=== PATIENT | female | born 1995 | race Caucasian/White ===

== ENCOUNTER 2024-06-01 17:53 | Emergency (ER) | payer MEDICAID, SELFPAY ==
[2024-06-01 17:54] VITALS: PULSE 94; O2SAT 98
[2024-06-01 18:04] VITALS: BP 128/83; PULSE 93; RESP 18; TEMP 36.8; O2SAT 99; BMI 28.1
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
[2024-06-01 19:09] LABS: Collection Type, Urine Clean Catch
[2024-06-01 19:14] LABS: Basophils # (Auto) 0.1 Thou/mm3 (0.0-0.2); Basophils % (Auto) 1 % (0-2.5); Eosinophils # (Auto) 0.4 Thou/mm3 (0.0-0.5); Eosinophils % (Auto) 4 % (0-10); Hematocrit 37.6 % (36.0-46.0); Hemoglobin 12.3 g/dL (12.0-16.0); Immature Granulocytes % (Auto) 0 % (0-0); Immature Granulocytes Auto 0.03 Thou/mm3 (0.00-0.00); Lymphocytes # (Auto) 2.2 Thou/mm3 (1.0-4.8); Lymphocytes % (Auto) 22 % (10-50); Mean Corpuscular HGB Conc 32.7 g/dl (31.0-37.0); Mean Corpuscular Hemoglobin 27.3 pg (25.0-35.0); Mean Corpuscular Volume 83 fL (80-100); Monocytes # (Auto) 0.6 Thou/mm3 (0.0-0.8); Monocytes % (Auto) 6 % (0-12); Neutrophils # (Auto) 6.8 Thou/mm3 (1.8-7.7); Neutrophils % (Auto) 67 % (37-80); Nucleated Red Blood Cell % 0 /100 WBC (0); Platelet Count 323 Thou/mm3 (140-440); RDW Standard Deviation 46.1 fL (36.4-46.3); Red Blood Count 4.51 Miln/mm3 (4.00-5.20); White Blood Count 10.1 Thou/mm3 (3.6-11.0)
[2024-06-01 19:26] LABS: Bacteria,Urine Rare; Bilirubin,Urine Negative (Negative); Blood,Urine 1+ (Negative); Clarity,Urine Clear (Clear/Hazy); Color,Urine Lt-Yellow (Lt Yel-Yel); Glucose, Urine Negative (Negative); Ketones,Urine Negative (Negative); Leukocyte Esterase,Urine Positive (Negative); Nitrite,Urine Positive (Negative); PH,Urine 5.5 (5.0-7.0); Protein,Urine Negative (Neg - Trace); RBC,Urine 3 /hpf (0-3); Specific Gravity,Urine 1.019 (1.001-1.035); Squamous Epithelial Cell,Urine 5 /hpf (0-5); Urobilinogen,Urine Negative mg/dL (0.0-1.0); WBC,Urine 7 /hpf (0-5)
[2024-06-01 19:27] LABS: HCG Qualitative,Urine Negative
[2024-06-01 19:33] LABS: Alanine Aminotransferase 8 U/L (10-49); Albumin, Serum 4.8 gm/dL (3.5-5.0); Albumin/Globulin Ratio 1.4 (1.2-2.2); Alkaline Phosphatase 81 U/L (46-116); Anion Gap 6 (7-16); Aspartate Amino Transferase 14 U/L (0-34); BUN/Creatinine Ratio 13 Ratio (12-20); Bilirubin,Total 0.4 mg/dL (0.3-1.2); Blood Urea Nitrogen 12 mg/dL (9-23); Calcium 9.7 mg/dL (8.3-10.6); Calcium (Corrected) 9.7 mg/dL (8.5-10.1); Carbon Dioxide 26.7 mMol/L (20.0-31.0); Chloride 106 mMol/L (98-107); Creatinine (Component) 0.9 mg/dL (0.6-1.3); Estimated Creatinine Clearance 92.8 mL/min (>60); Globulin 3.4 gm/dL (2.3-3.5); Glucose 97 mg/dL (74-106); Lipase 48 U/L (12-53); Osmolality,Calculated 277 (275-295); Potassium 3.8 mMol/L (3.4-5.1); Sodium 139 mMol/L (136-145); Total Protein 8.2 gm/dL (5.7-8.2); eGFR > 60 See Note
[2024-06-01 19:36] LABS: Amphetamine/Methamp Scrn,U Negative (Negative); Barbiturate Screen,Urine Negative (Negative); Benzodiazepines Screen,Urine Negative (Negative); Benzoylecgonine Screen, Ur Negative (Negative); Fentanyl Screen,Urine Negative (Negative); Opiate Screen,Urine Negative (Negative); THC Screen,Urine Negative (Negative)
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
== END 2024-06-01 23:02 | disposition home or self-care (01) ==
PROVIDERS: Physician Assistant; Emergency Provider Emergency Medicine; PCP Family Medicine
DX: R11.2 Nausea with vomiting, unspecified (principal); R19.7 Diarrhea, unspecified
CPT/HCPCS: 36415; 80053; 80307; 81001; 81025; 83690; 85025; 99283

== ENCOUNTER 2024-06-03 16:55 | Emergency (ER) | payer MEDICAID, SELFPAY ==
[2024-06-03 17:12] VITALS: BP 125/81; PULSE 89; RESP 19; TEMP 37.1; O2SAT 98; BMI 26.1
--- NOTE | 2024-06-03 17:12 | XR_ITS ---
Examination: PA lateral chest 2 views TECHNIQUE: Upright PA lateral chest 2 views Exam date and time: June 03, 2024 1816 hours Comparison August 29, 2021 INDICATIONS: Coughing beginning 3 days ago. FINDINGS: Accentuation basilar bronchovascular markings Normal heart size Normal Fracture right clavicle IMPRESSION: Basilar bronchitis pattern
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
--- NOTE | 2024-06-03 17:12 | PD.EDRME ---
Rapid Medical Screening Exam RME Arrival date/time: 06/03/24 16:55 29-year-old female presents the emergency department complaints of nausea, headache, generalized bodyaches and abdominal pain as well as constipation x 2 days Chief Complaint: Dizziness
[2024-06-03 18:06] LABS: Basophils # (Auto) 0.2 Thou/mm3 (0.0-0.2); Basophils % (Auto) 2 % (0-2.5); Eosinophils # (Auto) 0.4 Thou/mm3 (0.0-0.5); Eosinophils % (Auto) 4 % (0-10); Hemoglobin 11.9 g/dL (12.0-16.0); Immature Granulocytes % (Auto) 0 % (0-0); Immature Granulocytes Auto 0.02 Thou/mm3 (0.00-0.00); Lymphocytes % (Auto) 22 % (10-50); Mean Corpuscular HGB Conc 33.1 g/dl (31.0-37.0); Mean Corpuscular Hemoglobin 27.3 pg (25.0-35.0); Mean Corpuscular Volume 83 fL (80-100); Monocytes # (Auto) 0.6 Thou/mm3 (0.0-0.8); Monocytes % (Auto) 6 % (0-12); Neutrophils # (Auto) 6.2 Thou/mm3 (1.8-7.7); Neutrophils % (Auto) 67 % (37-80); Nucleated Red Blood Cell % 0 /100 WBC (0); Platelet Count 299 Thou/mm3 (140-440); RDW Standard Deviation 44.9 fL (36.4-46.3); Red Blood Count 4.36 Miln/mm3 (4.00-5.20); White Blood Count 9.3 Thou/mm3 (3.6-11.0)
[2024-06-03 19:29] LABS: Alanine Aminotransferase 8 U/L (10-49); Albumin, Serum 4.7 gm/dL (3.5-5.0); Albumin/Globulin Ratio 1.6 (1.2-2.2); Alkaline Phosphatase 79 U/L (46-116); Anion Gap 7 (7-16); Aspartate Amino Transferase 14 U/L (0-34); BUN/Creatinine Ratio 10 Ratio (12-20); Bilirubin,Total 0.5 mg/dL (0.3-1.2); Blood Urea Nitrogen 8 mg/dL (9-23); Calcium 9.1 mg/dL (8.3-10.6); Calcium (Corrected) 9.1 mg/dL (8.5-10.1); Carbon Dioxide 24.7 mMol/L (20.0-31.0); Chloride 105 mMol/L (98-107); Creatinine (Component) 0.8 mg/dL (0.6-1.3); Estimated Creatinine Clearance 108.3 mL/min (>60); Glucose 97 mg/dL (74-106); Lipase 38 U/L (12-53); Osmolality,Calculated 272 (275-295); Potassium 3.8 mMol/L (3.4-5.1); Sodium 137 mMol/L (136-145); Total Protein 7.7 gm/dL (5.7-8.2); eGFR > 60 See Note
[2024-06-03 20:15] LABS: Collection Type, Urine Clean Catch
[2024-06-03 21:01] LABS: Bilirubin,Urine Negative (Negative); Blood,Urine 1+ (Negative); Color,Urine Yellow (Lt Yel-Yel); Culture Indicated,Urine Contaminated; Glucose, Urine Negative (Negative); Hyaline Casts,Urine < 1 /hpf (0-1); Ketones,Urine Negative (Negative); Leukocyte Esterase,Urine Positive (Negative); Nitrite,Urine Positive (Negative); Protein,Urine 1+ (Neg - Trace); RBC,Urine 15 /hpf (0-3); Specific Gravity,Urine 1.023 (1.001-1.035); Squamous Epithelial Cell,Urine 40 /hpf (0-5); Urobilinogen,Urine Negative mg/dL (0.0-1.0); WBC,Urine 40 /hpf (0-5)
[2024-06-03 21:03] LABS: Clarity,Urine Turbid (Clear/Hazy); HCG Qualitative,Urine Negative
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
--- NOTE | 2024-06-03 22:45 | PC.NURSE ---
Pt called for DC instructions and no answer at time
[2024-06-04 00:12] LABS: Stool for WBCs Negative (Negative)
[2024-06-04 07:44] LABS: Clostridium Difficile PCR Negative (Negative)
== END 2024-06-03 23:18 | disposition home or self-care (01) ==
PROVIDERS: Nurse Practitioner Primary Care; Emergency Provider Emergency Medicine; PCP Family Medicine
DX: R19.7 Diarrhea, unspecified (principal); R05.9 Cough, unspecified; S32.10XA Unspecified fracture of sacrum, initial encounter for closed fracture; W34.00XA Accidental discharge from unspecified firearms or gun, initial encounter
CPT/HCPCS: 36415; 71046; 74176; 80053; 81001; 81025; 83690; 85025; 87015; 87045; 87046; 87077; 87205; 87400; 87493; 87811; 87899; 99284

== ENCOUNTER 2024-06-08 19:39 | Emergency (ER) | payer MEDICAID, SELFPAY ==
[2024-06-08 19:39] VITALS: BMI 27.9
[2024-06-08 20:33] VITALS: BP 132/74; PULSE 83; RESP 16; TEMP 36.7; O2SAT 100
--- NOTE | 2024-06-08 20:40 | PD.EDRME ---
Rapid Medical Screening Exam [facility] Arrival date/time: 06/08/24 19:39 29F with history of psych presents to ED with continued N/V, dizziness, ab cramping, and non-bloody diarrhea. Patient has been here multiples times in the past week for this. Patient states she's now and has clear vaginal discharge, but no vaginal bleeding. Chief Complaint: Abdominal Pain Vital signs: Vital Signs Temperature 98.0 F 06/08/24 20:33 Pulse Rate 83 06/08/24 20:33 Respiratory Rate 16 06/08/24 20:33 Blood Pressure 132/74 H 06/08/24 20:33 Pulse Oximetry (%) 100 06/08/24 20:33 Oxygen Delivery Method Room Air 06/08/24 20:33
[2024-06-08 21:12] LABS: Basophils # (Auto) 0.2 Thou/mm3 (0.0-0.2); Basophils % (Auto) 1 % (0-2.5); Eosinophils # (Auto) 0.4 Thou/mm3 (0.0-0.5); Eosinophils % (Auto) 3 % (0-10); Hematocrit 36.2 % (36.0-46.0); Hemoglobin 12.1 g/dL (12.0-16.0); Immature Granulocytes % (Auto) 0 % (0-0); Immature Granulocytes Auto 0.05 Thou/mm3 (0.00-0.00); Lymphocytes # (Auto) 2.3 Thou/mm3 (1.0-4.8); Lymphocytes % (Auto) 18 % (10-50); Mean Corpuscular HGB Conc 33.4 g/dl (31.0-37.0); Mean Corpuscular Hemoglobin 27.4 pg (25.0-35.0); Mean Corpuscular Volume 82 fL (80-100); Monocytes # (Auto) 0.7 Thou/mm3 (0.0-0.8); Monocytes % (Auto) 6 % (0-12); Neutrophils # (Auto) 8.9 Thou/mm3 (1.8-7.7); Neutrophils % (Auto) 71 % (37-80); Nucleated Red Blood Cell % 0 /100 WBC (0); Platelet Count 303 Thou/mm3 (140-440); RDW Standard Deviation 43.8 fL (36.4-46.3); Red Blood Count 4.41 Miln/mm3 (4.00-5.20); White Blood Count 12.6 Thou/mm3 (3.6-11.0)
[2024-06-08 21:49] LABS: Alanine Aminotransferase 8 U/L (10-49); Albumin, Serum 4.9 gm/dL (3.5-5.0); Albumin/Globulin Ratio 1.6 (1.2-2.2); Alkaline Phosphatase 80 U/L (46-116); Anion Gap 9 (7-16); Aspartate Amino Transferase 19 U/L (0-34); BUN/Creatinine Ratio 16 Ratio (12-20); Beta HCG,Quantitative 184 mIU/mL (<5.0); Bilirubin,Total 0.4 mg/dL (0.3-1.2); Blood Urea Nitrogen 13 mg/dL (9-23); Calcium 9.6 mg/dL (8.3-10.6); Calcium (Corrected) 9.6 mg/dL (8.5-10.1); Carbon Dioxide 23.8 mMol/L (20.0-31.0); Chloride 105 mMol/L (98-107); Creatinine (Component) 0.8 mg/dL (0.6-1.3); Globulin 3.1 gm/dL (2.3-3.5); Glucose 84 mg/dL (74-106); Lipase 42 U/L (12-53); Osmolality,Calculated 274 (275-295); Potassium 4.5 mMol/L (3.4-5.1); Sodium 138 mMol/L (136-145); eGFR > 60 See Note
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
[2024-06-08 23:26] VITALS: BP 149/87; PULSE 116; RESP 16; TEMP 36.8; O2SAT 100
[2024-06-08 23:29] LABS: Collection Type, Urine Clean Catch
--- NOTE | 2024-06-08 23:35 | EDNOTE_ITS ---
ED Abdominal Pain RME/HPI General Chief Complaint: Abdominal Pain Stated complaint: ABD PAIN, 5 WEEKS PREG. Arrival date/time: 06/08/24 19:39 RME / HPI RME / HPI narrative: 06/08/24 19:39 29F with history of psych presents to ED with continued N/V, dizziness, ab cramping, and non-bloody diarrhea. Patient has been here multiples times in the past week for this. Patient states she's now and has clear vaginal discharge, but no vaginal bleeding. ----- Dr. Mckenzie?s Main ED Evaluation: 29yo female who is 3wk 3d gestation by LMP presents to the ED for a chief complaint of left-sided abdominal pain x 1.5 months. Patient states her pain is intermittent. She states she's been taking Tylenol and ibuprofen without any alleviation of symptoms, so she came in for evaluation. She states she was seen at [facility] recently and was told she was . She had a follow-up appointment with her PCP at [facility] today, reporting her beta HCG level was 83. She reports associated nausea, intermittent vomiting, and watery diarrhea. She denies any bloody/black stools, UTI symptoms, vaginal bleeding, vaginal discharge, any foul-smelling odor, pelvic pain or any other associated symptoms. She denies taking any antacids. She has not seen an OB yet, but has an appointment on 06/12/24. LMP is 05/16/24-05/18/27 per patient. Patient notes she was started on cephalexin today by her PCP due to her urinalysis showing signs of UTI, and was given it for preventative measures. Related Data Previous Rx's ?Medication ?Instructions ?Recorded hydrocodone 5 mg-acetaminophen 325 1 tab PO BID PRN pain #6 tabs 04/25/24 mg tablet loperamide 2 mg capsule (Imodium 2 mg PO Q6H PRN loose stool #14 06/01/24 A-D) caps ondansetron 4 mg disintegrating 4 mg PO Q8H #14 tabs 06/01/24 tablet cephalexin 500 mg capsule 500 mg PO TID #15 caps 06/09/24 Allergies Allergy/AdvReac Type Severity Reaction Status Date / Time No Known Allergies Allergy Verified 04/25/24 13:47 Review of Systems Review of Systems Systems Reviewed: All systems reviewed, normal except as documented Narrative Review of Systems: Gen: No fever, no chills, no weight loss EYES: No discharge, no visual changes, no pain HEENT: No ear pain, no congestion, no sore throat PULM: No shortness of breath, no cough, no congestion CV: No chest pain, no dyspnea on exertion, no palpitations GI: + nausea, + vomiting, + diarrhea, + pain, no constipation : No frequency, no urgency, no dysuria Musc/skel: No joint pain, no back pain Skin: No rash Psyc: No hallucinations, no depression Heme/Lymph: No easy bleeding or bruising tendencies Neuro: No weakness, no headache Past Medical History Past Medical History NEUROLOGIC: Positive Migraine; Negative Neurological Disorders, Cerebrovascular Accident, Transient Ischemic Attacks (TIA), Dementia, Alzheimer's Disease, Parkinson's Disease, Brain Tumor, Meningitis, Seizures, Epilepsy, Multiple Sclerosis, Cerebral Palsy, Amyotrophic Lateral Sclerosis (ALS/Monse Gehrig's), Guillain-Fountain Syndrome, Spina Bifida, Paralysis, Peripheral Neuropathy, Stein's Palsy, Subdural Hematoma, Head Trauma, Spinal Cord Injury or Traumatic Brain Injury CARDIAC: Positive Cardiac Arrhythmia and Heart Murmur; Negative Cardiac Disorders, Myocardial Infarction, Atrial Fibrillation, Angina, Coronary Artery Disease, Atherosclerotic Heart Disease, Peripheral Vascular Disease, Hypercholesterolemia, Aneurysm, Congestive Heart Failure, Congenital Heart Disease, Valvular Heart Disease, Rheumatic Fever, Cardiomyopathy, Edema, Pericarditis, Cellulitis, Deep Vein Thrombosis, Hypertension, Hypotension or Varicose Veins RESPIRATORY: Negative Chronic Obstructive Pulmonary Disease (COPD), Asthma, Bronchitis, Emphysema, Pneumonia, Pulmonary Fibrosis, Cystic Fibrosis, Tuberculosis, Pulmonary Embolism, Pulmonary Edema or Sleep Apnea GASTROINTESTINAL: Negative Gastrointestinal Disorders, Hepatitis, Cirrhosis, Pancreatitis, Celiac Disease, Gall Bladder Disease, Gastrointestinal Bleed, Esophageal Varices, Heath's Esophagus, Colitis, Ulcerative Colitis, Diverticulitis, Diverticulosis, Ulcer, Colorectal Cancer, Irritable Bowel, Crohn's Disease, Obstructive Bowel, Hiatal Hernia, Hemorrhoids, Gastroesophageal Reflux Disease or Obesity GENITOURINARY: Negative Genitourinary Disorders, Renal Disease, Kidney Stones, Polycystic Kidney Disease, Neurogenic Bladder, Inguinal Hernia, Dialysis, Prostate Cancer or Benign Prostatic Hyperplasia REPRODUCTIVE: Positive Gonorrhea, Previous Pregnancies and Syphilis; Negative Breast Cancer, Endometriosis, Genital Herpes, Pelvic Inflammatory Disease, Testicular Cancer or Uterine Prolapse MUSCULOSKELETAL: Negative Musculoskeletal Disorders, Muscular Dystrophy, Myasthenia Gravis, Marfan's Syndrome, Bone Cancer, Arthritis, Rheumatoid Arthritis, Osteoporosis, Degenerative Disk Disease, Gout, Scoliosis, Carpal Tunnel Syndrome, Fibromyalgia, Fractures, Degenerative Joint Disease, Osteomyelitis or Poliovirus ENT: Negative Cataracts, Glaucoma, Blind, Retinal Detachment, Macular Degeneration, Ear Infection, Deafness, Head Trauma or Eye Prosthesis ENDOCRINE: Negative Endocrine Disorders, Diabetes Mellitus Type 1, Diabetes Mellitus Type 2, Hypoglycemia, Leroy's Syndrome, Girdletree's Disease, Hyperthyroidism, Hypothyroidism, Parathyroid Disease, Pituitary Disease, Systemic Lupus Erythematosus, Syndrome of Inappropriate Antidiuretic Hormone (SIADH), Adrenal Disease or Graves' Disease HEMATOLOGIC: Positive Blood Disorders and Anemia; Negative Leukemia, Hemophilia, Thalassemia, Sickle Cell Disease or Clotting Problems PSYCHO/SOCIAL: Positive Bipolar Disorder and Depression; Negative Psychiatric Problems, Schizophrenia, Recreational Drug Use, Depression, Anxiety, Self-Mutilation, Attention Deficit Disorder, Attention Deficit Hyperactivity Disorder, Post Traumatic Stress Disorder or Eating Disorder OTHER HISTORY: Positive Hospitalization and Blood Transfusions; Negative Autoimmune Disease, Down Syndrome, Autism, Developmental Delay, Shingles, Falls, Blood Transfusion Reaction, Anesthesia Reactions, Organ Transplant, Chemotherapy, Radiation Therapy, Hyperbaric Therapy, MRSA, VRSA, Van comycin-Resistant Enterococci, Human Immunodeficiency Virus (HIV), Chicken Pox, Measles, Mumps, Rubella (Cypriot Measles), Pertussis, Clostridium Difficile, Cancer, Breast Cancer, Cervical Cancer, Colorectal Cancer, Lung Cancer, Ovarian Cancer, Prostate Cancer or Testicular Cancer Family History FAMILY HISTORY: Positive Family Respiratory Disorders and Family Cancer; Negative Family Psychiatric Problems, Family Cardiac Disorders, Family Gastrointestinal Problems, Family Surgery or Family Anesthesia Reaction Surgical History SURGICAL: Positive Mastectomy; Negative Cardiac Surgery, Open Heart Surgery, Coronary Artery Bypass Graft, Valve Replacement, Vascular Surgery, Coronary Stent, Cardiac Catheterization, Pacemaker, Angiogram, Auto Implanted Cardiovert Defib, Carotid Endarterectomy, Endocrine Surgery, Thyroidectomy, Ear Surgery, Tympanostomy Tube, Eye Surgery, Nose Surgery, Oral Surgery, Tonsillectomy, Adenoidectomy, Cochlear Implant, Corneal Transplant, Throat Surgery, Abdominal Surgery, Tracheostomy, Gastric Bypass Surgery, Gastrostomy, Bowel Surgery, Nephrectomy, Transurethral Resection, Joint Replacement, Amputation, Open Reduction Internal Fixation, Arthroscopy, Neurologic Surgery, Brain Shunt, Lumpectomy, Hysterectomy, Tubal Ligation, Section, Vasectomy or Organ Transplant Social History SMOKING STATUS: Never smoker SECOND HAND EXPOSURE: No SUBSTANCE USE: does not use ED Exam Narrative Physical exam: GENERAL APPEARANCE: alert and oriented x 4, well-developed, well-nourished, no acute distress HEENT: Normocephalic, atraumatic; pupils equal, round, reactive to light; EOMI; mucous membranes pink, moist; oropharynx clear NECK: Supple LUNGS: CTABL; no wheezes, no rales, no rhonchi HEART: Regular rate, regular rhythm; normal S1, S2; no murmurs ABDOMEN: non distended; normal BS; soft, no tenderness, no guarding, no rebound; no masses, no organomegaly, no hernia BACK: no CVA tenderness EXTREMITIES: atraumatic; no edema NEUROLOGIC: awake; alert and oriented x4; cranial nerves II-XII grossly intact; no focal sensory or motor deficits PSYCHIATRIC: appropriate mood and affect SKIN: warm, dry, normal color; no rashes Course Quality Measures none Orders Category Date Time Status Insert IV NOW Care 06/09/24 01:48 Completed US OB transvaginal Stat Exams 06/08/24 21:50 Completed US renal BI Stat Exams 06/09/24 01:35 Completed Beta HCG,Quantitative Stat Lab 06/08/24 21:06 Completed CBC Stat Lab 06/08/24 21:06 Completed CMP [Comprehensive Metabolic Panel] Stat Lab 06/08/24 21:06 Completed Lipase Stat Lab 06/08/24 21:06 Completed Urinalysis Stat Lab 06/08/24 23:58 Completed Urinalysis, C/S if Indicated Stat Lab 06/08/24 23:20 Completed HYDROcodone*/APAP 5/325 [[place] 5/325] Med 06/09/24 01:38 Discontinued 1 tab PO X1 ONE Lidocaine 2% Viscous [Xylocaine 2% Viscous] Med 06/09/24 01:38 Discontinued 15 ml PO X1 ONE Sodium Chloride 0.9% 1000 ml [Ns] 1,000 ml Med 06/09/24 01:37 Discontinued IV 999 mls/hr Sucralfate Susp [Carafate Susp] Med 06/09/24 01:38 Discontinued 1 gm PO X1 ONE cefTRIAXone [Rocephin] 1,000 mg Med 06/09/24 01:37 Discontinued Sodium Chloride 0.9% (P) [Ns 0.9% (P)] 50 ml IV X1 Vital Signs Vital signs: Vital Signs Temperature 98.0 F 06/08/24 20:33 Pulse Rate 83 06/08/24 20:33 Respiratory Rate 16 06/08/24 20:33 Blood Pressure 132/74 H 06/08/24 20:33 Pulse Oximetry (%) 100 06/08/24 20:33 Oxygen Delivery Method Room Air 06/08/24 20:33 Pulse ox is 100% on room air, which is normal according to my interpretation. Abdominal Pain MDM MDM Narrative MDM Narrative:: Scribe Attestation: 06/08/24 - Tresa Devine am scribing for and in the presence of Dr. Mckenzie. Patient would be 3weeks 3 days gestation by LMP. Patient data External records reviewed:: [facility] previous records (Per chart review, patient was seen here on ) Clinical information provided by:: patient Social determinants that could affect healthcare access:: none Patient has the following chronic illnesses:: none How is presenting disease/condition affected by chronic disease/condition?: no chronic disease Evaluation data The following diagnostics were reviewed and interpreted by me:: lab results and radiology exam(s) Lab and/or radiology exams considered but not ordered:: none Interpretation Summary: WBC count is elevated at 12.6, CMP is normal, Lipase is normal, Beta HCG is 184, UA shows 4 RBCs, 40 WBCs, and rare bacteria, according to my interpretation. ---- [facility] Report Signed Patient: XANDER VITALE. Record#: [id number] Birthdate: 1995 Age/Sex: 29 / F Location: [facility] Attending Dr: Ordering Physician: Cesar Shea PA-C Date of Service: 06/08/24 Procedure(s): US OB transvaginal Accession Number(s): [id number] cc: Ronnie Rodriguez MD; NO PRIMARY/FAMILY,PHYSICIAN; Cesar Shea PA-C~ Examination: OB Transvaginal ultrasound of the pelvis, complete Technique: Transvaginal sonographic images pelvis performed using gusman scale imaging Exam date and time: June 08, 2024 at 2156 hrs. Indications: Pelvic pain beginning this week, early by history Findings: Uterus 9.3 x 5.5 x 6.6 cm No intrauterine gestation Right ovary 3.2 x 2.6 x 2.7 cm arterial flow Gestational type sac in the right adnexal region, 0.9 cm corresponding to 5 weeks 5 day gestational age No pole Left ovary 2.5 x 2.0 x 2.0 cm arterial flow Moderate fluid in the cul-de-sac Impression: No intrauterine gestation Findings most consistent with right ectopic . Dictated By: Ronnie Rodriguez MD Signed By: <Electronically signed by Ronnie Rodriguez MD in OV> 06/08/24 2233 [address] Preliminary Report Draft Patient: XANDER VITALE [facility]. Record#: [id number] Birthdate: 1995 Age/Sex: 29 / F Location: [facility] Attending Dr: Ordering Physician: Date of Service: Procedure(s): Accession Number(s): cc: ~ Renal/Retroperitoneal ultrasound with Doppler. June 09, 2024 at 0155 hours Clinical history: Flank pain, UTI. Technique: Duplex scan of the bilateral renal arterial and venous tree was performed utilizing 2D grayscale imaging, Doppler spectral analysis and color flow. Comparison: None available at the time of this report. Findings: Right: The right kidney measures 11.8 cm and is unremarkable. There is no hydronephrosis or renal calculus. The corticomedullary differentiation is maintained. Parenchymal scarring and lobular margins. Left: The left kidney measures 11.2 cm and is unremarkable. There is no hydronephrosis or renal calculus. The corticomedullary differentiation is maintained. Parenchymal scarring and lobular margins. The urinary bladder is unremarkable. No abnormalities detected by Doppler. Impression: No hydronephrosis. Bilateral parenchymal scarring and lobular margins. Report Electronically Signed By: Walter Jacobs 06/09/2024 3:18:54 AM [EST] Medications / Prescriptions Medications or Prescriptions considered but not ordered:: none Medication administrations:: Medication Administration History Discontinued Medications Hydrocodone Bitart/Acetaminophen (Hydrocodone/Apap 5/325 Tablet) 1 tab PO X1 ONE Stop: 06/09/24 01:39 Last Admin: 06/09/24 02:19 Dose: 1 tab Documented By: AGUSTÍN Ceftriaxone Sodium 1,000 mg/ (Sodium Chloride) 50 mls @ 100 mls/hr IV X1 ONE Stop: 06/09/24 02:06 Last Infusion: 06/09/24 02:50 Dose: Infused Documented By: Admin: 06/09/24 02:19 Dose: 100 mls/hr Documented By: AGUSTÍN Sodium Chloride (Ns) 1,000 mls @ 999 mls/hr IV .Q1H1M ONE Stop: 06/09/24 02:37 Last Infusion: 06/09/24 03:21 Dose: Infused Documented By: Admin: 06/09/24 02:18 Dose: 999 mls/hr Documented By: AGUSTÍN Lidocaine HCl (Lidocaine Viscous 2% 15 Ml Udc) 15 ml PO X1 ONE Stop: 06/09/24 01:39 Last Admin: 06/09/24 02:20 Dose: 15 ml Documented By: AGUSTÍN Sucralfate (Sucralfate Susp 1 Gm/10 Ml Udc) 1 gm PO X1 ONE Stop: 06/09/24 01:39 Last Admin: 06/09/24 02:26 Dose: 1 gm Documented By: AGUSTÍN see above Consultations Consultation(s) initiated? (list below): Yes Consultation #1 (Physician, Specialty, Details): Discussed case with [Dr. Valenzuela] from [[facility]] regarding [consultation]. Discussed patients ED course, exam findings, labs, and radiology results. Recommends following up in 2 days for recheck of beta HCG and recheck possible ectopic. Time: 03:25 Diagnosis Differential diagnosis abdominal pain: other (tubercular abscess, ectopic , ovarian cyst, gastritis, enteritis, colitis) Most likely diagnosis given after review of the tests above:: see below Admission Indicated Admission indicated?: not indicated Admission Request Was there a request for admission?: No Disposition Plan Disposition Plan: Discharge Discharge Attestation Discharge Attestation: The patient and all family members were given an opportunity to ask questions and understood the discharge instructions. Discharge instructions specifically effects, indications for sooner follow up or return to the emergency department, and the expected course of current diagnosis. Patient condition: Stable Discharge Plan Plan Patient Disposition: HOME (Self Care) Prescriptions/Referrals Prescriptions/Med Rec: New cephalexin 500 mg capsule 500 mg PO TID Qty: 15 0RF No Action loperamide [Imodium A-D] 2 mg capsule 2 mg PO Q6H PRN (Reason: loose stool) Qty: 14 0RF ondansetron 4 mg tablet,disintegrating 4 mg PO Q8H Qty: 14 0RF hydrocodone-acetaminophen 5-325 mg tablet 1 tab PO BID MDD 10 PRN (Reason: pain) Qty: 6 0RF Referrals: No Primary/Family,Physician [Primary Care Provider] - In 1 week Problem List Clinical Impression: UTI (urinary tract infection), Adnexal mass, Epigastric abdominal pain, , Gastritis Patient/Caregiver Discharge Instructions Education Materials: ED Abdominal Pain Unkn Cause Fem, ED CYSTITIS Female Adult Additional Instructions: Your pelvic ultrasound shows a small mass in the area of the right ovary which may be consistent with an ectopic , however your hormone levels do not correspond with a at that stage. (06/08/24 21:06 [facility] 184) Follow up for repeat evaluation and lab work to check hormone levels in 2 days. Print Language: [place] Stand Alone Forms: Sally Award Info., Patient Portal Info Letter
[2024-06-08 23:38] LABS: Bacteria,Urine Rare; Bilirubin,Urine Negative (Negative); Blood,Urine 1+ (Negative); Clarity,Urine Turbid (Clear/Hazy); Color,Urine Yellow (Lt Yel-Yel); Culture Indicated,Urine Contaminated; Glucose, Urine Negative (Negative); Ketones,Urine Negative (Negative); Leukocyte Esterase,Urine Positive (Negative); Nitrite,Urine Positive (Negative); PH,Urine 5.5 (5.0-7.0); Protein,Urine Trace (Neg - Trace); RBC,Urine 2 /hpf (0-3); Specific Gravity,Urine 1.025 (1.001-1.035); Squamous Epithelial Cell,Urine 12 /hpf (0-5); Urobilinogen,Urine Negative mg/dL (0.0-1.0); WBC,Urine 40 /hpf (0-5)
[2024-06-09 00:13] LABS: Collection Type, Urine Catheter
[2024-06-09 00:17] LABS: Bacteria,Urine Rare; Bilirubin,Urine Negative (Negative); Blood,Urine Trace (Negative); Clarity,Urine Clear (Clear/Hazy); Color,Urine Lt-Yellow (Lt Yel-Yel); Glucose, Urine Negative (Negative); Ketones,Urine Negative (Negative); Leukocyte Esterase,Urine Positive (Negative); Nitrite,Urine Positive (Negative); Protein,Urine Trace (Neg - Trace); RBC,Urine 4 /hpf (0-3); Specific Gravity,Urine 1.025 (1.001-1.035); Squamous Epithelial Cell,Urine 1 /hpf (0-5); Urobilinogen,Urine Negative mg/dL (0.0-1.0); WBC,Urine 40 /hpf (0-5)
--- NOTE | 2024-06-09 01:35 | XR_ITS ---
Examination: Retroperitoneal ultrasound, complete Technique: Multiple high resolution grayscale images of the retroperitoneum obtained, including kidneys and bladder. Exam date and time:June 09, 2024 0155 hours INDICATIONS: Urinary tract infections and bilateral flank pain beginning one month ago FINDINGS: Right kidney 11.8 x 4.8 x 5.8 cm cortex 1.7 cm Left kidney 11.2 x 4.1 x 4.8 cm cortex 1.8 cm Mild to moderate bilateral renal parenchymal scar formation No hydronephrosis Contracted urinary bladder, volume 44 cc IMPRESSION: Mild to moderate bilateral renal parenchymal scar formation No hydronephrosis
--- NOTE | 2024-06-09 01:54 | PC.NURSE ---
PT TO ULTRASOUND AT THIS TIME.
[2024-06-09] MEDS: SODIUM CHLORIDE 0.9% 1000 ML 1,000 ML 999 ML IV (02:18)
[2024-06-09] MEDS: cefTRIAXone 1,000 MG in SODIUM CHLORIDE 0.9% (P) 50 ML 100 MG IV (02:19)
[2024-06-09] MEDS: HYDROcodone/APAP 5/325 TABLET 1 TAB PO (02:19)
[2024-06-09] MEDS: LIDOCAINE VISCOUS 2% 15 ML UDC PO (02:20)
[2024-06-09] MEDS: SUCRALFATE SUSP 1 GM/10 ML UDC PO (02:26)
[2024-06-09 02:28] VITALS: BP 100/58; PULSE 77; RESP 16; TEMP 36.7; O2SAT 100
--- NOTE | 2024-06-09 03:19 | PRELIM_ITS ---
Renal/Retroperitoneal ultrasound with Doppler. June 09, 2024 at 0155 hours Clinical history: Flan k pain, UTI.Technique: Duplex scan of the bilateral renal arterial and venous tree was performed util izing 2D grayscale imaging, Doppler spectral analysis and color flow. Comparison: None available at t he time of this report.Findings:Right: The right kidney measures 11.8 cm and is unremarkable. There i s no hydronephrosis or renal calculus. The corticomedullary differentiation is maintained. Parenchym al scarring and lobular margins.Left: The left kidney measures 11.2 cm and is unremarkable. There is no hydronephrosis or renal calculus. The corticomedullary differentiation is maintained. Parenchymal scarring and lobular margins.The urinary bladder is unremarkable.No abnormalities detected by Doppler .Impression:No hydronephrosis.Bilateral parenchymal scarring and lobular margins. Report Electronical ly Signed By: Walter Jacobs 06/09/2024 3:18:54 AM [EST]
[2024-06-09 04:02] VITALS: BP 111/80; PULSE 94; RESP 16; O2SAT 99
== END 2024-06-09 04:05 | disposition home or self-care (01) ==
PROVIDERS: Physician Assistant; Emergency Provider Emergency Medicine
DX: O23.41 Unspecified infection of urinary tract in pregnancy, first trimester (principal); N39.0 Urinary tract infection, site not specified; N83.8 Other noninflammatory disorders of ovary, fallopian tube and broad ligament; N28.89 Other specified disorders of kidney and ureter; Z3A.01 Less than 8 weeks gestation of pregnancy
CPT/HCPCS: 36415; 76770; 76817; 80053; 81001; 83690; 84702; 85025; 87086; 96361; 96365; 99284; J0696; J3490; J7030; J7050; A9270

== ENCOUNTER 2024-06-12 09:45 | Emergency (ER) | payer MEDICAID, SELFPAY ==
[2024-06-12 09:47] VITALS: BMI 28.3
[2024-06-12 09:48] VITALS: BP 120/80; PULSE 95; RESP 19; TEMP 36.8; O2SAT 98
--- NOTE | 2024-06-12 09:56 | XR_ITS ---
Examination: OB Transvaginal ultrasound of the pelvis, complete Technique: Transvaginal sonographic images pelvis performed using gusman scale imaging Exam date and time: June 12, 2024 1051 hrs. Indications: Onset pelvic pain beginning 5 days ago Pelvic transvaginal sonogram June 08, 2024 findings consistent with right ectopic Findings: Uterus 9.8 x 5.3 x 6.1 cm Uterine body tiny cystic area 0.3 cm which may represent an early intrauterine gestation, 5 weeks 0 days No pole or cardiac activity Right ovary 3.8 x 2.9 x 2.5 cm arterial flow, 11 x 8 x 8 mm gestational sac corresponding to 5 weeks 5 day gestational age, no pole Left ovary 3.3 x 1.6 x 1.87 arterial flow Impression: Findings remain consistent with right ectopic Suggest continued follow-up also to exclude tiny intrauterine gestational sac.
--- NOTE | 2024-06-12 09:56 | PD.EDFMALE ---
ED Female Urogenital RME/HPI General Chief complaint: Urogenital-Female Stated complaint: POSS ECTOPIC Time Seen by Provider: 06/12/24 09:52 Source: patient, RN notes reviewed and old records reviewed Arrival date/time: 06/12/24 09:45 Mode of arrival: ambulatory Limitations: no limitations RME / HPI RME / HPI Narrative: 29yof presents to ED for reeval for pelvic cramping. Patient was evaluated in ED 06/09 for same complaint; US showed right adnexal mass, hcg was 184 at that time. Patient had f/u with ob today (Ekta Batres) who referred to ED for further evaluation. No fever, n/v or vaginal bleeding reported. Related Data Previous Rx's ?Medication ?Instructions ?Recorded hydrocodone 5 mg-acetaminophen 325 1 tab PO BID PRN pain #6 tabs 04/25/24 mg tablet loperamide 2 mg capsule (Imodium 2 mg PO Q6H PRN loose stool #14 06/01/24 A-D) caps ondansetron 4 mg disintegrating 4 mg PO Q8H #14 tabs 06/01/24 tablet cephalexin 500 mg capsule 500 mg PO TID #15 caps 06/09/24 Allergies Allergy/AdvReac Type Severity Reaction Status Date / Time No Known Allergies Allergy Verified 06/12/24 09:51 Review of Systems Review of Systems Systems Reviewed: All systems reviewed, normal except as documented Constitutional Constitutional: Denies fever(s) Gastrointestinal Gastrointestinal: Denies nausea and Denies vomiting Genitourinary Genitourinary: Denies abnormal vaginal bleeding and Reports pelvic pain Musculoskeletal Musculoskeletal: Denies back pain Past Medical History Past Medical History NEUROLOGIC: Positive Migraine CARDIAC: Positive Heart Murmur REPRODUCTIVE: Positive Previous Pregnancies HEMATOLOGIC: Positive Anemia PSYCHO/SOCIAL: Positive Bipolar Disorder and Depression OTHER HISTORY: Positive Blood Transfusions Social History SMOKING STATUS: Never smoker SUBSTANCE USE: does not use ED Exam General Limitations: Present no limitations General appearance: Present alert and in no apparent distress Head Head exam: Present atraumatic and normocephalic Eye Eye exam: Present normal appearance, PERRL and EOMI ENT ENT exam: Present normal exam and mucous membranes moist Neck Neck exam: Present normal inspection and full ROM Chest Chest inspection: Present normal inspection and symmetric chest wall rise Respiratory Respiratory exam: Present normal lung sounds bilaterally; Absent respiratory distress Cardiovascular Cardiovascular exam: Present regular rate and normal rhythm Abdominal Exam Abdominal exam: Present soft; Absent distention or tenderness Extremities Exam Extremities exam: Present normal inspection and full ROM Neurological Exam Neurological exam: Present alert and oriented X3 Psychiatric Psychiatric exam: Present normal affect and normal mood Skin Skin exam: Present warm, dry, intact and normal color Course Course Course Narrative: 1215: Consult to ob, Dr. Gant. Will come down and evaluate patient in ED. Quality Measures none Orders Category Date Time Status US OB transvaginal Stat Exams 06/12/24 09:56 Completed Beta HCG,Quantitative Stat Lab 06/12/24 10:29 Completed Vital Signs Vital signs: Vital Signs Temperature 98.3 F 06/12/24 09:48 Pulse Rate 95 06/12/24 09:48 Respiratory Rate 19 06/12/24 09:48 Blood Pressure 120/80 06/12/24 09:48 Pulse Oximetry (%) 98 06/12/24 09:48 Oxygen Delivery Method Room Air 06/12/24 09:48 Urogenital - Female MDM Narrative MDM Narrative:: 29yof presents to ED for reeval for pelvic cramping. Patient was evaluated in ED 06/09 for same complaint; US showed right adnexal mass, hcg was 184 at that time. Patient had f/u with ob today (Ekta Batres) who referred to ED for further evaluation. No fever, n/v or vaginal bleeding reported. Differential includes heterotopic vs intrauterine with right corpus luteum cyst (most likely). Patient was evaluated by Dr. Gant who recommends clinic follow up in 2-3 days. Patient updated on plan of care. Stable for dc, RTED precautions given. Patient data External records reviewed:: [facility] previous records (ED visit 06/09/24 for pelvic pain) Clinical information provided by:: patient Social determinants that could affect healthcare access:: none Patient has the following chronic illnesses:: anemia, bipolar How is presenting disease/condition affected by chronic disease/condition?: uneffected by Evaluation data The following diagnostics were reviewed and interpreted by me:: lab results and radiology exam(s) Lab and/or radiology exams considered but not ordered:: none Interpretation Summary: hCG quant 911 (increased from 184 on 06/08) Ob ultrasound: Impression: Findings remain consistent with right ectopic Suggest continued follow-up also to exclude tiny intrauterine gestational sac. Dictated By: Ronnie Rodriguez MD Medications / Prescriptions Medications or Prescriptions considered but not ordered:: no antibiotics recommended at this time Medication administrations:: none Consultations Consultation(s) initiated? (list below): No Diagnosis Urogenital Female Differential Diagnosis: other (, abdominal pain in , ectopic, ruptured ectopic, uti, threatened miscarriage) Most likely diagnosis given after review of the tests above:: pelvic pain in Admission Indicated Admission indicated?: not indicated Admission Request Was there a request for admission?: No Disposition Plan Disposition Plan: Discharge Discharge Attestation Discharge Attestation: The patient and all family members were given an opportunity to ask questions and understood the discharge instructions. Discharge instructions specifically effects, indications for sooner follow up or return to the emergency department, and the expected course of current diagnosis. Patient condition: Stable Discharge Plan Plan Patient Disposition: HOME (Self Care) Patient condition on transfer: Stable Prescriptions/Referrals Prescriptions/Med Rec: No Action loperamide [Imodium A-D] 2 mg capsule 2 mg PO Q6H PRN (Reason: loose stool) Qty: 14 0RF ondansetron 4 mg tablet,disintegrating 4 mg PO Q8H Qty: 14 0RF cephalexin 500 mg capsule 500 mg PO TID Qty: 15 0RF hydrocodone-acetaminophen 5-325 mg tablet 1 tab PO BID MDD 10 PRN (Reason: pain) Qty: 6 0RF Referrals: Juan Luis Amaral MD [Primary Care Provider] - In 1 week Juan Gant MD [Physician] - 06/14/24 (for repeat hcg) Problem List Clinical Impression: Pelvic pain during Patient/Caregiver Discharge Instructions Education Materials: ED Abdominal Pain, Early Print Language: Arabic Stand Alone Forms: Sally Award Info., Patient Portal Info Letter
[2024-06-12 11:12] LABS: Beta HCG,Quantitative 911 mIU/mL (<5.0)
--- NOTE | 2024-06-12 14:49 | PD.GYNCONS ---
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 Patient denies any vaginal bleeding. During her recent visits she has been noted to have a cystic structure in the right adnexa which might be suggestive ectopic . Today ultrasound also shows a intrauterine gestational sac. Serum hCG was 184 on 06/09/2024 and it is 900 today. cc:: cc: Review of Systems Review of Systems Systems Reviewed: All systems reviewed, normal except as documented Meds Home Medications and Allergies Allergies Allergy/AdvReac Type Severity Reaction Status Date / Time No Known Allergies Allergy Verified 06/12/24 09:51 Exam - MOTION STUDY ENGINEER Vital Signs Temp Pulse Resp BP Pulse Ox O2 Del Method 98.3 F 95 19 120/80 98 Room Air 06/12/24 09:48 06/12/24 09:48 06/12/24 09:48 06/12/24 09:48 06/12/24 09:48 06/12/24 09:48 Constitutional Constitutional: no acute distress Routine HEENT Exam Head: Present normocephalic and atraumatic Eye: Present EOMI and PERRL ENT: Present mucous membranes moist Routine Neck Exam Neck: Present supple and trachea midline Routine Respiratory Exam Respiratory: Present chest non-tender, lungs clear, normal breath sounds and no resp distress Routine Cardiovascular Exam Cardiovascular: Present RRR Routine Abdominal Exam Abdominal: Present soft and normoactive bowel sounds Routine Extremities Exam Extremities: Present full ROM Routine Skin Exam Skin: Present intact and dry Routine Neurological Exam Neurological: Present alert, oriented X3 and CN II-XII intact Routine Psychiatric Exam Psychiatric: Present normal affect and normal thought process Assessment and Plan Assessment and plan (1) Pelvic pain during : Status: Acute (2) of unknown anatomic location: Status: Acute Assessment and plan: 29-year-old with of unknown anatomic location. At this time differential diagnosis could include right ectopic with intrauterine , heterotopic , intrauterine with prominent corpus luteum cyst. Due to the risk of interruption of intrauterine with any surgical intervention patient was counseled regarding all the above scenarios. After review of all the information and being given the opportunity to ask questions she elected in favor of close monitoring with serial hCGs every 2 to 3 days and office visit with me every 2 to 3 days. Serial hCG orders placed. Patient will follow-up with me as scheduled. Patient was extensively counseled to stay within reasonable driving distance from the hospital and warning signs were discussed with her which would necessitate for her to return to the hospital/emergency room. She verbalized understanding.
== END 2024-06-12 12:50 | disposition home or self-care (01) ==
PROVIDERS: Physician Assistant; Emergency Provider Emergency Medicine; PCP Family Medicine
DX: O99.891 Other specified diseases and conditions complicating pregnancy (principal); R10.2 Pelvic and perineal pain
CPT/HCPCS: 36415; 76817; 84702; 99284

== ENCOUNTER 2024-06-18 21:31 | Observation (INO) | payer MEDICAID, SELFPAY ==
[2024-06-18 21:33] VITALS: BMI 27.8
[2024-06-18 21:46] VITALS: BP 129/83; PULSE 86; RESP 18; TEMP 36.9; O2SAT 99
--- NOTE | 2024-06-18 22:00 | XR_ITS ---
Examination: OB Transvaginal ultrasound of the pelvis, complete Technique: Transvaginal sonographic images pelvis performed using gusman scale imaging Exam date and time: June 18, 2024 1008 hrs. Indications: Pelvic sonogram June 12, 2024 no intrauterine gestation, right ectopic pelvic pain this week Findings: Uterus 8.1 x 5.6 x 6.2 cm Intrauterine gestational sac 1.0 cm corresponds to 5 weeks 5 day gestational age No pole no cardiac activity Subchorionic hemorrhage 11 x 24 mm Right ovary 2.6 x 1.9 x 2.6 cm arterial flow 18.6 x 8 mm cyst increased vascularity around the right ovary but no solid mass on this study Left ovary obscured by bowel gas Impression: On this study intrauterine gestational sac corresponding to 5 weeks 5 day gestational age No pole, no cardiac activity Right adnexal mass is not depicted on this examination Short-term continued follow-up transvaginal pelvic sonography strongly recommended
--- NOTE | 2024-06-18 22:01 | PD.EDRME ---
Rapid Medical Screening Exam RME Arrival date/time: 06/18/24 21:31 29F with no significant PMH presents to ED with worsening pelvic pain. Possible ectopic based on previous US. Patient has been seeing Dr. Gant. Patient denies vaginal bleeding, but possibly hematuria. Chief Complaint: Abdominal Pain Time Seen by Provider: 06/18/24 21:58 Vital signs: Vital Signs Temperature 98.5 F 06/18/24 21:46 Pulse Rate 86 06/18/24 21:46 Respiratory Rate 18 06/18/24 21:46 Blood Pressure 129/83 06/18/24 21:46 Pulse Oximetry (%) 99 06/18/24 21:46 Oxygen Delivery Method Room Air 06/18/24 21:46
[2024-06-18 22:59] LABS: Collection Type, Urine Clean Catch
[2024-06-18 23:00] LABS: Basophils # (Auto) 0.2 Thou/mm3 (0.0-0.2); Basophils % (Auto) 2 % (0-2.5); Eosinophils # (Auto) 0.4 Thou/mm3 (0.0-0.5); Eosinophils % (Auto) 4 % (0-10); Hematocrit 35.2 % (36.0-46.0); Hemoglobin 11.7 g/dL (12.0-16.0); Immature Granulocytes % (Auto) 0 % (0-0); Immature Granulocytes Auto 0.03 Thou/mm3 (0.00-0.00); Lymphocytes # (Auto) 2.4 Thou/mm3 (1.0-4.8); Lymphocytes % (Auto) 22 % (10-50); Mean Corpuscular HGB Conc 33.2 g/dl (31.0-37.0); Mean Corpuscular Hemoglobin 27.4 pg (25.0-35.0); Mean Corpuscular Volume 82 fL (80-100); Monocytes # (Auto) 0.7 Thou/mm3 (0.0-0.8); Monocytes % (Auto) 6 % (0-12); Neutrophils # (Auto) 7.1 Thou/mm3 (1.8-7.7); Neutrophils % (Auto) 66 % (37-80); Nucleated Red Blood Cell % 0 /100 WBC (0); Platelet Count 305 Thou/mm3 (140-440); RDW Standard Deviation 46.1 fL (36.4-46.3); Red Blood Count 4.27 Miln/mm3 (4.00-5.20); White Blood Count 10.8 Thou/mm3 (3.6-11.0)
[2024-06-18 23:17] LABS: Bilirubin,Urine Negative (Negative); Blood,Urine Negative (Negative); Clarity,Urine Clear (Clear/Hazy); Color,Urine Lt-Yellow (Lt Yel-Yel); Culture Indicated,Urine Not Indicated; Glucose, Urine Negative (Negative); Ketones,Urine Negative (Negative); Leukocyte Esterase,Urine Negative (Negative); Nitrite,Urine Negative (Negative); PH,Urine 6.5 (5.0-7.0); Protein,Urine Negative (Neg - Trace); RBC,Urine 8 /hpf (0-3); Specific Gravity,Urine 1.025 (1.001-1.035); Squamous Epithelial Cell,Urine 3 /hpf (0-5); Urobilinogen,Urine Negative mg/dL (0.0-1.0); WBC,Urine 2 /hpf (0-5)
[2024-06-18 23:46] LABS: Alanine Aminotransferase 13 U/L (10-49); Albumin, Serum 4.7 gm/dL (3.5-5.0); Albumin/Globulin Ratio 1.5 (1.2-2.2); Alkaline Phosphatase 74 U/L (46-116); Anion Gap 6 (7-16); Aspartate Amino Transferase 18 U/L (0-34); BUN/Creatinine Ratio 17 Ratio (12-20); Beta HCG,Quantitative 8592 mIU/mL (<5.0); Bilirubin,Total 0.3 mg/dL (0.3-1.2); Blood Urea Nitrogen 12 mg/dL (9-23); Calcium 9.7 mg/dL (8.3-10.6); Calcium (Corrected) 9.7 mg/dL (8.5-10.1); Chloride 107 mMol/L (98-107); Creatinine (Component) 0.7 mg/dL (0.6-1.3); Estimated Creatinine Clearance 118.6 mL/min (>60); Globulin 3.1 gm/dL (2.3-3.5); Glucose 92 mg/dL (74-106); Osmolality,Calculated 275 (275-295); Sodium 138 mMol/L (136-145); Total Protein 7.8 gm/dL (5.7-8.2); eGFR > 60 See Note
[2024-06-19] VITALS (7 sets, daily range): BP systolic 98–115; BP diastolic 59–73; PULSE 68–88; RESP 17–18; TEMP 36.3–36.7; O2SAT 96–100; BMI 28.3
--- NOTE | 2024-06-19 00:39 | EDNOTE_ITS ---
ED Abdominal Pain RME/HPI General Chief Complaint: Abdominal Pain Stated complaint: HEART RACING, DIZZY, POSSIBLE ECTOPIC Time seen by provider: 06/18/24 21:58 Arrival date/time: 06/18/24 21:31 Limitations: no limitations RME / HPI RME / HPI narrative: 06/18/24 21:31 29F with no significant PMH presents to ED with worsening pelvic pain. Possible ectopic based on previous US. Patient has been seeing Dr. Gant. Patient denies vaginal bleeding, but possibly hematuria. ----- Dr. Reed's Main ED Evaluation: 29yo female with no significant past medical history presents to the ED of intermittent right pelvic pain x 2 weeks. Patient states her pain has progressively been getting worse, so she came in for further evaluation. She reports dysuria and possible hematuria. She denies any vaginal bleeding, fever, chills or any other associated symptoms. No known allergies. Patient follows Dr. Gant. Related Data Previous Rx's ?Medication ?Instructions ?Recorded hydrocodone 5 mg-acetaminophen 325 1 tab PO BID PRN pain #6 tabs 04/25/24 mg tablet loperamide 2 mg capsule (Imodium 2 mg PO Q6H PRN loose stool #14 06/01/24 A-D) caps ondansetron 4 mg disintegrating 4 mg PO Q8H #14 tabs 06/01/24 tablet cephalexin 500 mg capsule 500 mg PO TID #15 caps 06/09/24 Allergies Allergy/AdvReac Type Severity Reaction Status Date / Time No Known Allergies Allergy Verified 06/12/24 09:51 Review of Systems Review of Systems Systems Reviewed: All systems reviewed, normal except as documented Past Medical History Past Medical History NEUROLOGIC: Positive Migraine; Negative Neurological Disorders, Cerebrovascular Accident, Transient Ischemic Attacks (TIA), Dementia, Alzheimer's Disease, Parkinson's Disease, Brain Tumor, Meningitis, Seizures, Epilepsy, Multiple Sclerosis, Cerebral Palsy, Amyotrophic Lateral Sclerosis (ALS/Monse Gehrig's), Guillain-[place] Syndrome, Spina Bifida, Paralysis, Peripheral Neuropathy, Stein's Palsy, Subdural Hematoma, Head Trauma, Spinal Cord Injury or Traumatic Brain Injury CARDIAC: Positive Cardiac Arrhythmia and Heart Murmur; Negative Cardiac Disorders, Myocardial Infarction, Atrial Fibrillation, Angina, Coronary Artery Disease, Atherosclerotic Heart Disease, Peripheral Vascular Disease, Hypercholesterolemia, Aneurysm, Congestive Heart Failure, Congenital Heart Disease, Valvular Heart Disease, Rheumatic Fever, Cardiomyopathy, Edema, Pericarditis, Cellulitis, Deep Vein Thrombosis, Hypertension, Hypotension or Varicose Veins RESPIRATORY: Negative Chronic Obstructive Pulmonary Disease (COPD), Asthma, Bronchitis, Emphysema, Pneumonia, Pulmonary Fibrosis, Cystic Fibrosis, Tuberculosis, Pulmonary Embolism, Pulmonary Edema or Sleep Apnea GASTROINTESTINAL: Negative Gastrointestinal Disorders, Hepatitis, Cirrhosis, Pancreatitis, Celiac Disease, Gall Bladder Disease, Gastrointestinal Bleed, Esophageal Varices, Heath's Esophagus, Colitis, Ulcerative Colitis, Diverticulitis, Diverticulosis, Ulcer, Colorectal Cancer, Irritable Bowel, Crohn's Disease, Obstructive Bowel, Hiatal Hernia, Hemorrhoids, Gastroesophageal Reflux Disease or Obesity GENITOURINARY: Negative Genitourinary Disorders, Renal Disease, Kidney Stones, Polycystic Kidney Disease, Neurogenic Bladder, Inguinal Hernia, Dialysis, Prostate Cancer or Benign Prostatic Hyperplasia REPRODUCTIVE: Positive Gonorrhea, Previous Pregnancies and Syphilis; Negative Breast Cancer, Endometriosis, Genital Herpes, Pelvic Inflammatory Disease, Testicular Cancer or Uterine Prolapse MUSCULOSKELETAL: Negative Musculoskeletal Disorders, Muscular Dystrophy, Myasthenia Gravis, Marfan's Syndrome, Bone Cancer, Arthritis, Rheumatoid Arthritis, Osteoporosis, Degenerative Disk Disease, Gout, Scoliosis, Carpal Tunnel Syndrome, Fibromyalgia, Fractures, Degenerative Joint Disease, Osteomyelitis or Poliovirus ENT: Negative Cataracts, Glaucoma, Blind, Retinal Detachment, Macular Degeneration, Ear Infection, Deafness, Head Trauma or Eye Prosthesis ENDOCRINE: Negative Endocrine Disorders, Diabetes Mellitus Type 1, Diabetes Mellitus Type 2, Hypoglycemia, [place]'s Syndrome, Gino's Disease, Hyperthyroidism, Hypothyroidism, Parathyroid Disease, Pituitary Disease, Systemic Lupus Erythematosus, Syndrome of Inappropriate Antidiuretic Hormone (SIADH), Adrenal Disease or Graves' Disease HEMATOLOGIC: Positive Blood Disorders and Anemia; Negative Leukemia, Hemophilia, Thalassemia, Sickle Cell Disease or Clotting Problems PSYCHO/SOCIAL: Positive Bipolar Disorder and Depression; Negative Psychiatric Problems, Schizophrenia, Recreational Drug Use, Depression, Anxiety, Self-Mutilation, Attention Deficit Disorder, Attention Deficit Hyperactivity Disorder, Post Traumatic Stress Disorder or Eating Disorder OTHER HISTORY: Positive Hospitalization and Blood Transfusions; Negative Autoimmune Disease, Down Syndrome, Autism, Developmental Delay, Shingles, Falls, Blood Transfusion Reaction, Anesthesia Reactions, Organ Whitehead splant, Chemotherapy, Radiation Therapy, Hyperbaric Therapy, MRSA, VRSA, Vancomycin-Resistant Enterococci, Human Immunodeficiency Virus (HIV), Chicken Pox, Measles, Mumps, Rubella ([place] Measles), Pertussis, Clostridium Difficile, Cancer, Breast Cancer, Cervical Cancer, Colorectal Cancer, Lung Cancer, Ovarian Cancer, Prostate Cancer or Testicular Cancer Family History FAMILY HISTORY: Positive Family Respiratory Disorders and Family Cancer; Negative Family Psychiatric Problems, Family Cardiac Disorders, Family Gastrointestinal Problems, Family Surgery or Family Anesthesia Reaction Surgical History SURGICAL: Positive Mastectomy; Negative Cardiac Surgery, Open Heart Surgery, Coronary Artery Bypass Graft, Valve Replacement, Vascular Surgery, Coronary Stent, Cardiac Catheterization, Pacemaker, Angiogram, Auto Implanted Cardiovert Defib, Carotid Endarterectomy, Endocrine Surgery, Thyroidectomy, Ear Surgery, Tympanostomy Tube, Eye Surgery, Nose Surgery, Oral Surgery, Tonsillectomy, Adenoidectomy, Cochlear Implant, Corneal Transplant, Throat Surgery, Abdominal Surgery, Tracheostomy, Gastric Bypass Surgery, Gastrostomy, Bowel Surgery, Nephrectomy, Transurethral Resection, Joint Replacement, Amputation, Open Reduction Internal Fixation, Arthroscopy, Neurologic Surgery, Brain Shunt, Lumpectomy, Hysterectomy, Tubal Ligation, Section, Vasectomy or Organ Transplant Social History SMOKING STATUS: Never smoker SECOND HAND EXPOSURE: No SUBSTANCE USE: does not use ED Exam General Limitations: Present no limitations General appearance: Present alert and in no apparent distress Head Head exam: Present atraumatic Eye Eye exam: Present normal appearance, PERRL and EOMI ENT ENT exam: Present normal exam, normal oropharynx and mucous membranes moist Neck Neck exam: Present normal inspection, full ROM and trachea midline Chest Chest inspection: Present normal inspection and symmetric chest wall rise Respiratory Respiratory exam: Present normal lung sounds bilaterally Cardiovascular Cardiovascular exam: Present regular rate, normal rhythm and normal heart sounds Abdominal Exam Abdominal exam: Present soft and normal bowel sounds Extremities Exam Extremities exam: Present normal inspection and full ROM Back Exam Back exam: Present normal inspection and full ROM Neurological Exam Neurological exam: Present alert, oriented X3 and CN II-XII intact Psychiatric Psychiatric exam: Present normal affect and normal mood Skin Skin exam: Present warm, dry, intact and normal color Course Quality Measures none Orders Category Date Time Status US OB transvaginal Stat Exams 06/18/24 22:00 Completed Beta HCG,Quantitative Stat Lab 06/18/24 22:51 Completed CBC Stat Lab 06/18/24 22:51 Completed CMP [Comprehensive Metabolic Panel] Stat Lab 06/18/24 22:51 Completed Urinalysis, C/S if Indicated Stat Lab 06/18/24 22:45 Completed Vital Signs Vital signs: Vital Signs Temperature 98.5 F 06/18/24 21:46 Pulse Rate 86 06/18/24 21:46 Respiratory Rate 18 06/18/24 21:46 Blood Pressure 129/83 06/18/24 21:46 Pulse Oximetry (%) 99 06/18/24 21:46 Oxygen Delivery Method Room Air 06/18/24 21:46 Pulse ox is 99% on room air, which is normal according to my interpretation. Abdominal Pain MDM Patient data External records reviewed:: [facility] previous records (Per chart review, patient was seen here on 06/12/24 for pelvic pain) Clinical information provided by:: patient Social determinants that could affect healthcare access:: none Patient has the following chronic illnesses:: none How is presenting disease/condition affected by chronic disease/condition?: no chronic disease Evaluation data The following diagnostics were reviewed and interpreted by me:: lab results and radiology exam(s) Lab and/or radiology exams considered but not ordered:: none Interpretation Summary: CBC is normal, CMP is normal, Beta HCG is 8592, UA shows 8 RBCs, according to my interpretation. ----- I have personally reviewed the radiology data and agree with the radiologist's interpretation below: [place] [facility] Report Signed Patient: XANDER VITALE [facility] Record#: [id number] Birthdate: 1995 Age/Sex: 29 / F Location: [facility] Attending Dr: Ordering Physician: Cesar Shea PA-C Date of Service: 06/18/24 Procedure(s): US OB transvaginal Accession Number(s): [id number] cc: Ronnie Rodriguez MD; Cesar Shea PA-C~ Examination: OB Transvaginal ultrasound of the pelvis, complete Technique: Transvaginal sonographic images pelvis performed using gusman scale imaging Exam date and time: June 18, 2024 1008 hrs. Indications: Pelvic sonogram June 12, 2024 no intrauterine gestation, right ectopic pelvic pain this week Findings: Uterus 8.1 x 5.6 x 6.2 cm Intrauterine gestational sac 1.0 cm corresponds to 5 weeks 5 day gestational age No pole no cardiac activity Subchorionic hemorrhage 11 x 24 mm Right ovary 2.6 x 1.9 x 2.6 cm arterial flow 18.6 x 8 mm cyst increased vascularity around the right ovary but no solid mass on this study Left ovary obscured by bowel gas Impression: On this study intrauterine gestational sac corresponding to 5 weeks 5 day gestational age No pole, no cardiac activity Right adnexal mass is not depicted on this examination Short-term continued follow-up transvaginal pelvic sonography strongly recommended Dictated By: Ronnie Rodriguez MD Signed By: <Electronically signed by Ronnie Rodriguez MD in OV> Medications / Prescriptions Medications or Prescriptions considered but not ordered:: none Medication administrations:: Medication Administration History Acetaminophen (Acetaminophen 325 Mg Tablet) 650 mg PO Q6H PRN PRN Reason: Fever >101.5 Stop: 07/19/24 01:05 Acetaminophen (Acetaminophen 325 Mg Tablet) 650 mg PO Q6H PRN PRN Reason: PAIN SCALE 1-3 (mild Stop: 07/19/24 01:05 Last Admin: 06/19/24 01:49 Dose: 650 mg Documented By: ADRIEL Hydrocodone Bitart/Acetaminophen (Hydrocodone/Apap 5/325 Tablet) 1 tab PO Q6HR PRN PRN Reason: PAIN Stop: 06/24/24 19:07 Last Admin: 06/19/24 19:25 Dose: 1 tab Documented By: NILTON Azithromycin (Azithromycin 250 Mg Tablet) 500 mg PO QDAY LUIS EDUARDO Stop: 06/27/24 08:59 Hydroxyzine HCl (Hydroxyzine Hcl 25 Mg Tablet) 25 mg PO TID PRN PRN Reason: ANXIETY Stop: 07/19/24 13:59 Ceftriaxone Sodium 2 gm/ (Sodium Chloride) 50 mls @ 100 mls/hr IV Q12HR LUIS EDUARDO Stop: 06/26/24 08:59 Ondansetron HCl (Ondansetron Inj 2 Mg/Ml Inj 2 Ml) 4 mg IV Q6H PRN PRN Reason: NAUSEA OR VOMITING Stop: 07/19/24 01:05 Last Admin: 06/19/24 01:46 Dose: 4 mg Documented By: ADRIEL Discontinued Medications Azithromycin (Azithromycin 250 Mg Tablet) 1,000 mg PO X1 ONE Stop: 06/19/24 01:19 Last Admin: 06/19/24 01:49 Dose: 1,000 mg Documented By: ADRIEL Potassium Chloride/Dextrose/Sod Cl (Kcl 20 Meq/L In D5-1/2ns) 20 meq in 1,000 mls @ 100 mls/hr IV .Q10H LUIS EDUARDO Stop: 07/19/24 01:14 Last Admin: 06/19/24 01:47 Dose: 100 mls/hr Documented By: ADRIEL Ceftriaxone Sodium 2 gm/ (Sodium Chloride) 50 mls @ 100 mls/hr IV Q12HR LUIS EDUARDO Stop: 06/26/24 08:59 Last Admin: 06/19/24 09:04 Dose: 100 mls/hr Documented By: JACOB Ceftriaxone Sodium 2 gm/ (Sodium Chloride) 50 mls @ 100 mls/hr IV X1 ONE Stop: 06/19/24 01:59 Last Admin: 06/19/24 01:46 Dose: 100 mls/hr Documented By: ADRIEL Azithromycin 500 mg/ Sodium (Chloride) 250 mls @ 250 mls/hr IV QDAY LUIS EDUARDO Stop: 06/26/24 10:01 Last Admin: 06/19/24 10:26 Dose: Not Given Documented By: JACOB Non-Admin Reason: Discontinued Lorazepam (Lorazepam 0.5 Mg Tablet) 1 mg PO X1 ONE Stop: 06/19/24 02:51 Last Admin: 06/19/24 02:59 Dose: 1 mg Documented By: NILTON see above, if any Consultations Consultation(s) initiated? (list below): Yes Consultation #1 (Physician, Specialty, Details): Discussed case with [Dr. Gant] from [[facility]] regarding [consultation]. Discussed patients ED course, exam findings, labs, and radiology results. States to admit the patient. Diagnosis Differential diagnosis abdominal pain: abdominal pain, calculus of kidney, constipation and other (Ectopic , failing , UTI, pyelonephritis, atypical presentation of acute appendicitis however this is unlikely since her pain has been going on for over 1 month. Heterotopic ) Most likely diagnosis given after review of the tests above:: see below Admission Indicated Admission indicated?: indicated Admission Request Was there a request for admission?: Yes Admission Attestation Admission request attestation: Discussed case with [] from Hospitalist service regarding admission. Discussed patients ED course, exam findings, labs, and radiology results. The Hospitalist [agrees,declines] to accept the patient for admission. Disposition Plan Disposition Plan: Admit Discharge Plan Plan Patient Disposition: Admit Acute Care w/in Hospital Patient condition on transfer: Stable Problem List Clinical Impression: Pelvic pain, Empty gestational sac with ongoing
[2024-06-19] MEDS: ONDANSETRON INJ 2 MG/ML INJ 2 ML 4 MG IV (01:46)
[2024-06-19] MEDS: cefTRIAXone 2 GM in SODIUM CHLORIDE 0.9% (P) 50 ML IV ×3 (01:46→21:06)
[2024-06-19] MEDS: KCL 20 mEq/L in D5-1/2NS 20 MEQ/1,000 ML BAG 100 MEQ IV (01:47)
[2024-06-19] MEDS: AZITHROMYCIN 250 MG TABLET 1000 MG PO (01:49)
[2024-06-19] MEDS: ACETAMINOPHEN 325 MG TABLET 650 MG PO (01:49)
[2024-06-19] MEDS: LORazepam 0.5 MG TABLET 1 MG PO (02:59)
--- NOTE | 2024-06-19 06:39 | PD.GYNHP ---
Documentation for date of: 06/19/24 [employer] - HPI History of Present Illness History of present illness: The patient is a 29-year-old female at approximately 4 weeks and 6 days gestation from her LMP, presenting to the emergency room for the fifth time in the last 2 weeks with a chief complaint of dull lower abdominal/pelvic pain. She denies any vaginal bleeding. The patient has a history of vaginal delivery in 2022, incarceration, and positive syphilis testing, which was completely treated during her previous . She has undergone multiple ultrasounds due to initial suspicion of ectopic . Subsequent ultrasounds have shown an intrauterine gestational sac without any evidence of ectopic , but a subchorionic hemorrhage was noted. Her serum HCG levels were 184 on 06-08-2024, 911 on 06-12-2024, and 8,592 on 06-18-2024, showing an appropriate rise for intrauterine . The patient's review of systems is negative except for the findings documented above. She appears anxious but does not exhibit any definite neurologic deficit.The patient is a 29-year-old female at approximately 4 weeks and 6 days gestation from her LMP, presenting to the emergency room for the fifth time in the last 2 weeks with a chief complaint of dull lower abdominal/pelvic pain. She denies any vaginal bleeding. The patient has a history of vaginal delivery in 2022, incarceration, and positive syphilis testing, which was completely treated during her previous . She has undergone multiple ultrasounds due to initial suspicion of ectopic . Subsequent ultrasounds have shown an intrauterine gestational sac without any evidence of ectopic , but a subchorionic hemorrhage was noted. Her serum HCG levels were 184 on 06-08-2024, 911 on 06-12-2024, and 8,592 on 06-18-2024, showing an appropriate rise for intrauterine . The patient's review of systems is negative except for the findings documented above. She appears anxious but does not exhibit any definite neurologic deficit. Diagnostic Test Results and Labs: - Serum HCG Levels: 06-08-2024: 184 06-12-2024: 911 06-18-2024: 8,592 - Transvaginal Ultrasound (06-12-2024): Uterus measuring 9.8 x 5.3 x 6.1 cm, tiny cystic area 0.3 cm consistent with early intrauterine gestation of 5 days, no pole or cardiac activity. Right ovary 3.8 x 2.9 x 2.5 cm with a 1.1 cm questionable gestational sac, no pole. Left ovary 3.3 x 1.6 x 1.8 cm. - Transvaginal Ultrasound (06-18-2024): Uterus measuring 8.1 x 5.6 x 6.2 cm, intrauterine gestational sac of 1 cm corresponding to 5 weeks and 5 days, no pole or cardiac activity, subchorionic hemorrhage of 11 x 24 mm. Right ovary 2.6 x 1.9 x 2.6 cm with arterial flow, 18.6 mm cyst with increased vascularity, no solid mass. Review of Systems Review of Systems Systems Reviewed: All systems reviewed, normal except as documented Meds Home Medications and Allergies Allergies Allergy/AdvReac Type Severity Reaction Status Date / Time No Known Allergies Allergy Verified 06/12/24 09:51 Exam - DOLL [employer] ROOTED HAIR Vital Signs Temp Pulse Resp BP Pulse Ox O2 Del Method 98.0 F 70 18 114/62 99 Room Air 06/19/24 03:44 06/19/24 03:44 06/19/24 03:44 06/19/24 03:44 06/19/24 03:44 06/19/24 03:44 Narrative Exam Physical Examination: - General: Alert, oriented x3 - Chest/Lungs: Clear to auscultation bilaterally - Abdomen: Soft, mild tenderness to palpation in the suprapubic area, no significant left or right adnexal tenderness - Vaginal Exam: Deferred by patient - Extremities: Within normal limits - Neurologic: Signs of anxiety, no definite neurologic deficits DO[employer] HAIR - Results Labs 06/18/24 22:51 06/18/24 22:51 Labs: Short CBC 06/18/24 Range/Units 22:51 WBC 10.8 (3.6-11.0) Thou/mm3 Hgb 11.7 L (12.0-16.0) g/dL Hct 35.2 L (36.0-46.0) % Plt Count 305 (140-440) Thou/mm3 BMP 06/18/24 22:51 Sodium 138 Potassium 4.0 Chloride 107 Carbon Dioxide 25.0 BUN 12 Creatinine 0.7 Glucose 92 Calcium 9.7 Liver Function 06/18/24 Range/Units 22:51 Total Bilirubin 0.3 (0.3-1.2) mg/dL AST 18 (0-34) U/L ALT 13 (10-49) U/L Alkaline Phosphatase 74 (46-116) U/L Albumin 4.7 (3.5-5.0) gm/dL Urine 06/18/24 Range/Units 22:45 Urine Color Lt-Yellow (Lt Yel-Yel) Urine Clarity Clear (Clear/Hazy) Urine pH 6.5 (5.0-7.0) Ur Specific [place] 1.025 (1.001-1.035) Urine Protein Negative (Neg - Trace) Urine Glucose (UA) Negative (Negative) Assessment and Plan Assessment and plan (1) of unknown anatomic location: Status: Acute Assessment and plan: Early with Lower Abdominal Pain: - 29-year-old at approximately 4 weeks 6 days from LMP. - Appropriate rise of HCG trends with intrauterine gestational sac. - Serial ultrasounds showed shrinking cystic structure in right ovary, ectopic unlikely. - HCG values over discriminatory zone without pole or heart tones. - Subchorionic hemorrhage measuring 11 by 24 millimeters noted. - Continue monitoring HCG trends before deciding on failed or blighted ovum. - Place patient on observation for signs of worsening pain. History of Syphilis/STDs and Possible PID: - Presumptively treat for PID due to history of syphilis/STDs. - Administer ceftriaxone and azithromycin. - Monitor for few hours with possible daytime discharge. Anxiety: - Shows signs of anxiety without definite neurologic deficit. - Provide reassurance and education on current condition and management plan. - Consider mental health referral if anxiety persists or worsens. Quality Measures Quality Measures none
[2024-06-19 06:59] LABS: Alanine Aminotransferase 15 U/L (10-49); Albumin, Serum 4.5 gm/dL (3.5-5.0); Albumin/Globulin Ratio 1.7 (1.2-2.2); Alkaline Phosphatase 73 U/L (46-116); Anion Gap 11 (7-16); Aspartate Amino Transferase 12 U/L (0-34); BUN/Creatinine Ratio 14 Ratio (12-20); Bilirubin,Total 0.3 mg/dL (0.3-1.2); Blood Urea Nitrogen 10 mg/dL (9-23); Calcium 9.2 mg/dL (8.3-10.6); Calcium (Corrected) 9.2 mg/dL (8.5-10.1); Carbon Dioxide 21.2 mMol/L (20.0-31.0); Chloride 105 mMol/L (98-107); Creatinine (Component) 0.7 mg/dL (0.6-1.3); Estimated Creatinine Clearance 119.6 mL/min (>60); Globulin 2.7 gm/dL (2.3-3.5); Glucose 95 mg/dL (74-106); Osmolality,Calculated 272 (275-295); Potassium 3.8 mMol/L (3.4-5.1); Sodium 137 mMol/L (136-145); Total Protein 7.2 gm/dL (5.7-8.2); eGFR > 60 See Note
--- NOTE | 2024-06-19 07:59 | PD.GYNPROG ---
Documentation for date of: 06/19/24 VASCULAR NEUROLOGIST Subjective Subjective Interval history: The patient is a 29-year-old female at approximately 4 weeks and 6 days gestation from her LMP, presenting to the emergency room for the fifth time in the last 2 weeks with a chief complaint of dull lower abdominal/pelvic pain. She denies any vaginal bleeding. The patient has a history of vaginal delivery in 2022, incarceration, and positive syphilis testing, which was completely treated during her previous . She has undergone multiple ultrasounds due to initial suspicion of ectopic . Subsequent ultrasounds have shown an intrauterine gestational sac without any evidence of ectopic , but a subchorionic hemorrhage was noted. Her serum HCG levels were 184 on 06-08-2024, 911 on 06-12-2024, and 8,592 on 06-18-2024, showing an appropriate rise for intrauterine . The patient's review of systems is negative except for the findings documented above. She appears anxious but does not exhibit any definite neurologic deficit.The patient is a 29-year-old female at approximately 4 weeks and 6 days gestation from her LMP, presenting to the emergency room for the fifth time in the last 2 weeks with a chief complaint of dull lower abdominal/pelvic pain. She denies any vaginal bleeding. The patient has a history of vaginal delivery in 2022, incarceration, and positive syphilis testing, which was completely treated during her previous . She has undergone multiple ultrasounds due to initial suspicion of ectopic . Subsequent ultrasounds have shown an intrauterine gestational sac without any evidence of ectopic , but a subchorionic hemorrhage was noted. Her serum HCG levels were 184 on 06-08-2024, 911 on 06-12-2024, and 8,592 on 06-18-2024, showing an appropriate rise for intrauterine . The patient's review of systems is negative except for the findings documented above. She appears anxious but does not exhibit any definite neurologic deficit. Diagnostic Test Results and Labs: - Serum HCG Levels: 06-08-2024: 184 06-12-2024: 911 06-18-2024: 8,592 - Transvaginal Ultrasound (06-12-2024): Uterus measuring 9.8 x 5.3 x 6.1 cm, tiny cystic area 0.3 cm consistent with early intrauterine gestation of 5 days, no pole or cardiac activity. Right ovary 3.8 x 2.9 x 2.5 cm with a 1.1 cm questionable gestational sac, no pole. Left ovary 3.3 x 1.6 x 1.8 cm. - Transvaginal Ultrasound (06-18-2024): Uterus measuring 8.1 x 5.6 x 6.2 cm, intrauterine gestational sac of 1 cm corresponding to 5 weeks and 5 days, no pole or cardiac activity, subchorionic hemorrhage of 11 x 24 mm. Right ovary 2.6 x 1.9 x 2.6 cm with arterial flow, 18.6 mm cyst with increased vascularity, no solid mass. Exam Vital Signs Temp Pulse Resp BP Pulse Ox O2 Del Method 97.5 F 70 17 115/65 96 Room Air 06/19/24 07:47 06/19/24 07:47 06/19/24 07:47 06/19/24 07:47 06/19/24 07:47 06/19/24 07:47 Narrative Exam Patient continues to have midline pelvic pain that is rated 5 out of 10. She denies any nausea or vomiting. She denies any diarrhea. She denies any vaginal bleeding. She reports no significant improvement on antibiotics. She denies any flank pain Routine Respiratory Exam Comments: Clear to auscultation bilaterally Routine Cardiovascular Exam Comments: Regular rate and rhythm Routine Abdominal Exam Comments: Mild suprapubic and bilateral lower quadrant tenderness, no guarding, no rebound, no rigidity. Urinary Catheter Management Cath placed during this visit: no VASCULAR NEUROLOGIST - PN: Obj Data Labs 06/18/24 22:51 06/19/24 05:15 Labs: Laboratory Results - last 24 hr 06/18/24 06/18/24 06/19/24 22:45 22:51 05:15 WBC 10.8 RBC 4.27 Hgb 11.7 L Hct 35.2 L MCV 82 MCH 27.4 MCHC 33.2 RDW Std Deviation 46.1 Plt Count 305 Neut % (Auto) 66 Lymph % (Auto) 22 Amite % (Auto) 6 Eos % (Auto) 4 Baso % (Auto) 2 Neut # (Auto) 7.1 Lymph # (Auto) 2.4 [place] # (Auto) 0.7 Eos # (Auto) 0.4 Baso # (Auto) 0.2 Immature Gran # (Auto) 0.03 H Absolute Nucleated RBC 0.00 Immature Gran % 0 Nucleated RBC % 0 Sodium 138 137 Potassium 4.0 3.8 Chloride 107 105 Carbon Dioxide 25.0 21.2 Anion Gap 6 L 11 BUN 12 10 Creatinine 0.7 0.7 Estim Creat Clear Calc 118.6 119.6 eGFR > 60 > 60 BUN/Creatinine Ratio 17 14 Glucose 92 95 Calculated Osmolality 275 272 L Calcium 9.7 9.2 Corrected Calcium 9.7 9.2 Total Bilirubin 0.3 0.3 AST 18 12 ALT 13 15 Alkaline Phosphatase 74 73 Total Protein 7.8 7.2 Albumin 4.7 4.5 Globulin 3.1 2.7 Albumin/Globulin Ratio 1.5 1.7 Beta HCG, Quant 8592 Ur Collection Type Clean Catch Urine Color Lt-Yellow Urine Clarity Clear Urine pH 6.5 Ur Specific Friedens 1.025 Urine Protein Negative Urine Glucose (UA) Negative Urine Ketones Negative Urine Blood Negative Urine Nitrite Negative Urine Bilirubin Negative Urine Urobilinogen (Auto) Negative Ur Leukocyte Esterase Negative Urine RBC 8 H Urine WBC 2 Ur Squamous Epith Cells 3 Urine Bacteria None Ur Culture Indicated? Not Indicated Impressions Impression: Intrauterine gestational sac without pole, yolk sac or cardiac activity consistent with the patient's gestational age by last menstrual period with a rising hCG consistent with a viable in the uterus. Pelvic pain that may be due to pelvic inflammatory disease and pain is persistent with multiple ER visits over the past week therefore we will continue her on IV antibiotics in an inpatient setting Unlikely to have a second combined that is ectopic however due to her ongoing pelvic pain we will monitor closely and this requires continued inpatient observation. Psychosocial issues may play a role in her pain as well as substance use withdrawal. Plan: CBC in am Continue IV antibiotics Pain medication as needed for pain relief Urine drug screen Social Service Consult VASCULAR NEUROLOGIST - A/P Assessment and plan (1) of unknown anatomic location: Status: Acute Time Spent With Patient Time: Total time spent is greater than 50% in coordination of care (as documented) at patient's floor/unit and/or counseling patient: Time with patient: 25 - 35 minutes
[2024-06-19 09:19] LABS: Amphetamine/Methamp Scrn,U Negative (Negative); Barbiturate Screen,Urine Negative (Negative); Benzodiazepines Screen,Urine Negative (Negative); Benzoylecgonine Screen, Ur Negative (Negative); Fentanyl Screen,Urine Negative (Negative); Opiate Screen,Urine Negative (Negative); THC Screen,Urine Negative (Negative)
--- NOTE | 2024-06-19 11:25 | PC.SS ---
Patient Lo Rodrigues is a 29 Year old female admitted for of Unknown Location. Patient lives at home with family. Patient's medical decision maker is her mother, Sari Traore [phone]. Patient is able to ambulate independently. PCP is Juan Luis Amaral. Choice of pharmacy is [facility]. At time of discharge patient will return home. Next of kin: MotherSari Discharge Plan: Home
--- NOTE | 2024-06-19 19:20 | PC.NURSE ---
Gr. Mcbride was made aware about pt's BP of 104/73, HR 69. Okay to give norco 5/[address] Mcbride. was also made aware about pt's complain of R kidney pain. New orders for pt. See new orders.
[2024-06-19] MEDS: HYDROcodone/APAP 5/325 TABLET 1 TAB PO (19:25)
--- NOTE | 2024-06-19 19:38 | XR_ITS ---
Examination: Retroperitoneal ultrasound, complete Technique: Multiple high resolution grayscale images of the retroperitoneum obtained, including kidneys and bladder. Exam date and time:June 20, 2024 at 0026 hrs. Indications: Bilateral flank pain beginning one month ago Findings: Right kidney 11.0 x 4.1 x 5.3 cm renal cortex 1.0 cm Left kidney 10.1 x 3.6 x 5.6 cm renal cortex 1.2 cm Mild bilateral renal parenchymal scar formation No hydronephrosis or renal calculi No bladder mass or bladder calculi Bladder prevoid volume 10 9 cc unable to void Incidental note cholelithiasis Incidental note intrauterine gestational sac 1.10 cm corresponding to 5 weeks 6 days gestational age No pole or cardiac activity demonstrated Impression: Mild bilateral renal parenchymal scar impression No hydronephrosis
[2024-06-19 19:59] LABS: Basophils # (Auto) 0.2 Thou/mm3 (0.0-0.2); Basophils % (Auto) 1 % (0-2.5); Eosinophils # (Auto) 0.3 Thou/mm3 (0.0-0.5); Eosinophils % (Auto) 3 % (0-10); Hematocrit 35.8 % (36.0-46.0); Hemoglobin 11.7 g/dL (12.0-16.0); Immature Granulocytes % (Auto) 0 % (0-0); Immature Granulocytes Auto 0.03 Thou/mm3 (0.00-0.00); Lymphocytes # (Auto) 1.9 Thou/mm3 (1.0-4.8); Lymphocytes % (Auto) 19 % (10-50); Mean Corpuscular HGB Conc 32.7 g/dl (31.0-37.0); Mean Corpuscular Hemoglobin 27.5 pg (25.0-35.0); Mean Corpuscular Volume 84 fL (80-100); Monocytes # (Auto) 0.6 Thou/mm3 (0.0-0.8); Monocytes % (Auto) 6 % (0-12); Neutrophils # (Auto) 7.4 Thou/mm3 (1.8-7.7); Neutrophils % (Auto) 71 % (37-80); Nucleated Red Blood Cell % 0 /100 WBC (0); Platelet Count 320 Thou/mm3 (140-440); RDW Standard Deviation 47.1 fL (36.4-46.3); Red Blood Count 4.25 Miln/mm3 (4.00-5.20); White Blood Count 10.4 Thou/mm3 (3.6-11.0)
[2024-06-19 20:13] LABS: Bilirubin,Urine Negative (Negative); Blood,Urine Negative (Negative); Clarity,Urine Clear (Clear/Hazy); Color,Urine Lt-Yellow (Lt Yel-Yel); Glucose, Urine Negative (Negative); Ketones,Urine Negative (Negative); Leukocyte Esterase,Urine Positive (Negative); Nitrite,Urine Negative (Negative); Protein,Urine Negative (Neg - Trace); Specific Gravity,Urine 1.018 (1.001-1.035); Urobilinogen,Urine Negative mg/dL (0.0-1.0)
[2024-06-20] VITALS: BP 108/62; PULSE 78; RESP 17; TEMP 36.1; O2SAT 97
[2024-06-20 04:00] VITALS: BP 95/55; PULSE 84; RESP 18; TEMP 36.2; O2SAT 98
[2024-06-20 06:16] LABS: Basophils # (Auto) 0.2 Thou/mm3 (0.0-0.2); Basophils % (Auto) 2 % (0-2.5); Eosinophils # (Auto) 0.4 Thou/mm3 (0.0-0.5); Eosinophils % (Auto) 4 % (0-10); Hematocrit 35.6 % (36.0-46.0); Hemoglobin 11.9 g/dL (12.0-16.0); Immature Granulocytes % (Auto) 0 % (0-0); Immature Granulocytes Auto 0.02 Thou/mm3 (0.00-0.00); Lymphocytes # (Auto) 2.6 Thou/mm3 (1.0-4.8); Lymphocytes % (Auto) 27 % (10-50); Mean Corpuscular HGB Conc 33.4 g/dl (31.0-37.0); Mean Corpuscular Hemoglobin 27.9 pg (25.0-35.0); Mean Corpuscular Volume 84 fL (80-100); Monocytes # (Auto) 0.7 Thou/mm3 (0.0-0.8); Monocytes % (Auto) 7 % (0-12); Neutrophils # (Auto) 5.7 Thou/mm3 (1.8-7.7); Neutrophils % (Auto) 60 % (37-80); Nucleated Red Blood Cell % 0 /100 WBC (0); Platelet Count 282 Thou/mm3 (140-440); Red Blood Count 4.26 Miln/mm3 (4.00-5.20); White Blood Count 9.6 Thou/mm3 (3.6-11.0)
[2024-06-20 06:54] LABS: Alanine Aminotransferase 11 U/L (10-49); Albumin, Serum 4.6 gm/dL (3.5-5.0); Albumin/Globulin Ratio 1.6 (1.2-2.2); Alkaline Phosphatase 73 U/L (46-116); Anion Gap 8 (7-16); Aspartate Amino Transferase 11 U/L (0-34); BUN/Creatinine Ratio 10 Ratio (12-20); Bilirubin,Total 0.7 mg/dL (0.3-1.2); Blood Urea Nitrogen 8 mg/dL (9-23); Calcium 9.3 mg/dL (8.3-10.6); Calcium (Corrected) 9.3 mg/dL (8.5-10.1); Carbon Dioxide 23.8 mMol/L (20.0-31.0); Chloride 105 mMol/L (98-107); Creatinine (Component) 0.8 mg/dL (0.6-1.3); Estimated Creatinine Clearance 104.7 mL/min (>60); Globulin 2.9 gm/dL (2.3-3.5); Glucose 90 mg/dL (74-106); Osmolality,Calculated 272 (275-295); Potassium 3.5 mMol/L (3.4-5.1); Sodium 137 mMol/L (136-145); Total Protein 7.5 gm/dL (5.7-8.2); eGFR > 60 See Note
[2024-06-20 06:57] LABS: Beta HCG,Quantitative 12467 mIU/mL (<5.0)
[2024-06-20 07:52] VITALS: BP 122/61; PULSE 75; RESP 16; TEMP 36.6; O2SAT 98
--- NOTE | 2024-06-20 09:18 | ESDS_ITS ---
Planned Discharge Date 06/20/24 DS: Providers Provider Date of admission: 06/19/24 01:06 Primary care physician: Physician No Primary/Family Admitting Provider: Juan Gant MD Attending Provider on Admission: Ash Mcbride MD Attending Provider on DC: Ash Mcbride MD Discharging Provider: Ash Mcbride MD DS: Diagnosis Discharge Diagnosis (1) Empty gestational sac with ongoing : Status: Acute Assessment & Plan: HCG level at [facility] tomorrow Follow up with Dr Gant . (2) Right flank pain: Status: Acute Assessment & Plan: Tylenol and [place] prn pain (3) Pelvic pain: Status: Acute Assessment & Plan: Resolved. Problem List Completed Was Problem List Reviewed/Reconciled?: Yes Hospital Course Hospital Course Hospital course: The patient is a 29-year-old female at approximately 4 weeks and 6 days gestation from her LMP, presenting to the emergency room for the fifth time in the last 2 weeks with a chief complaint of dull lower abdominal/pelvic pain. She denies any vaginal bleeding. The patient has a history of vaginal delivery in 2022, incarceration, and positive syphilis testing, which was completely treated during her previous . She has undergone multiple ultrasounds due to initial suspicion of ectopic . Subsequent ultrasounds have shown an intrauterine gestational sac without any evidence of ectopic , but a subchorionic hemorrhage was noted. Her serum HCG levels were 184 on 06-08-2024, 911 on 06-12-2024, and 8,592 on 06-18-2024, showing an appropriate rise for intrauterine . The patient's review of systems is negative except for the findings documented above. She appears anxious but does not exhibit any definite neurologic deficit.The patient is a 29-year-old female at approximately 4 weeks and 6 days gestation from her LMP, presenting to the emergency room for the fifth time in the last 2 weeks with a chief complaint of dull lower abdominal/pelvic pain. She denies any vaginal bleeding. The patient has a history of vaginal delivery in 2022, incarceration, and positive syphilis testing, which was completely treated during her previous . She has undergone multiple ultrasounds due to initial suspicion of ectopic . Subsequent ultrasounds have shown an intrauterine gestational sac without any evidence of ectopic , but a subchorionic hemorrhage was noted. Her serum HCG levels were 184 on 06-08-2024, 911 on 06-12-2024, and 8,592 on 06-18-2024, showing an appropriate rise for intrauterine . The patient's review of systems is negative except for the findings documented above. She appears anxious but does not exhibit any definite neurologic deficit. Diagnostic Test Results and Labs: - Serum HCG Levels: 06-08-2024: 184 06-12-2024: 911 06-18-2024: 8,592 - Transvaginal Ultrasound (06-12-2024): Uterus measuring 9.8 x 5.3 x 6.1 cm, tiny cystic area 0.3 cm consistent with early intrauterine gestation of 5 days, no pole or cardiac activity. Right ovary 3.8 x 2.9 x 2.5 cm with a 1.1 cm questionable gestational sac, no pole. Left ovary 3.3 x 1.6 x 1.8 cm. - Transvaginal Ultrasound (06-18-2024): Uterus measuring 8.1 x 5.6 x 6.2 cm, intrauterine gestational sac of 1 cm corresponding to 5 weeks and 5 days, no pole or cardiac activity, subchorionic hemorrhage of 11 x 24 mm. Right ovary 2.6 x 1.9 x 2.6 cm with arterial flow, 18.6 mm cyst with increased vascularity, no solid mass. 06/19/2024: Developed right flank pain controlled with [place]. Pelvic pain resolved Retroperitoneal US was negative for stones. Intrauterine gestational sac seen 5w6d with no pole or yolk sac. Time Spent with Patient Time attestation: Total time spent providing and/or coordinating discharge services: Exam - [employer] WORKER Vital Signs Temp Pulse Resp BP Pulse Ox O2 Del Method 97.9 F 75 16 122/61 98 Room Air 06/20/24 07:52 06/20/24 07:52 06/20/24 07:52 06/20/24 07:52 06/20/24 07:52 06/20/24 07:52 Routine Respiratory Exam Comments: CTA B/L Routine Cardiovascular Exam Comments: RRR Routine Abdominal Exam Comments: Nontender, nondistended, no guarding, rebound or rigidity. Flank: No CVAT B/L Discharge Plan Plan Patient Disposition: HOME (Self Care) Patient condition on transfer: Stable Prescriptions/Referrals Prescriptions/Med Rec: Continued ondansetron 4 mg tablet,disintegrating 4 mg PO Q8H Qty: 14 0RF cephalexin 500 mg capsule 500 mg PO TID Qty: 15 0RF hydrocodone-acetaminophen 5-325 mg tablet 1 tab PO BID MDD 10 PRN (Reason: pain) Qty: 6 0RF Discontinued loperamide [Imodium A-D] 2 mg capsule 2 mg PO Q6H PRN (Reason: loose stool) Qty: 14 0RF Referrals: No Primary/Family,Physician [Primary Care Provider] - Patient/Caregiver Discharge Instructions Discharge Activity: activity as tolerated Other Discharge Activity Instructions:: Follow up [facility] Thursday 06/21 for HCG level and 06/[address] Gant. Print Language: Kuwaiti Stand Alone Forms: Sally Award Info., Patient Portal Info Letter, Work/Release Restrictions Discharge Order Discharge Orders: Discharge (Routine); Ordered 06/20/24 Ordered By: Ash Mcbride
== END 2024-06-20 10:30 | disposition home or self-care (01) ==
LOC: SERX 23:39 → SERHOLD 06-19 01:17 → S3NX 06-19 02:25
PROVIDERS: Physician Assistant; Admitting Provider Obstetrics & Gynecology; Emergency Provider Emergency Medicine; Visit Provider Specialist
DX: O36.80X0 Pregnancy with inconclusive fetal viability, not applicable or unspecified (principal); O34.81 Maternal care for other abnormalities of pelvic organs, first trimester; O26.891 Other specified pregnancy related conditions, first trimester; F41.9 Anxiety disorder, unspecified
CPT/HCPCS: 36415; 76770; 76817; 80053; 80307; 81001; 81003; 84702; 85025; 99285; G0378; J0696; J2405; J3480; J7050; A9270

== ENCOUNTER 2024-06-23 18:12 | Emergency (ER) | payer MEDICAID, SELFPAY ==
--- NOTE | 2024-06-23 18:33 | XR_ITS ---
Examination: Complete OB ultrasound, less than 14 weeks, transabdominal Date and time of exam: June 23, 2024 1904 hrs. Indications: Onset pelvic pain beginning today, early by history Technique: Obstetrical ultrasound images less than 14 weeks performed via transabdominal imaging Findings: A normal shaped single intrauterine gestation is present in the uterus. pole 0.4 cm correspondences 6 weeks 0 day gestational age Cardiac motion 113 BPM Adjacent subchorionic hemorrhage 12 x 6 x 14 mm Ultrasonographic survey of visible structures unremarkable. Amniotic fluid volume appears appropriate for this estimated gestational age. Right ovary 3.8 x 2.4 x 2.7 cm arterial flow Left ovary 3.5 x 2.4 x 2.4 cm arterial flow Fluid anterior cul-de-sac Impression: Viable intrauterine gestation 6 weeks 0 days Recommend short-term follow-up transvaginal pelvic sonography, given the patient's subchorionic hemorrhage.
[2024-06-23 18:34] VITALS: BP 114/66; PULSE 77; RESP 18; TEMP 36.6; O2SAT 99; BMI 27.9
[2024-06-23 18:45] LABS: Collection Type, Urine Clean Catch; RBC,Urine 0 /hpf (0-3)
[2024-06-23 19:10] LABS: Bilirubin,Urine Negative (Negative); Blood,Urine Negative (Negative); Clarity,Urine Turbid (Clear/Hazy); Color,Urine Lt-Yellow (Lt Yel-Yel); Culture Indicated,Urine Not Indicated; Glucose, Urine Negative (Negative); Ketones,Urine Negative (Negative); Leukocyte Esterase,Urine Positive (Negative); Nitrite,Urine Negative (Negative); PH,Urine 6.5 (5.0-7.0); Protein,Urine Trace (Neg - Trace); Specific Gravity,Urine 1.027 (1.001-1.035); Squamous Epithelial Cell,Urine 14 /hpf (0-5); Urobilinogen,Urine Negative mg/dL (0.0-1.0); WBC,Urine 7 /hpf (0-5)
[2024-06-23 19:10] LABS: Basophils # (Auto) 0.2 Thou/mm3 (0.0-0.2); Basophils % (Auto) 2 % (0-2.5); Eosinophils # (Auto) 0.4 Thou/mm3 (0.0-0.5); Eosinophils % (Auto) 4 % (0-10); Hemoglobin 11.5 g/dL (12.0-16.0); Immature Granulocytes % (Auto) 0 % (0-0); Immature Granulocytes Auto 0.02 Thou/mm3 (0.00-0.00); Lymphocytes # (Auto) 2.4 Thou/mm3 (1.0-4.8); Lymphocytes % (Auto) 25 % (10-50); Mean Corpuscular HGB Conc 32.9 g/dl (31.0-37.0); Mean Corpuscular Hemoglobin 27.3 pg (25.0-35.0); Mean Corpuscular Volume 83 fL (80-100); Monocytes # (Auto) 0.7 Thou/mm3 (0.0-0.8); Monocytes % (Auto) 7 % (0-12); Neutrophils # (Auto) 6.1 Thou/mm3 (1.8-7.7); Neutrophils % (Auto) 62 % (37-80); Nucleated Red Blood Cell % 0 /100 WBC (0); Platelet Count 262 Thou/mm3 (140-440); RDW Standard Deviation 45.5 fL (36.4-46.3); Red Blood Count 4.22 Miln/mm3 (4.00-5.20); White Blood Count 9.8 Thou/mm3 (3.6-11.0)
[2024-06-23 19:38] LABS: Alanine Aminotransferase 8 U/L (10-49); Albumin, Serum 4.6 gm/dL (3.5-5.0); Albumin/Globulin Ratio 1.6 (1.2-2.2); Alkaline Phosphatase 67 U/L (46-116); Anion Gap 6 (7-16); Aspartate Amino Transferase 11 U/L (0-34); BUN/Creatinine Ratio 10 Ratio (12-20); Bilirubin,Total 0.3 mg/dL (0.3-1.2); Blood Urea Nitrogen 8 mg/dL (9-23); Calcium 9.3 mg/dL (8.3-10.6); Calcium (Corrected) 9.3 mg/dL (8.5-10.1); Carbon Dioxide 24.2 mMol/L (20.0-31.0); Chloride 104 mMol/L (98-107); Creatinine (Component) 0.8 mg/dL (0.6-1.3); Globulin 2.9 gm/dL (2.3-3.5); Glucose 97 mg/dL (74-106); Magnesium 1.9 mg/dL (1.6-2.6); Osmolality,Calculated 266 (275-295); Potassium 4.2 mMol/L (3.4-5.1); Sodium 134 mMol/L (136-145); Total Protein 7.5 gm/dL (5.7-8.2); eGFR > 60 See Note
[2024-06-23 20:07] LABS: Beta HCG,Quantitative 25771 mIU/mL (<5.0)
--- NOTE | 2024-06-23 20:10 | EDNOTE_ITS ---
ED OB Contraction Preg RMI/HPI General Chief complaint: Abdominal Pain Stated complaint: LLQ ABD PAIN Time Seen by Provider: 06/23/24 18:21 Arrival date/time: 06/23/24 18:12 RME / HPI RME / HPI Narrative: This section includes all my notes and documentations, including HPI, PE, and ED course. Khoa Crawford MD HPI: 29-year-old female here to be evaluated with lower abdominal pain since yesterday. She is currently . Based on LMP 05/15/2024, today's GA is 5 and 3/7 weeks. No vaginal bleeding or spotting. No other complaints. ROS: All negative except as documented in HPI. Physical Exam: General: Alert and oriented. No acute distress when remaining still. Eyes: Conjunctivae and lids clear. ENT: No nasal congestion. Neck: Supple. Heart: RRR. Lungs: No respiratory distress. Good air movement. No rhonchi, wheezing, rales. Abdomen: Soft and nontender. Normal bowel sounds. No distension. No rebound or guarding. Back: No CVA tenderness. Skin: Warm and dry. Neuro: Alert and oriented X 3. I reviewed all diagnostic test results. My review of the OB ultrasound report is IUP. Blood tests and urine tests unremarkable, except hCG 53242. At this point, diagnoses include threatened miscarriage. Recommended expectant management. Based on my best medical judgment, made decision no further evaluation or treatment indicated at this time. Patient understands and agrees to the katharine turner instructions customized and printed, see below. Discharge Instructions from Dr. Crawford: 1.? ? ? After evaluation, your baby is alive and doing well. 2.? ? ? Today, your GA is 6 weeks. 3.? ? ? Only time will determine whether you will have a successful or you will have a miscarriage.? If your symptoms stop, you can have a successful .? If your symptoms worsen, you may have a miscarriage.? If you have a miscarriage, unfortunately we won?t be able to save the baby because it?s too early.? Under 20 weeks, unfortunately we can?t help.?? 4.? ? ? See a private doctor on 06/25/2024..? No sexual activity until cleared by a doctor taking care of you.?? Ask to review all test results and official radiology reports, to make sure you receive all necessary follow-ups and monitoring, including repeat hCG level and ultrasound. 5.? ? ? Seek immediate medical care for severe bleeding (soaking more than 3 pads per hour), intolerable pain, or with any concerns.? Khoa Crawford MD Related Data Previous Rx's ?Medication ?Instructions ?Recorded hydrocodone 5 mg-acetaminophen 325 1 tab PO BID PRN pain #6 tabs 04/25/24 mg tablet ondansetron 4 mg disintegrating 4 mg PO Q8H #14 tabs 06/01/24 tablet cephalexin 500 mg capsule 500 mg PO TID #15 caps 06/09/24 ondansetron 4 mg disintegrating 4 mg PO TID PRN nausea and 06/23/24 tablet vomiting 30 days #10 tabs Allergies Allergy/AdvReac Type Severity Reaction Status Date / Time No Known Allergies Allergy Verified 06/12/24 09:51 Course Quality Measures none Orders Category Date Time Status US OB <= 14 weeks fetus Stat Exams 06/23/24 18:33 Completed Beta HCG,Quantitative Stat Lab 06/23/24 18:56 Completed CBC Stat Lab 06/23/24 18:56 Completed CMP [Comprehensive Metabolic Panel] Stat Lab 06/23/24 18:56 Completed Magnesium Stat Lab 06/23/24 18:56 Completed Rh Testing Only Stat Lab 06/23/24 18:56 Completed UA, C/S IF [Urinalysis, C/S if Indicated] Stat Lab 06/23/24 18:40 Completed Ondansetron Odt [Zofran Odt] Med 06/23/24 20:02 Discontinued 4 mg PO X1 ONE Vital Signs Vital signs: Vital Signs Temperature 97.9 F 06/23/24 18:34 Pulse Rate 77 06/23/24 18:34 Respiratory Rate 18 06/23/24 18:34 Blood Pressure 114/66 06/23/24 18:34 Pulse Oximetry (%) 99 06/23/24 18:34 Oxygen Delivery Method Room Air 06/23/24 18:34 OB/Uterine Contractions Patient data External records reviewed:: [facility] previous records Clinical information provided by:: patient Social determinants that could affect healthcare access:: none Patient has the following chronic illnesses:: None How is presenting disease/condition affected by chronic disease/condition?: no chronic disease Evaluation data The following diagnostics were reviewed and interpreted by me:: lab results and radiology exam(s) Lab and/or radiology exams considered but not ordered:: None Interpretation Summary: Threatened miscarriage Medications / Prescriptions Medications or Prescriptions considered but not ordered:: None Medication administrations:: Medication Administration History Discontinued Medications Ondansetron HCl (Ondansetron Odt 4 Mg Tabrap) 4 mg PO X1 ONE; Protocol Stop: 06/23/24 20:03 Zofran Consultations Consultation(s) initiated? (list below): No Diagnosis OB Contractions Differential Diagnosis: other (Complete AB, incomplete AB, threatened AB, ectopic ) Most likely diagnosis given after review of the tests above:: Threatened AB Admission Indicated Admission indicated?: not indicated Explain why admission is indicated or not indicated:: Admission criteria not met Admission Request Was there a request for admission?: No Disposition Plan Disposition Plan: Discharge Discharge Attestation Discharge Attestation: The patient and all family members were given an opportunity to ask questions and understood the discharge instructions. Discharge instructions specifically effects, indications for sooner follow up or return to the emergency department, and the expected course of current diagnosis. Patient condition: Stable Discharge Plan Plan Patient Disposition: HOME (Self Care) Prescriptions/Referrals Prescriptions/Med Rec: New ondansetron 4 mg tablet,disintegrating 4 mg PO TID PRN (Reason: nausea and vomiting) 30 Days Qty: 10 0RF No Action ondansetron 4 mg tablet,disintegrating 4 mg PO Q8H Qty: 14 0RF cephalexin 500 mg capsule 500 mg PO TID Qty: 15 0RF hydrocodone-acetaminophen 5-325 mg tablet 1 tab PO BID MDD 10 PRN (Reason: pain) Qty: 6 0RF Referrals: Juan Luis Amaral MD [Primary Care Provider] - In 1 week Problem List Clinical Impression: Threatened miscarriage Patient/Caregiver Discharge Instructions Discharge Activity: activity as tolerated Education Materials: ED Possible Miscarriage ... Additional Instructions: Discharge Instructions from Dr. Crawford: 1.? ? ? After evaluation, your baby is alive and doing well. 2.? ? ? Today, your GA is 6 weeks. 3.? ? ? Only time will determine whether you will have a successful or you will have a miscarriage.? If your symptoms stop, you can have a successful .? If your symptoms worsen, you may have a miscarriage.? If you have a miscarriage, unfortunately we won?t be able to save the baby because it?s too early.? Under 20 weeks, unfortunately we can?t help.?? 4.? ? ? See a private doctor on 06/25/2024..? No sexual activity until cleared by a doctor taking care of you.?? Ask to review all test results and official radiology reports, to make sure you receive all necessary follow-ups and monitoring, including repeat hCG level and ultrasound. 5.? ? ? Seek immediate medical care for severe bleeding (soaking more than 3 pads per hour), intolerable pain, or with any concerns.? Print Language: Malay Stand Alone Forms: Sally Award Info., Patient Portal Info Letter
[2024-06-23] MEDS: ONDANSETRON ODT 4 MG TABRAP PO (20:28)
== END 2024-06-23 20:30 | disposition home or self-care (01) ==
PROVIDERS: Emergency Provider Emergency Medicine; PCP Family Medicine
DX: O20.0 Threatened abortion (principal); Z3A.01 Less than 8 weeks gestation of pregnancy
CPT/HCPCS: 36415; 76801; 80053; 81001; 83735; 84702; 85025; 86901; 99284; Q0162

== ENCOUNTER 2024-06-27 10:47 | Emergency (ER) | payer MEDICAID, SELFPAY ==
[2024-06-27 10:48] VITALS: BMI 27.9
[2024-06-27 11:36] VITALS: BP 114/75; PULSE 92; RESP 19; TEMP 37.1; O2SAT 98
--- NOTE | 2024-06-27 11:44 | XR_ITS ---
Examination: Complete OB ultrasound, less than 14 weeks, transabdominal Date and time of exam: June 27, 2024 1232 hrs. Indications: Kidney infections beginning 5 days ago patient is taking antibiotics, early by history unknown viability Technique: Obstetrical ultrasound images less than 14 weeks performed via transabdominal imaging Findings: A normal shaped single intrauterine gestation is present in the uterus. pole 0.6 cm correspondences 6 weeks 3 days gestational age Cardiac motion 135 BPM Adjacent subchorionic hemorrhage 17 x 17 x 18 mm Ultrasonographic survey of visible structures unremarkable. Amniotic fluid volume appears appropriate for this estimated gestational age. Right ovary 3.4 x 1.9 x 2.4 cm arterial flow Left ovary 3.1 x 1.8 x 2.4 cm arterial flow Impression: Viable intrauterine gestation 6 weeks 3 days Recommend short-term follow-up transvaginal pelvic sonography, given the subchorionic hemorrhage.
--- NOTE | 2024-06-27 11:45 | PD.EDRME ---
Rapid Medical Screening Exam RME Arrival date/time: 06/27/24 10:47 29-year-old female G6, approximately 6 weeks presents emergency department complaining of low back pain that radiates towards the front of abdomen that started this morning. Chief Complaint: Abdominal Pain Time Seen by Provider: 06/27/24 11:38 Vital signs: Vital Signs Temperature 98.8 F 06/27/24 11:36 Pulse Rate 92 06/27/24 11:36 Respiratory Rate 19 06/27/24 11:36 Blood Pressure 114/75 06/27/24 11:36 Pulse Oximetry (%) 98 06/27/24 11:36 Oxygen Delivery Method Room Air 06/27/24 11:36 Vital signs reviewed by provider: Yes
[2024-06-27 12:24] LABS: Basophils # (Auto) 0.2 Thou/mm3 (0.0-0.2); Basophils % (Auto) 2 % (0-2.5); Eosinophils # (Auto) 0.3 Thou/mm3 (0.0-0.5); Eosinophils % (Auto) 3 % (0-10); Hematocrit 36.4 % (36.0-46.0); Hemoglobin 11.8 g/dL (12.0-16.0); Immature Granulocytes % (Auto) 0 % (0-0); Immature Granulocytes Auto 0.02 Thou/mm3 (0.00-0.00); Lymphocytes # (Auto) 1.7 Thou/mm3 (1.0-4.8); Lymphocytes % (Auto) 22 % (10-50); Mean Corpuscular HGB Conc 32.4 g/dl (31.0-37.0); Mean Corpuscular Hemoglobin 27.1 pg (25.0-35.0); Mean Corpuscular Volume 84 fL (80-100); Monocytes # (Auto) 0.4 Thou/mm3 (0.0-0.8); Monocytes % (Auto) 5 % (0-12); Neutrophils # (Auto) 5.1 Thou/mm3 (1.8-7.7); Neutrophils % (Auto) 67 % (37-80); Nucleated Red Blood Cell % 0 /100 WBC (0); Platelet Count 258 Thou/mm3 (140-440); RDW Standard Deviation 45.2 fL (36.4-46.3); Red Blood Count 4.36 Miln/mm3 (4.00-5.20); White Blood Count 7.6 Thou/mm3 (3.6-11.0)
[2024-06-27 12:46] LABS: Alanine Aminotransferase 8 U/L (10-49); Albumin, Serum 4.8 gm/dL (3.5-5.0); Albumin/Globulin Ratio 1.6 (1.2-2.2); Alkaline Phosphatase 72 U/L (46-116); Anion Gap 7 (7-16); Aspartate Amino Transferase 12 U/L (0-34); BUN/Creatinine Ratio 9 Ratio (12-20); Bilirubin,Total 0.6 mg/dL (0.3-1.2); Blood Urea Nitrogen 6 mg/dL (9-23); Calcium 9.5 mg/dL (8.3-10.6); Calcium (Corrected) 9.5 mg/dL (8.5-10.1); Carbon Dioxide 24.1 mMol/L (20.0-31.0); Chloride 105 mMol/L (98-107); Creatinine (Component) 0.7 mg/dL (0.6-1.3); Estimated Creatinine Clearance 118.9 mL/min (>60); Glucose 90 mg/dL (74-106); Lipase 31 U/L (12-53); Osmolality,Calculated 269 (275-295); Potassium 4.1 mMol/L (3.4-5.1); Sodium 136 mMol/L (136-145); Total Protein 7.8 gm/dL (5.7-8.2); eGFR > 60 See Note
[2024-06-27 12:56] LABS: Beta HCG,Quantitative 45095 mIU/mL (<5.0)
[2024-06-27 15:02] LABS: Collection Type, Urine Clean Catch
[2024-06-27 15:31] LABS: Bacteria,Urine Rare; Bilirubin,Urine Negative (Negative); Blood,Urine Negative (Negative); Clarity,Urine Turbid (Clear/Hazy); Color,Urine Yellow (Lt Yel-Yel); Culture Indicated,Urine Not Indicated; Glucose, Urine Negative (Negative); Ketones,Urine Negative (Negative); Leukocyte Esterase,Urine Positive (Negative); Nitrite,Urine Negative (Negative); Protein,Urine Trace (Neg - Trace); RBC,Urine 5 /hpf (0-3); Squamous Epithelial Cell,Urine 57 /hpf (0-5); Urobilinogen,Urine Negative mg/dL (0.0-1.0); WBC,Urine 10 /hpf (0-5)
--- NOTE | 2024-06-27 16:00 | PD.EDABDPN ---
ED Abdominal Pain RME/HPI General Chief Complaint: Abdominal Pain Stated complaint: REBEL KIDNEY INFECTION, 6WK PREG Time seen by provider: 06/27/24 11:38 Arrival date/time: 06/27/24 10:47 29-year-old female G6, approximately 6 weeks presents emergency department complaining of low back pain that radiates towards the front of abdomen that started this morning. Patient denies any vaginal bleeding. Source: patient Mode of arrival: ambulatory Limitations: no limitations RME / HPI RME / HPI narrative: 06/27/24 10:47 29-year-old female G6, approximately 6 weeks presents emergency department complaining of low back pain that radiates towards the front of abdomen that started this morning. Related Data Previous Rx's ?Medication ?Instructions ?Recorded cephalexin 500 mg capsule 500 mg PO QID 7 days #28 caps 06/24/24 hydrocodone 5 mg-acetaminophen 325 1 tab PO Q6H PRN pain 5 days #14 06/24/24 mg tablet tabs ondansetron 4 mg disintegrating 4 mg PO Q6H PRN nausea and 06/24/24 tablet vomiting 10 days #30 tabs Allergies Allergy/AdvReac Type Severity Reaction Status Date / Time No Known Allergies Allergy Verified 06/27/24 10:50 Review of Systems Review of Systems Systems Reviewed: All systems reviewed, normal except as documented Constitutional Constitutional: Reports system reviewed and no additional complaints, except as documented, Denies body ache(s), Denies chills and Denies fever(s) Eyes Eyes: Reports system reviewed and no additional complaints, except as documented and Denies change in vision ENT Ears, Nose, Mouth, and Throat: Reports system reviewed and no additional complaints, except as documented, Denies disequilibrium, Denies dizziness, Denies sore throat and Denies vertigo Cardiovascular Cardiovascular: Reports system reviewed and no additional complaints, except as documented, Denies chest pain and Denies dyspnea Respiratory Respiratory: Reports system reviewed and no additional complaints, except as documented, Denies chest congestion, Denies cough and Denies dyspnea Gastrointestinal Gastrointestinal: Reports system reviewed and no additional complaints, except as documented, Reports abdominal pain, Denies nausea and Denies vomiting Genitourinary Genitourinary: Denies abnormal vaginal bleeding and Denies vaginal discharge Musculoskeletal Musculoskeletal: Reports system reviewed and no additional complaints, except as documented, Denies abnormal gait, Denies arthralgias and Reports back pain Integumentary/Breasts Skin/Breast: Reports system reviewed and no additional complaints, except as documented, Denies erythema, Denies rash and Denies wounds Neurologic Neurologic: Reports system reviewed and no additional complaints, except as documented, Denies abnormal gait, Denies disequilibrium, Denies dizziness and Denies vertigo Past Medical History Past Medical History NEUROLOGIC: Positive Migraine; Negative Neurological Disorders, Cerebrovascular Accident, Transient Ischemic Attacks (TIA), Dementia, Alzheimer's Disease, Parkinson's Disease, Brain Tumor, Meningitis, Seizures, Epilepsy, Multiple Sclerosis, Cerebral Palsy, Amyotrophic Lateral Sclerosis (ALS/Monse Gehrig's), Guillain-[place] Syndrome, Spina Bifida, Paralysis, Peripheral Neuropathy, Stein's Palsy, Subdural Hematoma, Head Trauma, Spinal Cord Injury or Traumatic Brain Injury CARDIAC: Positive Cardiac Arrhythmia and Heart Murmur; Negative Cardiac Disorders, Myocardial Infarction, Atrial Fibrillation, Angina, Coronary Artery Disease, Atherosclerotic Heart Disease, Peripheral Vascular Disease, Hypercholesterolemia, Aneurysm, Congestive Heart Failure, Congenital Heart Disease, Valvular Heart Disease, Rheumatic Fever, Cardiomyopathy, Edema, Pericarditis, Cellulitis, Deep Vein Thrombosis, Hypertension, Hypotension or Varicose Veins RESPIRATORY: Negative Chronic Obstructive Pulmonary Disease (COPD), Asthma, Bronchitis, Emphysema, Pneumonia, Pulmonary Fibrosis, Cystic Fibrosis, Tuberculosis, Pulmonary Embolism, Pulmonary Edema or Sleep Apnea GASTROINTESTINAL: Negative Gastrointestinal Disorders, Hepatitis, Cirrhosis, Pancreatitis, Celiac Disease, Gall Bladder Disease, Gastrointestinal Bleed, Esophageal Varices, Hetah's Esophagus, Colitis, Ulcerative Colitis, Diverticulitis, Diverticulosis, Ulcer, Colorectal Cancer, Irritable Bowel, Crohn's Disease, Obstructive Bowel, Hiatal Hernia, Hemorrhoids, Gastroesophageal Reflux Disease or Obesity GENITOURINARY: Negative Genitourinary Disorders, Renal Disease, Kidney Stones, Polycystic Kidney Disease, Neurogenic Bladder, Inguinal Hernia, Dialysis, Prostate Cancer or Benign Prostatic Hyperplasia REPRODUCTIVE: Positive Gonorrhea, Previous Pregnancies and Syphilis; Negative Breast Cancer, Endometriosis, Genital Herpes, Pelvic Inflammatory Disease, Testicular Cancer or Uterine Prolapse MUSCULOSKELETAL: Negative Musculoskeletal Disorders, Muscular Dystrophy, Myasthenia Gravis, Marfan's Syndrome, Bone Cancer, Arthritis, Rheumatoid Arthritis, Osteoporosis, Degenerative Disk Disease, Gout, Scoliosis, Carpal Tunnel Syndrome, Fibromyalgia, Fractures, Degenerative Joint Disease, Osteomyelitis or Poliovirus ENT: Negative Cataracts, Glaucoma, Blind, Retinal Detachment, Macular Degeneration, Ear Infection, Deafness, Head Trauma or Eye Prosthesis ENDOCRINE: Negative Endocrine Disorders, Diabetes Mellitus Type 1, Diabetes Mellitus Type 2, Hypoglycemia, [place]'s Syndrome, [place]'s Disease, Hyperthyroidism, Hypothyroidism, Parathyroid Disease, Pituitary Disease, Systemic Lupus Erythematosus, Syndrome of Inappropriate Antidiuretic Hormone (SIADH), Adrenal Disease or Graves' Disease HEMATOLOGIC: Positive Blood Disorders and Anemia; Negative Leukemia, Hemophilia, Thalassemia, Sickle Cell Disease or Clotting Problems PSYCHO/SOCIAL: Positive Bipolar Disorder and Depression; Negative Psychiatric Problems, Schizophrenia, Recreational Drug Use, Depression, Anxiety, Self-Mutilation, Attention Deficit Disorder, Attention Deficit Hyperactivity Disorder, Post Traumatic Stress Disorder or Eating Disorder OTHER HISTORY: Positive Hospitalization and Blood Transfusions; Negative Autoimmune Disease, Down Syndrome, Autism, Developmental Delay, Shingles, Falls, Blood Transfusion Reaction, Anesthesia Reactions, Organ Transplant, Chemotherapy, Radiation Therapy, Hyperbaric Therapy, MRSA, VRSA, Vancomycin-Resistant Enterococci, Human Immunodeficiency Virus (HIV), Chicken Pox, Measles, Mumps, Rubella (Congolese Measles), Pertussis, Clostridium Difficile, Cancer, Breast Cancer, Cervical Cancer, Colorectal Cancer, Lung Cancer, Ovarian Cancer, Prostate Cancer or Testicular Cancer Family History FAMILY HISTORY: Positive Family Respiratory Disorders and Family Cancer; Negative Family Psychiatric Problems, Family Cardiac Disorders, Family Gastrointestinal Problems, Family Surgery or Family Anesthesia Reaction Surgical History SURGICAL: Positive Mastectomy; Negative Cardiac Surgery, Open Heart Surgery, Coronary Artery Bypass Graft, Valve Replacement, Vascular Surgery, Coronary Stent, Cardiac Catheterization, Pacemaker, Angiogram, Auto Implanted Cardiovert Defib, Carotid Endarterectomy, Endocrine Surgery, Thyroidectomy, Ear Surgery, Tympanostomy Tube, Eye Surgery, Nose Surgery, Oral Surgery, Tonsillectomy, Adenoidectomy, Cochlear Implant, Corneal Transplant, Throat Surgery, Abdominal Surgery, Tracheostomy, Gastric Bypass Surgery, Gastrostomy, Bowel Surgery, Nephrectomy, Transurethral Resection, Joint Replacement, Amputation, Open Reduction Internal Fixation, Arthroscopy, Neurologic Surgery, Brain Shunt, Lumpectomy, Hysterectomy, Tubal Ligation, Section, Vasectomy or Organ Transplant Social History SMOKING STATUS: Never smoker SECOND HAND EXPOSURE: No SUBSTANCE USE: does not use ED Exam General Limitations: Present no limitations General appearance: Present alert and in no apparent distress Head Head exam: Present atraumatic Eye Eye exam: Present normal appearance, PERRL and EOMI ENT ENT exam: Present normal exam, normal oropharynx and mucous membranes moist Neck Neck exam: Present normal inspection, full ROM and trachea midline Chest Chest inspection: Present normal inspection and symmetric chest wall rise Respiratory Respiratory exam: Present normal lung sounds bilaterally Cardiovascular Cardiovascular exam: Present regular rate, normal rhythm and normal heart sounds Abdominal Exam Abdominal exam: Present soft and normal bowel sounds Extremities Exam Extremities exam: Present normal inspection and full ROM Back Exam Back exam: Present normal inspection and full ROM Neurological Exam Neurological exam: Present alert, oriented X3 and CN II-XII intact Psychiatric Psychiatric exam: Present normal affect and normal mood Skin Skin exam: Present warm, dry, intact and normal color Course Quality Measures none Orders Category Date Time Status US OB <= 14 weeks fetus Stat Exams 06/27/24 11:44 Completed Beta HCG,Quantitative Stat Lab 06/27/24 11:56 Completed CBC Stat Lab 06/27/24 11:56 Completed CMP [Comprehensive Metabolic Panel] Stat Lab 06/27/24 11:56 Completed Lipase Stat Lab 06/27/24 11:56 Completed Urinalysis, C/S if Indicated Stat Lab 06/27/24 14:37 Completed Vital Signs Vital signs: Vital Signs Temperature 98.8 F 06/27/24 11:36 Pulse Rate 92 06/27/24 11:36 Respiratory Rate 19 06/27/24 11:36 Blood Pressure 114/75 06/27/24 11:36 Pulse Oximetry (%) 98 06/27/24 11:36 Oxygen Delivery Method Room Air 06/27/24 11:36 98% room air within normal limits Abdominal Pain MDM MDM Narrative MDM Narrative:: 29-year-old female G6, approximately 6 weeks presents emergency department complaining of low back pain that radiates towards the front of abdomen that started this morning. Patient denies any vaginal bleeding. CBC was unremarkable for any leukocytosis. Hemoglobin 11.8. CMP was unremarkable. Urinalysis was unremarkable as well. Ultrasound finding viable intrauterine gestation 6 weeks 3 days. Patient stable for discharge instructed to follow-up with with [facility] in 24 to 48 hours return to emergency department for any worsening symptoms or as needed. Patient data External records reviewed:: [facility] previous records Clinical information provided by:: patient Social determinants that could affect healthcare access:: none Patient has the following chronic illnesses:: See chart How is presenting disease/condition affected by chronic disease/condition?: uneffected by Evaluation data The following diagnostics were reviewed and interpreted by me:: lab results and radiology exam(s) Lab and/or radiology exams considered but not ordered:: Ordered Interpretation Summary: Interpreted by me Medications / Prescriptions Medications or Prescriptions considered but not ordered:: Ordered Medication administrations:: Given Consultations Consultation(s) initiated? (list below): No Diagnosis Differential diagnosis abdominal pain: abdominal pain, acute appendicitis, calculus of kidney, constipation, diverticulitis, endometriosis, gastroenteritis, pancreatitis and small bowel obstruction Most likely diagnosis given after review of the tests above:: Subchorionic hemorrhage Admission Indicated Admission indicated?: not indicated Admission Request Was there a request for admission?: No Disposition Plan Disposition Plan: Discharge Discharge Attestation Discharge Attestation: The patient and all family members were given an opportunity to ask questions and understood the discharge instructions. Discharge instructions specifically effects, indications for sooner follow up or return to the emergency department, and the expected course of current diagnosis. Patient condition: Stable Discharge Plan Plan Patient Disposition: HOME (Self Care) Disposition Comment: Stable Prescriptions/Referrals Prescriptions/Med Rec: No Action hydrocodone-acetaminophen 5-325 mg tablet 1 tab PO Q6H MDD 4 PRN (Reason: pain) 5 Days Qty: 14 0RF cephalexin 500 mg capsule 500 mg PO QID 7 Days Qty: 28 0RF ondansetron 4 mg tablet,disintegrating 4 mg PO Q6H PRN (Reason: nausea and vomiting) 10 Days Qty: 30 0RF Referrals: Juan Luis Amaral MD [Primary Care Provider] - In 1 week Problem List Clinical Impression: Subchorionic hemorrhage Patient/Caregiver Discharge Instructions Education Materials: Bleeding During Early Additional Instructions: Drink plenty fluids and get plenty of rest. Pelvic rest for 2 weeks. Request repeat ultrasound. Follow-up with [facility] in 24 to 48 hours and return to emergency department for any worsening symptoms or as needed. 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 Epperson
== END 2024-06-27 16:17 | disposition home or self-care (01) ==
PROVIDERS: Emergency Provider Emergency Medicine; PCP Family Medicine
DX: O20.8 Other hemorrhage in early pregnancy (principal); Z3A.01 Less than 8 weeks gestation of pregnancy
CPT/HCPCS: 36415; 76801; 80053; 81001; 83690; 84702; 85025; 99284

== ENCOUNTER 2024-07-06 01:50 | Emergency (ER) | payer MEDICAID, SELFPAY ==
[2024-07-06 01:50] VITALS: BMI 28.3
[2024-07-06 02:00] VITALS: BP 116/74; PULSE 88; RESP 17; TEMP 36.5; O2SAT 98
--- NOTE | 2024-07-06 02:04 | XR_ITS ---
Examination: Complete OB ultrasound, less than 14 weeks, transabdominal Date and time of exam: July 06, 2024 1502 hours INDICATIONS: Pelvic pain beginning 6 hours ago, secondary diagnoses subchorionic hemorrhage on ultrasound pelvis June 27, 2024 Technique: Obstetrical ultrasound images less than 14 weeks performed via transabdominal imaging Findings: A normal shaped single intrauterine gestation is present in the uterus. pole 1.6 cm corresponds to 8 weeks 0 days gestational age Subchorionic hemorrhage 2.2 x 1.1 x 1.1 cm Ultrasonographic survey of visible and placental structures unremarkable. Amniotic fluid volume appears appropriate for this estimated gestational age. Right ovary 2.5 x 1.9 x 1.8 cm arterial flow Left ovary 1.9 x 1.0 x 2.2 cm arterial flow IMPRESSION: Viable intrauterine gestation 8 weeks 0 days Given the patient's subchorionic hemorrhage, recommend continued short-term follow-up transvaginal pelvic sonography.
--- NOTE | 2024-07-06 02:04 | PD.EDRME ---
Rapid Medical Screening Exam RME Arrival date/time: 07/06/24 01:50 29-year-old female G6, approximately 7 weeks presents emergency department complaining of abdominal cramping and sore throat. patient denies any vaginal bleeding. Chief Complaint: Abdominal Pain Time Seen by Provider: 07/06/24 01:59 Vital signs: Vital Signs Temperature 97.7 F 07/06/24 02:00 Pulse Rate 88 07/06/24 02:00 Respiratory Rate 17 07/06/24 02:00 Blood Pressure 116/74 07/06/24 02:00 Pulse Oximetry (%) 98 07/06/24 02:00 Oxygen Delivery Method Room Air 07/06/24 02:00 Vital signs reviewed by provider: Yes
[2024-07-06 02:37] LABS: Basophils # (Auto) 0.2 Thou/mm3 (0.0-0.2); Basophils % (Auto) 1 % (0-2.5); Eosinophils # (Auto) 0.5 Thou/mm3 (0.0-0.5); Eosinophils % (Auto) 4 % (0-10); Hematocrit 34.3 % (36.0-46.0); Hemoglobin 11.3 g/dL (12.0-16.0); Immature Granulocytes % (Auto) 0 % (0-0); Immature Granulocytes Auto 0.03 Thou/mm3 (0.00-0.00); Lymphocytes # (Auto) 2.7 Thou/mm3 (1.0-4.8); Lymphocytes % (Auto) 22 % (10-50); Mean Corpuscular HGB Conc 32.9 g/dl (31.0-37.0); Mean Corpuscular Hemoglobin 27.4 pg (25.0-35.0); Mean Corpuscular Volume 83 fL (80-100); Monocytes # (Auto) 0.7 Thou/mm3 (0.0-0.8); Monocytes % (Auto) 6 % (0-12); Neutrophils # (Auto) 8.2 Thou/mm3 (1.8-7.7); Neutrophils % (Auto) 67 % (37-80); Nucleated Red Blood Cell % 0 /100 WBC (0); Platelet Count 274 Thou/mm3 (140-440); RDW Standard Deviation 43.9 fL (36.4-46.3); Red Blood Count 4.12 Miln/mm3 (4.00-5.20); White Blood Count 12.3 Thou/mm3 (3.6-11.0)
[2024-07-06 02:45] LABS: Alanine Aminotransferase < 7 U/L (10-49); Albumin, Serum 4.4 gm/dL (3.5-5.0); Albumin/Globulin Ratio 1.5 (1.2-2.2); Alkaline Phosphatase 68 U/L (46-116); Anion Gap 7 (7-16); Aspartate Amino Transferase 13 U/L (0-34); BUN/Creatinine Ratio 13 Ratio (12-20); Bilirubin,Total 0.3 mg/dL (0.3-1.2); Blood Urea Nitrogen 9 mg/dL (9-23); Calcium 9.2 mg/dL (8.3-10.6); Calcium (Corrected) 9.2 mg/dL (8.5-10.1); Carbon Dioxide 23.6 mMol/L (20.0-31.0); Chloride 106 mMol/L (98-107); Creatinine (Component) 0.7 mg/dL (0.6-1.3); Estimated Creatinine Clearance 119.6 mL/min (>60); Glucose 105 mg/dL (74-106); Osmolality,Calculated 272 (275-295); Potassium 3.7 mMol/L (3.4-5.1); Sodium 137 mMol/L (136-145); Total Protein 7.4 gm/dL (5.7-8.2); eGFR > 60 See Note
[2024-07-06 03:01] LABS: Collection Type, Urine Clean Catch
[2024-07-06 03:20] LABS: Beta HCG,Quantitative 88132 mIU/mL (<5.0)
[2024-07-06 03:27] LABS: Bacteria,Urine Rare; Bilirubin,Urine Negative (Negative); Blood,Urine Negative (Negative); Clarity,Urine Clear (Clear/Hazy); Color,Urine Lt-Yellow (Lt Yel-Yel); Culture Indicated,Urine Not Indicated; Glucose, Urine Negative (Negative); Ketones,Urine Negative (Negative); Leukocyte Esterase,Urine Positive (Negative); Nitrite,Urine Negative (Negative); PH,Urine 6.5 (5.0-7.0); Protein,Urine Trace (Neg - Trace); RBC,Urine 3 /hpf (0-3); Specific Gravity,Urine 1.025 (1.001-1.035); Squamous Epithelial Cell,Urine 2 /hpf (0-5); Urobilinogen,Urine Negative mg/dL (0.0-1.0); WBC,Urine 1 /hpf (0-5)
[2024-07-06 03:29] LABS: Strep A Rapid Negative (Negative)
--- NOTE | 2024-07-06 04:24 | PRELIM_ITS ---
Obstetric ultrasound (transabdominal). July 06, 2024 0302 hours Clinical history: Early viability Technique: Real-time ultrasound was performed using Duplex scanning including arteria l inflow, venous outflow, color and spectral Doppler analysis of both ovaries.Comparison: No prior st udy is available for comparison. Findings:There is an intrauterine gestation with a single live fetus of mean gestational age 8 weeks (CRL= 1.63 cm). The yolk sac is demonstrated, measuring 0.42 cm. Fet al cardiac activity is present at heart rate of 164 beats per minute. Estimated due date by [facility] is 02/15/2025. There is 2.2 x 1.1 x 1.1 cm subchorionic hemorrhage adjacent to the gestational sac. The uterus measures 10.7 x 5.8 x 8.2 cm. The right ovary measures 2.5 x 1.9 x 1.8 cm and is unremark able. The left ovary measures 1.9 x 1 x 2.2 cm and is unremarkable. Both ovaries demonstrate normal c olor flow signal on Doppler evaluation. There is no free fluid in the pelvis.Impression:Intrauterine gestation with a single live fetus of mean gestational age 8 weeks.Subchorionic hemorrhage as describ ed. Recommend follow-up. Other findings as described above. Report Electronically Signed By: Donovan ordonez 07/06/2024 4:23:06 AM [EST]
--- NOTE | 2024-07-06 04:41 | PD.EDABDPN ---
ED Abdominal Pain RME/HPI General Chief Complaint: Abdominal Pain Stated complaint: ABD CRAMPS Time seen by provider: 07/06/24 01:59 Arrival date/time: 07/06/24 01:50 29-year-old female G6, approximately 7 weeks presents emergency department complaining of abdominal cramping and sore throat. patient denies any vaginal bleeding. Source: patient Mode of arrival: ambulatory Limitations: no limitations RME / HPI RME / HPI narrative: 07/06/24 01:50 29-year-old female G6, approximately 7 weeks presents emergency department complaining of abdominal cramping and sore throat. patient denies any vaginal bleeding. Related Data Allergies Allergy/AdvReac Type Severity Reaction Status Date / Time No Known Allergies Allergy Verified 07/06/24 01:52 Review of Systems Review of Systems Systems Reviewed: All systems reviewed, normal except as documented Constitutional Constitutional: Reports system reviewed and no additional complaints, except as documented, Denies body ache(s), Denies chills and Denies fever(s) Eyes Eyes: Reports system reviewed and no additional complaints, except as documented and Denies change in vision ENT Ears, Nose, Mouth, and Throat: Reports system reviewed and no additional complaints, except as documented, Denies disequilibrium, Denies dizziness, Reports sore throat and Denies vertigo Cardiovascular Cardiovascular: Reports system reviewed and no additional complaints, except as documented, Denies chest pain and Denies dyspnea Respiratory Respiratory: Reports system reviewed and no additional complaints, except as documented, Denies chest congestion, Denies cough and Denies dyspnea Gastrointestinal Gastrointestinal: Reports system reviewed and no additional complaints, except as documented, Reports abdominal pain, Denies nausea and Denies vomiting Musculoskeletal Musculoskeletal: Reports system reviewed and no additional complaints, except as documented, Denies abnormal gait and Denies arthralgias Integumentary/Breasts Skin/Breast: Reports system reviewed and no additional complaints, except as documented, Denies erythema, Denies rash and Denies wounds Neurologic Neurologic: Reports system reviewed and no additional complaints, except as documented, Denies abnormal gait, Denies disequilibrium, Denies dizziness and Denies vertigo Past Medical History Past Medical History NEUROLOGIC: Positive Migraine; Negative Neurological Disorders, Cerebrovascular Accident, Transient Ischemic Attacks (TIA), Dementia, Alzheimer's Disease, Parkinson's Disease, Brain Tumor, Meningitis, Seizures, Epilepsy, Multiple Sclerosis, Cerebral Palsy, Amyotrophic Lateral Sclerosis (ALS/Monse Gehrig's), Guillain-Hammett Syndrome, Spina Bifida, Paralysis, Peripheral Neuropathy, Stein's Palsy, Subdural Hematoma, Head Trauma, Spinal Cord Injury or Traumatic Brain Injury CARDIAC: Positive Cardiac Arrhythmia and Heart Murmur; Negative Cardiac Disorders, Myocardial Infarction, Atrial Fibrillation, Angina, Coronary Artery Disease, Atherosclerotic Heart Disease, Peripheral Vascular Disease, Hypercholesterolemia, Aneurysm, Congestive Heart Failure, Congenital Heart Disease, Valvular Heart Disease, Rheumatic Fever, Cardiomyopathy, Edema, Pericarditis, Cellulitis, Deep Vein Thrombosis, Hypertension, Hypotension or Varicose Veins RESPIRATORY: Negative Chronic Obstructive Pulmonary Disease (COPD), Asthma, Bronchitis, Emphysema, Pneumonia, Pulmonary Fibrosis, Cystic Fibrosis, Tuberculosis, Pulmonary Embolism, Pulmonary Edema or Sleep Apnea GASTROINTESTINAL: Negative Gastrointestinal Disorders, Hepatitis, Cirrhosis, Pancreatitis, Celiac Disease, Gall Bladder Disease, Gastrointestinal Bleed, Esophageal Varices, Heath's Esophagus, Colitis, Ulcerative Colitis, Diverticulitis, Diverticulosis, Ulcer, Colorectal Cancer, Irritable Bowel, Crohn's Disease, Obstructive Bowel, Hiatal Hernia, Hemorrhoids, Gastroesophageal Reflux Disease or Obesity GENITOURINARY: Negative Genitourinary Disorders, Renal Disease, Kidney Stones, Polycystic Kidney Disease, Neurogenic Bladder, Inguinal Hernia, Dialysis, Prostate Cancer or Benign Prostatic Hyperplasia REPRODUCTIVE: Positive Gonorrhea, Previous Pregnancies and Syphilis; Negative Breast Cancer, Endometriosis, Genital Herpes, Pelvic Inflammatory Disease, Testicular Cancer or Uterine Prolapse MUSCULOSKELETAL: Negative Musculoskeletal Disorders, Muscular Dystrophy, Myasthenia Gravis, Marfan's Syndrome, Bone Cancer, Arthritis, Rheumatoid Arthritis, Osteoporosis, Degenerative Disk Disease, Gout, Scoliosis, Carpal Tunnel Syndrome, Fibromyalgia, Fractures, Degenerative Joint Disease, Osteomyelitis or Poliovirus ENT: Negative Cataracts, Glaucoma, Blind, Retinal Detachment, Macular Degeneration, Ear Infection, Deafness, Head Trauma or Eye Prosthesis ENDOCRINE: Negative Endocrine Disorders, Diabetes Mellitus Type 1, Diabetes Mellitus Type 2, Hypoglycemia, Stephanie's Syndrome, Gino's Disease, Hyperthyroidism, Hypothyroidism, Parathyroid Disease, Pituitary Disease, Systemic Lupus Erythematosus, Syndrome of Inappropriate Antidiuretic Hormone (SIADH), Adrenal Disease or Graves' Disease HEMATOLOGIC: Positive Blood Disorders and Anemia; Negative Leukemia, Hemophilia, Thalassemia, Sickle Cell Disease or Clotting Problems PSYCHO/SOCIAL: Positive Bipolar Disorder and Depression; Negative Psychiatric Problems, Schizophrenia, Recreational Drug Use, Depression, Anxiety, Self-Mutilation, Attention Deficit Disorder, Attention Deficit Hyperactivity Disorder, Post Traumatic Stress Disorder or Eating Disorder OTHER HISTORY: Positive Hospitalization and Blood Transfusions; Negative Autoimmune Disease, Down Syndrome, Autism, Developmental Delay, Shingles, Falls, Blood Transfusion Reaction, Anesthesia Reactions, Organ Transplant, Chemotherapy, Radiation Therapy, Hyperbaric Therapy, MRSA, VRSA, Vancomycin-Resistant Enterococci, Human Immunodeficiency Virus (HIV), Chicken Pox, Measles, Mumps, Rubella (Lao Measles), Pertussis, Clostridium Difficile, Cancer, Breast Cancer, Cervical Cancer, Colorectal Cancer, Lung Cancer, Ovarian Cancer, Prostate Cancer or Testicular Cancer Family History FAMILY HISTORY: Positive Family Respiratory Disorders and Family Cancer; Negative Family Psychiatric Problems, Family Cardiac Disorders, Family Gastrointestinal Problems, Family Surgery or Family Anesthesia Reaction Surgical History SURGICAL: Positive Mastectomy; Negative Cardiac Surgery, Open Heart Surgery, Coronary Artery Bypass Graft, Valve Replacement, Vascular Surgery, Coronary Stent, Cardiac Catheterization, Pacemaker, Angiogram, Auto Implanted Cardiovert Defib, Carotid Endarterectomy, Endocrine Surgery, Thyroidectomy, Ear Surgery, Tympanostomy Tube, Eye Surgery, Nose Surgery, Oral Surgery, Tonsillectomy, Adenoidectomy, Cochlear Implant, Corneal Transplant, Throat Surgery, Abdominal Surgery, Tracheostomy, Gastric Bypass Surgery, Gastrostomy, Bowel Surgery, Nephrectomy, Transurethral Resection, Joint Replacement, Amputation, Open Reduction Internal Fixation, Arthroscopy, Neurologic Surgery, Brain Shunt, Lumpectomy, Hysterectomy, Tubal Ligation, Section, Vasectomy or Organ Transplant Social History SMOKING STATUS: Never smoker SECOND HAND EXPOSURE: No SUBSTANCE USE: does not use ED Exam General Limitations: Present no limitations General appearance: Present alert and in no apparent distress Head Head exam: Present atraumatic Eye Eye exam: Present normal appearance, PERRL and EOMI ENT ENT exam: Present normal exam, normal oropharynx and mucous membranes moist Neck Neck exam: Present normal inspection, full ROM and trachea midline Chest Chest inspection: Present normal inspection and symmetric chest wall rise Respiratory Respiratory exam: Present normal lung sounds bilaterally Cardiovascular Cardiovascular exam: Present regular rate, normal rhythm and normal heart sounds Abdominal Exam Abdominal exam: Present soft and normal bowel sounds Extremities Exam Extremities exam: Present normal inspection and full ROM Back Exam Back exam: Present normal inspection and full ROM Neurological Exam Neurological exam: Present alert, oriented X3 and CN II-XII intact Psychiatric Psychiatric exam: Present normal affect and normal mood Skin Skin exam: Present warm, dry, intact and normal color Course Quality Measures none Orders Category Date Time Status US OB <= 14 weeks fetus Stat Exams 07/06/24 02:04 Taken ABO/RH Type Stat Lab 07/06/24 02:16 Results Beta HCG,Quantitative Stat Lab 07/06/24 02:16 Completed CBC Stat Lab 07/06/24 02:16 Completed CMP [Comprehensive Metabolic Panel] Stat Lab 07/06/24 02:16 Completed Strep A Rapid Stat Lab 07/06/24 02:14 Completed Urinalysis, C/S if Indicated Stat Lab 07/06/24 02:16 Completed Vital Signs Vital signs: Vital Signs Temperature 97.7 F 07/06/24 02:00 Pulse Rate 88 07/06/24 02:00 Respiratory Rate 17 07/06/24 02:00 Blood Pressure 116/74 07/06/24 02:00 Pulse Oximetry (%) 98 07/06/24 02:00 Oxygen Delivery Method Room Air 07/06/24 02:00 98% room air within normal limits Abdominal Pain MDM MDM Narrative MDM Narrative:: 29-year-old female G6, approximately 7 weeks presents emergency department complaining of abdominal cramping and sore throat. patient denies any vaginal bleeding. CBC mild leukocytosis 12.3. CMP was unremarkable. Beta-hCG 88,132. Urinalysis unremarkable. Ultrasound findings intrauterine gestation with single live fetus mean gestational age 8 weeks. Subchorionic hemorrhage. cardiac activity is present heart rate 164 bpm. Patient appears nontoxic and is hemodynamic stable. Strep swab negative. Patient discharged ducted to follow-up with [facility] upon discharge and request repeat ultrasound and return to emergency department for any worsening symptoms or as needed. Patient data External records reviewed:: [facility] previous records Clinical information provided by:: patient Social determinants that could affect healthcare access:: none Patient has the following chronic illnesses:: See chart How is presenting disease/condition affected by chronic disease/condition?: uneffected by Evaluation data The following diagnostics were reviewed and interpreted by me:: lab results and radiology exam(s) Lab and/or radiology exams considered but not ordered:: Ordered Interpretation Summary: Interpreted by me Medications / Prescriptions Medications or Prescriptions considered but not ordered:: N/A Medication administrations:: N/A Consultations Consultation(s) initiated? (list below): No Diagnosis Differential diagnosis abdominal pain: abdominal pain, acute appendicitis, calculus of kidney, constipation, diverticulitis, endometriosis, gastroenteritis, pancreatitis and small bowel obstruction Most likely diagnosis given after review of the tests above:: Subchorionic hemorrhage Admission Indicated Admission indicated?: not indicated Admission Request Was there a request for admission?: No Disposition Plan Disposition Plan: Discharge Discharge Attestation Discharge Attestation: The patient and all family members were given an opportunity to ask questions and understood the discharge instructions. Discharge instructions specifically effects, indications for sooner follow up or return to the emergency department, and the expected course of current diagnosis. Patient condition: Stable Discharge Plan Plan Patient Disposition: HOME (Self Care) Disposition Comment: Stable Prescriptions/Referrals Referrals: Juan Luis Amaral MD [Primary Care Provider] - In 1 week Problem List Clinical Impression: Subchorionic hemorrhage Patient/Caregiver Discharge Instructions Discharge Activity: activity as tolerated Education Materials: Bleeding During Early Additional Instructions: Your ultrasound result single live fetus mean gestational age 8 weeks with subchorionic hemorrhage observed as in previous ultrasound. Pelvic rest. Your strep throat swab was negative. Blood work and urinalysis no obvious signs of infection. You will need to follow-up with your [facility] and request repeat ultrasound. Return to emergency department for any worsening symptoms or as needed. Print Language: Slovenian Stand Alone Forms: Sally Award Info., Patient Portal Info Letter ZANE/JOSE Supervising Physician ZANE/JOSE Supervising Physician: Dr. Mueller
== END 2024-07-06 04:52 | disposition home or self-care (01) ==
PROVIDERS: Emergency Provider Emergency Medicine; PCP Family Medicine
DX: O46.8X1 Other antepartum hemorrhage, first trimester (principal); Z3A.01 Less than 8 weeks gestation of pregnancy
CPT/HCPCS: 36415; 76801; 80053; 81001; 84702; 85025; 86900; 86901; 87651; 99284

== ENCOUNTER 2024-07-08 23:27 | Emergency (ER) | payer MEDICAID, SELFPAY ==
[2024-07-08 23:44] VITALS: BP 122/78; PULSE 88; RESP 18; TEMP 36.6; O2SAT 99; BMI 27.8
--- NOTE | 2024-07-09 00:08 | PD.EDABDPN ---
ED Abdominal Pain RME/HPI General Chief Complaint: Abdominal Pain Stated complaint: ABDOMINAL PAIN Time seen by provider: 07/08/24 23:41 Arrival date/time: 07/08/24 23:27 Source: patient, RN notes reviewed and old records reviewed Mode of arrival: ambulatory Limitations: no limitations RME / HPI RME / HPI narrative: 29yof approximately 8 weeks gestation presents to ED for pelvic cramping that started today. Patient has had multiple ER visits (last visit 2 days ago) and OB ultrasounds for this . She had a follow-up appointment with Dr. Gant yesterday. No fever, vomiting or urinary symptoms reported. Patient denies vaginal bleeding. 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 Data Previous Rx's ?Medication ?Instructions ?Recorded acetaminophen 500 mg tablet 1,000 mg (2 x 500 mg) PO Q6H PRN 07/09/24 (Tylenol Extra Strength) pain #30 tabs Allergies Allergy/AdvReac Type Severity Reaction Status Date / Time No Known Allergies Allergy Verified 07/06/24 01:52 Review of Systems Review of Systems Systems Reviewed: All systems reviewed, normal except as documented Constitutional Constitutional: Denies chills and Denies fever(s) Gastrointestinal Gastrointestinal: Denies nausea and Denies vomiting Genitourinary Genitourinary: Denies abnormal vaginal bleeding, Denies dysuria, Reports pelvic pain and Denies vaginal discharge Musculoskeletal Musculoskeletal: Denies back pain Past Medical History Past Medical History NEUROLOGIC: Positive Migraine CARDIAC: Positive Heart Murmur REPRODUCTIVE: Positive Previous Pregnancies HEMATOLOGIC: Positive Anemia PSYCHO/SOCIAL: Positive Bipolar Disorder and Depression OTHER HISTORY: Positive Blood Transfusions Social History SMOKING STATUS: Never smoker SUBSTANCE USE: does not use ED Exam General Limitations: Present no limitations General appearance: Present alert and in no apparent distress Head Head exam: Present atraumatic and normocephalic Eye Eye exam: Present normal appearance, PERRL and EOMI ENT ENT exam: Present normal exam and mucous membranes moist Neck Neck exam: Present normal inspection and full ROM Chest Chest inspection: Present normal inspection and symmetric chest wall rise Respiratory Respiratory exam: Present normal lung sounds bilaterally; Absent respiratory distress Cardiovascular Cardiovascular exam: Present regular rate and normal rhythm Extremities Exam Extremities exam: Present normal inspection and full ROM Back Exam Back exam: Absent CVA tenderness (R) or CVA tenderness (L) Neurological Exam Neurological exam: Present alert and oriented X3 Psychiatric Psychiatric exam: Present anxious (Mild) Skin Skin exam: Present warm, dry, intact and normal color Course Quality Measures none Orders Category Date Time Status Beta HCG,Quantitative Stat Lab 07/09/24 00:30 Completed UA [Urinalysis] Stat Lab 07/09/24 00:29 Completed Acetaminophen Tab [Tylenol ES Tab] Med 07/09/24 00:08 Discontinued 1,000 mg PO X1 ONE Vital Signs Vital signs: Vital Signs Temperature 98 F 07/08/24 23:44 Pulse Rate 88 07/08/24 23:44 Respiratory Rate 18 07/08/24 23:44 Blood Pressure 122/78 07/08/24 23:44 Pulse Oximetry (%) 99 07/08/24 23:44 Oxygen Delivery Method Room Air 07/08/24 23:44 Abdominal Pain MDM MDM Narrative MDM Narrative:: 29yof approximately 8 weeks gestation presents to ED for pelvic cramping that started today. Patient has had multiple ER visits (last visit 2 days ago) and OB ultrasounds for this . She had a follow-up appointment with Dr. Gant yesterday. No fever, vomiting or urinary symptoms reported. Patient denies vaginal bleeding. 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 Pain improved after Tylenol administered. Patient is well-appearing, vitals are stable. Encouraged follow-up with OB as scheduled. Tylenol prn pain. Stable for discharge, RTED precautions given. Patient data External records reviewed:: [facility] previous records (07/06/2024 ED visit for pelvic pain in ) Clinical information provided by:: patient Social determinants that could affect healthcare access:: other (specify) (Unemployed) Patient has the following chronic illnesses:: Bipolar, anemia, migraine How is presenting disease/condition affected by chronic disease/condition?: exacerbated by Evaluation data The following diagnostics were reviewed and interpreted by me:: lab results Lab and/or radiology exams considered but not ordered:: OB ultrasound: Reviewed prior imaging. No vaginal bleeding reported Interpretation Summary: UA suspect contaminant. Negative wbcs and bacteria hcg quant 16749 increased from prior visit Medications / Prescriptions Medications or Prescriptions considered but not ordered:: No antibiotics recommended at this time Medication administrations:: Medication Administration History Discontinued Medications Acetaminophen (Acetaminophen 500 Mg Tablet) 1,000 mg PO X1 ONE Stop: 07/09/24 00:09 Last Admin: 07/09/24 00:42 Dose: 1,000 mg Documented By: OA Above medication administered in ED Consultations Consultation(s) initiated? (list below): No Diagnosis Differential diagnosis abdominal pain: other (Abdominal pain in , UTI, ectopic , threatened miscarriage, ovarian cyst) Most likely diagnosis given after review of the tests above:: Abdominal pain in Admission Indicated Admission indicated?: not indicated Admission Request Was there a request for admission?: No Disposition Plan Disposition Plan: Discharge Discharge Attestation Discharge Attestation: The patient and all family members were given an opportunity to ask questions and understood the discharge instructions. Discharge instructions specifically effects, indications for sooner follow up or return to the emergency department, and the expected course of current diagnosis. Patient condition: Stable Discharge Plan Plan Patient Disposition: HOME (Self Care) Patient condition on transfer: Stable Prescriptions/Referrals Prescriptions/Med Rec: New acetaminophen [Tylenol Extra Strength] 500 mg tablet 1,000 mg PO Q6H PRN (Reason: pain) Qty: 30 0RF Referrals: Juan Gant MD [Physician] - None (Call to schedule appointment for visit) Problem List Clinical Impression: Pelvic pain during Patient/Caregiver Discharge Instructions Education Materials: ED Abdominal Pain, Early Additional Instructions: Your hCG ( hormone) level continues to increase. You may take Tylenol as needed for pain. Follow-up with Dr. Gant as scheduled. Print Language: Venezuelan Stand Alone Forms: Sally Award Info., Patient Portal Info Letter PA/FOOD ADVISER Supervising Physician PA/FOOD ADVISER Supervising Physician: Ervin
[2024-07-09 00:42] LABS: Collection Type, Urine Clean Catch
[2024-07-09] MEDS: ACETAMINOPHEN 500 MG TABLET 1000 MG PO (00:42)
[2024-07-09 00:54] LABS: Bilirubin,Urine Negative (Negative); Blood,Urine Trace (Negative); Clarity,Urine Clear (Clear/Hazy); Color,Urine Lt-Yellow (Lt Yel-Yel); Glucose, Urine Negative (Negative); Ketones,Urine Negative (Negative); Leukocyte Esterase,Urine Positive (Negative); Nitrite,Urine Negative (Negative); PH,Urine 5.5 (5.0-7.0); Protein,Urine Negative (Neg - Trace); RBC,Urine 4 /hpf (0-3); Specific Gravity,Urine 1.025 (1.001-1.035); Squamous Epithelial Cell,Urine 1 /hpf (0-5); Urobilinogen,Urine Negative mg/dL (0.0-1.0); WBC,Urine 2 /hpf (0-5)
[2024-07-09 01:49] LABS: Beta HCG,Quantitative 95053 mIU/mL (<5.0)
[2024-07-09 02:20] VITALS: RESP 18
== END 2024-07-09 02:20 | disposition home or self-care (01) ==
LOC: SERX 07-09 02:14
PROVIDERS: Physician Assistant; Emergency Provider Emergency Medicine; PCP Family Medicine
DX: O26.891 Other specified pregnancy related conditions, first trimester (principal); R10.2 Pelvic and perineal pain; Z3A.08 8 weeks gestation of pregnancy
CPT/HCPCS: 36415; 81001; 84702; 99283; A9270

== ENCOUNTER 2024-07-22 22:44 | Emergency (ER) | payer MEDICAID, SELFPAY ==
[2024-07-22 22:45] VITALS: BMI 27.9
--- NOTE | 2024-07-22 23:20 | PD.EDRME ---
Rapid Medical Screening Exam RME Arrival date/time: 07/22/24 22:44 29 yo f present to right flank and abd pain, 9 weeks I have greeted and performed a focused initial assessment of this patient. A comprehensive ED assessment and evaluation of the patient, analysis of all test results, and completion of the medical decision making process will be conducted by additional ED providers. Chief Complaint: Abdominal Pain Time Seen by Provider: 07/22/24 22:51
--- NOTE | 2024-07-22 23:21 | XR_ITS ---
Examination: Complete OB ultrasound, less than 14 weeks, transabdominal Date and time of exam: July 22, 1999 2532 hours Indications: Intermittent flank pain beginning 2 weeks ago, subchorionic hemorrhage noted on pelvic sonogram June 27, 2024 Technique: Obstetrical ultrasound images less than 14 weeks performed via transabdominal imaging Findings: A normal shaped single intrauterine gestation is present in the uterus. pole 3.8 cm corresponds to 10 weeks 5 day gestational age Cardiac motion 150 BPM Adjacent subchorionic hemorrhage 18 x 10 x 8 mm Ultrasonographic survey of visible structures unremarkable. Amniotic fluid volume appears appropriate for this estimated gestational age. Cervix 2.58 cm Right ovary 3.0 x 1.5 x 1.7 cm arterial flow Left ovary 2.7 by 0.8 x 2.2 cm arterial flow Impression: Viable intrauterine gestation 10 weeks 5 days, small subchorionic hemorrhage
[2024-07-22 23:22] VITALS: BP 108/72; PULSE 76; RESP 18; TEMP 36.8; O2SAT 100
--- NOTE | 2024-07-23 | XR_ITS ---
Examination: Retroperitoneal ultrasound, complete Technique: Multiple high resolution grayscale images of the retroperitoneum obtained, including kidneys and bladder. Exam date and time:July 03, 2024 0003 hrs. Indications: Intermittent flank pain beginning 2 weeks ago Findings: Right kidney 11.6 x 4.9 x 4.2 cm cortex 1.4 cm Left kidney 10.0 x 4.4 x 4.2 cm cortex 1.8 cm No hydronephrosis or renal calculi No bladder mass or bladder calculi Bladder prevoid volume 94.5 cc Patient unable to void Impression: No renal calculi No hydronephrosis
[2024-07-23 00:54] LABS: Collection Type, Urine Voided
[2024-07-23 01:05] LABS: Basophils # (Auto) 0.1 Thou/mm3 (0.0-0.2); Basophils % (Auto) 1 % (0-2.5); Eosinophils # (Auto) 0.3 Thou/mm3 (0.0-0.5); Eosinophils % (Auto) 3 % (0-10); Hematocrit 33.8 % (36.0-46.0); Hemoglobin 11.5 g/dL (12.0-16.0); Immature Granulocytes % (Auto) 0 % (0-0); Immature Granulocytes Auto 0.02 Thou/mm3 (0.00-0.00); Lymphocytes # (Auto) 2.2 Thou/mm3 (1.0-4.8); Lymphocytes % (Auto) 21 % (10-50); Mean Corpuscular Hemoglobin 27.5 pg (25.0-35.0); Mean Corpuscular Volume 81 fL (80-100); Monocytes # (Auto) 0.6 Thou/mm3 (0.0-0.8); Monocytes % (Auto) 5 % (0-12); Neutrophils # (Auto) 7.3 Thou/mm3 (1.8-7.7); Neutrophils % (Auto) 69 % (37-80); Nucleated Red Blood Cell % 0 /100 WBC (0); Platelet Count 247 Thou/mm3 (140-440); Red Blood Count 4.18 Miln/mm3 (4.00-5.20); White Blood Count 10.6 Thou/mm3 (3.6-11.0)
[2024-07-23 01:12] LABS: Bilirubin,Urine Negative (Negative); Blood,Urine Negative (Negative); Clarity,Urine Clear (Clear/Hazy); Color,Urine Lt-Yellow (Lt Yel-Yel); Glucose, Urine Negative (Negative); Ketones,Urine Negative (Negative); Leukocyte Esterase,Urine Negative (Negative); Nitrite,Urine Negative (Negative); Protein,Urine Negative (Neg - Trace); RBC,Urine 2 /hpf (0-3); Specific Gravity,Urine 1.018 (1.001-1.035); Squamous Epithelial Cell,Urine 4 /hpf (0-5); Urobilinogen,Urine Negative mg/dL (0.0-1.0); WBC,Urine < 1 /hpf (0-5)
--- NOTE | 2024-07-23 01:19 | PRELIM_ITS ---
Renal/Retroperitoneal ultrasound with Doppler. July 23, 2024 at 0003 hours Clinical history: Flank pain. Technique: Duplex scan of the bilateral renal arterial and venous tree was performed utilizing 2D grayscale imaging, Doppler spectral analysis and color flow. Comparison: [facility].Findings:Right: The right kidney measures 11.6 cm and is unremarkable. There is no hydronephrosis or renal calculus. The corticomedullary differentiation is maintained.Left: The left k idney measures 10.0 cm and is unremarkable. There is no hydronephrosis or renal calculus. The cortico medullary differentiation is maintained.The urinary bladder is unremarkable. Bilateral UVJ jets demon strated by Doppler.No abnormalities by Doppler.The patient was unable to void.Impression:Unremarkable renal ultrasound examination.The patient was unable to void. Report Electronically Signed By: Dev Jacobs 07/23/2024 1:19:16 AM [EST]
[2024-07-23 01:49] LABS: Alanine Aminotransferase < 7 U/L (10-49); Albumin, Serum 4.5 gm/dL (3.5-5.0); Albumin/Globulin Ratio 1.5 (1.2-2.2); Alkaline Phosphatase 69 U/L (46-116); Anion Gap 9 (7-16); Aspartate Amino Transferase 13 U/L (0-34); BUN/Creatinine Ratio 15 Ratio (12-20); Bilirubin,Total 0.4 mg/dL (0.3-1.2); Blood Urea Nitrogen 9 mg/dL (9-23); Calcium 9.9 mg/dL (8.3-10.6); Calcium (Corrected) 9.9 mg/dL (8.5-10.1); Carbon Dioxide 25.5 mMol/L (20.0-31.0); Chloride 103 mMol/L (98-107); Creatinine (Component) 0.6 mg/dL (0.6-1.3); Estimated Creatinine Clearance 138.7 mL/min (>60); Globulin 3.1 gm/dL (2.3-3.5); Glucose 92 mg/dL (74-106); Lipase 39 U/L (12-53); Osmolality,Calculated 272 (275-295); Potassium 3.8 mMol/L (3.4-5.1); Sodium 137 mMol/L (136-145); Total Protein 7.6 gm/dL (5.7-8.2); eGFR > 60 See Note
[2024-07-23 02:17] LABS: Beta HCG,Quantitative 80694 mIU/mL (<5.0)
--- NOTE | 2024-07-23 03:43 | PD.EDABDPN ---
ED Abdominal Pain RME/HPI General Chief Complaint: Abdominal Pain Stated complaint: LOWER ABD PAIN, RIGHT FLANK PAIN Time seen by provider: 07/22/24 22:51 Arrival date/time: 07/22/24 22:44 Limitations: no limitations RME / HPI RME / HPI narrative: 07/22/24 22:44 29 yo f present to right flank and abd pain, 9 weeks I have greeted and performed a focused initial assessment of this patient. A comprehensive ED assessment and evaluation of the patient, analysis of all test results, and completion of the medical decision making process will be conducted by additional ED providers. -------. Dr. Staples's Main ED Evaluation: 29yo female who is 9-10 weeks gestation presents to the ED for a chief complaint of lower abdominal pain. Patient states she's had intermittent urinary urgency x 1 week, reporting she tries to use the restroom multiple times throughout the day without any relief, and worsened today. She denies any dysuria. Patient states she's had similar lower abdominal pain on and off for the last one month. She denies any N/V/D, fever, chills or any other associated symptoms. No known allergies. Related Data Previous Rx's ?Medication ?Instructions ?Recorded acetaminophen 500 mg tablet 1,000 mg (2 x 500 mg) PO Q6H PRN 07/09/24 (Tylenol Extra Strength) pain #30 tabs Allergies Allergy/AdvReac Type Severity Reaction Status Date / Time No Known Allergies Allergy Verified 07/06/24 01:52 Review of Systems Review of Systems Systems Reviewed: All systems reviewed, normal except as documented Past Medical History Past Medical History NEUROLOGIC: Positive Migraine; Negative Neurological Disorders, Cerebrovascular Accident, Transient Ischemic Attacks (TIA), Dementia, Alzheimer's Disease, Parkinson's Disease, Brain Tumor, Meningitis, Seizures, Epilepsy, Multiple Sclerosis, Cerebral Palsy, Amyotrophic Lateral Sclerosis (ALS/Monse Gehrig's), Guillain-Cushing Syndrome, Spina Bifida, Paralysis, Peripheral Neuropathy, Stein's Palsy, Subdural Hematoma, Head Trauma, Spinal Cord Injury or Traumatic Brain Injury CARDIAC: Positive Cardiac Arrhythmia and Heart Murmur; Negative Cardiac Disorders, Myocardial Infarction, Atrial Fibrillation, Angina, Coronary Artery Disease, Atherosclerotic Heart Disease, Peripheral Vascular Disease, Hypercholesterolemia, Aneurysm, Congestive Heart Failure, Congenital Heart Disease, Valvular Heart Disease, Rheumatic Fever, Cardiomyopathy, Edema, Pericarditis, Cellulitis, Deep Vein Thrombosis, Hypertension, Hypotension or Varicose Veins RESPIRATORY: Negative Chronic Obstructive Pulmonary Disease (COPD), Asthma, Bronchitis, Emphysema, Pneumonia, Pulmonary Fibrosis, Cystic Fibrosis, Tuberculosis, Pulmonary Embolism, Pulmonary Edema or Sleep Apnea GASTROINTESTINAL: Negative Gastrointestinal Disorders, Hepatitis, Cirrhosis, Pancreatitis, Celiac Disease, Gall Bladder Disease, Gastrointestinal Bleed, Esophageal Varices, Heath's Esophagus, Colitis, Ulcerative Colitis, Diverticulitis, Diverticulosis, Ulcer, Colorectal Cancer, Irritable Bowel, Crohn's Disease, Obstructive Bowel, Hiatal Hernia, Hemorrhoids, Gastroesophageal Reflux Disease or Obesity GENITOURINARY: Negative Genitourinary Disorders, Renal Disease, Kidney Stones, Polycystic Kidney Disease, Neurogenic Bladder, Inguinal Hernia, Dialysis, Prostate Cancer or Benign Prostatic Hyperplasia REPRODUCTIVE: Positive Gonorrhea, Previous Pregnancies and Syphilis; Negative Breast Cancer, Endometriosis, Genital Herpes, Pelvic Inflammatory Disease, Testicular Cancer or Uterine Prolapse MUSCULOSKELETAL: Negative Musculoskeletal Disorders, Muscular Dystrophy, Myasthenia Gravis, Marfan's Syndrome, Bone Cancer, Arthritis, Rheumatoid Arthritis, Osteoporosis, Degenerative Disk Disease, Gout, Scoliosis, Carpal Tunnel Syndrome, Fibromyalgia, Fractures, Degenerative Joint Disease, Osteomyelitis or Poliovirus ENT: Negative Cataracts, Glaucoma, Blind, Retinal Detachment, Macular Degeneration, Ear Infection, Deafness, Head Trauma or Eye Prosthesis ENDOCRINE: Negative Endocrine Disorders, Diabetes Mellitus Type 1, Diabetes Mellitus Type 2, Hypoglycemia, Stephanie's Syndrome, Gino's Disease, Hyperthyroidism, Hypothyroidism, Parathyroid Disease, Pituitary Disease, Systemic Lupus Erythematosus, Syndrome of Inappropriate Antidiuretic Hormone (SIADH), Adrenal Disease or Graves' Disease HEMATOLOGIC: Positive Blood Disorders and Anemia; Negative Leukemia, Hemophilia, Thalassemia, Sickle Cell Disease or Clotting Problems PSYCHO/SOCIAL: Positive Bipolar Disorder and Depression; Negative Psychiatric Problems, Schizophrenia, Recreational Drug Use, Depression, Anxiety, Self-Mutilation, Attention Deficit Disorder, Attention Deficit Hyperactivity Disorder, Post Traumatic Stress Disorder or Eating Disorder OTHER HISTORY: Positive Hospitalization and Blood Transfusions; Negative Autoimmune Disease, Down Syndrome, Autism, Developmental Delay, Shingles, Falls, Blood Transfusion Reaction, Anesthesia Reactions, Organ Transplant, Chemotherapy, Radiation Therapy, Hyperbaric Therapy, MRSA, VRSA, Vancomycin-Resistant Enterococci, Human Immunodeficiency Virus (HIV), Chicken Pox, Measles, Mumps, Rubella (Sinhala Measles), Pertussis, Clostridium Difficile, Cancer, Breast Cancer, Cervical Cancer, Colorectal Cancer, Lung Cancer, Ovarian Cancer, Prostate Cancer or Testicular Cancer Family History FAMILY HISTORY: Positive Family Respiratory Disorders and Family Cancer; Negative Family Psychiatric Problems, Family Cardiac Disorders, Family Gastrointestinal Problems, Family Surgery or Family Anesthesia Reaction Surgical History SURGICAL: Positive Mastectomy; Negative Cardiac Surgery, Open Heart Surgery, Coronary Artery Bypass Graft, Valve Replacement, Vascular Surgery, Coronary Stent, Cardiac Catheterization, Pacemaker, Angiogram, Auto Implanted Cardiovert Defib, Carotid Endarterectomy, Endocrine Surgery, Thyroidectomy, Ear Surgery, Tympanostomy Tube, Eye Surgery, Nose Surgery, Oral Surgery, Tonsillectomy, Adenoidectomy, Cochlear Implant, Corneal Transplant, Throat Surgery, Abdominal Surgery, Tracheostomy, Gastric Bypass Surgery, Gastrostomy, Bowel Surgery, Nephrectomy, Transurethral Resection, Joint Replacement, Amputation, Open Reduction Internal Fixation, Arthroscopy, Neurologic Surgery, Brain Shunt, Lumpectomy, Hysterectomy, Tubal Ligation, Section, Vasectomy or Organ Transplant Social History SMOKING STATUS: Never smoker SECOND HAND EXPOSURE: No SUBSTANCE USE: does not use ED Exam General Limitations: Present no limitations General appearance: Present alert and in no apparent distress Head Head exam: Present atraumatic Eye Eye exam: Present normal appearance, PERRL and EOMI ENT ENT exam: Present normal exam, normal oropharynx and mucous membranes moist Neck Neck exam: Present normal inspection, full ROM and trachea midline Chest Chest inspection: Present normal inspection and symmetric chest wall rise Respiratory Respiratory exam: Present normal lung sounds bilaterally Cardiovascular Cardiovascular exam: Present regular rate, normal rhythm and normal heart sounds Abdominal Exam Abdominal exam: Present soft and normal bowel sounds Extremities Exam Extremities exam: Present normal inspection and full ROM Back Exam Back exam: Present normal inspection and full ROM Neurological Exam Neurological exam: Present alert, oriented X3 and CN II-XII intact Psychiatric Psychiatric exam: Present normal affect and normal mood Skin Skin exam: Present warm, dry, intact and normal color Course Quality Measures none Orders Category Date Time Status US OB <= 14 weeks fetus Stat Exams 07/22/24 23:21 Completed US renal BI Stat Exams 07/23/24 00:00 Taken Beta HCG,Quantitative Stat Lab 07/22/24 23:21 Completed CBC Stat Lab 07/22/24 23:21 Completed CMP [Comprehensive Metabolic Panel] Stat Lab 07/22/24 23:21 Completed Lipase Stat Lab 07/22/24 23:21 Completed UA [Urinalysis] Stat Lab 07/23/24 00:34 Completed Acetaminophen Tab [Tylenol Tab] Med 07/23/24 03:55 Discontinued 1,000 mg PO X1 ONE Vital Signs Vital signs: Vital Signs Temperature 98.2 F 07/22/24 23:22 Pulse Rate 76 07/22/24 23:22 Respiratory Rate 18 07/22/24 23:22 Blood Pressure 108/72 07/22/24 23:22 Pulse Oximetry (%) 100 07/22/24 23:22 Oxygen Delivery Method Room Air 07/22/24 23:22 Pulse ox is 100% on room air, which is normal according to my interpretation. Abdominal Pain MDM MDM Narrative MDM Narrative:: Upon reviewing the patient's chart, the patient has been having similar abdominal pain since 06/19/24. She has been previously admitted to the OB service. There's no evidence for acute surgical abdomen at this time. Patient needs to follow-up with her OB. Patient data External records reviewed:: [facility] previous records (Per chart review, patient was seen here on 07/09/24 for pelvic pain.) Clinical information provided by:: patient Social determinants that could affect healthcare access:: none Patient has the following chronic illnesses:: none How is presenting disease/condition affected by chronic disease/condition?: no chronic disease Evaluation data The following diagnostics were reviewed and interpreted by me:: lab results and radiology exam(s) Lab and/or radiology exams considered but not ordered:: none Interpretation Summary: CBC is normal, CMP is normal, [place] [address], UA is unremarkable, according to my interpretation. ----- [facility] Report Signed Patient: XANDER VITALE [facility] Record#: [id number] Birthdate: 1995 Age/Sex: 29 / F Location: [facility] Attending Dr: Ordering Physician: Ruperto Valdez PA-C Date of Service: 07/22/24 Procedure(s): US OB <= 14 weeks fetus Accession Number(s): [id number] cc: Ronnie Rodriguez MD; Ruperto Valdez PA-C~ Examination: Complete OB ultrasound, less than 14 weeks, transabdominal Date and time of exam: July 22, 1999 2532 hours Indications: Intermittent flank pain beginning 2 weeks ago, subchorionic hemorrhage noted on pelvic sonogram June 27, 2024 Technique: Obstetrical ultrasound images less than 14 weeks performed via transabdominal imaging Findings: A normal shaped single intrauterine gestation is present in the uterus. pole 3.8 cm corresponds to 10 weeks 5 day gestational age Cardiac motion 150 BPM Adjacent subchorionic hemorrhage 18 x 10 x 8 mm Ultrasonographic survey of visible structures unremarkable. Amniotic fluid volume appears appropriate for this estimated gestational age. Cervix 2.58 cm Right ovary 3.0 x 1.5 x 1.7 cm arterial flow Left ovary 2.7 by 0.8 x 2.2 cm arterial flow Impression: Viable intrauterine gestation 10 weeks 5 days, small subchorionic hemorrhage Dictated By: Ronnie Rodriguez MD Signed By: <Electronically signed by Ronnie Rodriguez MD in OV> 07/22/24 5028 ----- [facility] Preliminary Report Draft Patient: XANDER VITALE. Record#: [id number] Birthdate: 1995 Age/Sex: 29 / F Location: [facility] Attending Dr: Ordering Physician: Date of Service: Procedure(s): Accession Number(s): cc: ~ Renal/Retroperitoneal ultrasound with Doppler. July 23, 2024 at 0003 hours Clinical history: Flank pain. Technique: Duplex scan of the bilateral renal arterial and venous tree was performed utilizing 2D grayscale imaging, Doppler spectral analysis and color flow. Comparison: None available at the time of this report. Findings: Right: The right kidney measures 11.6 cm and is unremarkable. There is no hydronephrosis or renal calculus. The corticomedullary differentiation is maintained. Left: The left kidney measures 10.0 cm and is unremarkable. There is no hydronephrosis or renal calculus. The corticomedullary differentiation is maintained. The urinary bladder is unremarkable. Bilateral UVJ jets demonstrated by Doppler. No abnormalities by Doppler. The patient was unable to void. Impression: Unremarkable renal ultrasound examination. The patient was unable to void. Report Electronically Signed By: Walter Jacobs 07/23/2024 1:19:16 AM [EST] Medications / Prescriptions Medications or Prescriptions considered but not ordered:: none Medication administrations:: Medication Administration History Discontinued Medications Acetaminophen (Acetaminophen 325 Mg Tablet) 1,000 mg PO X1 ONE Stop: 07/23/24 03:56 Last Admin: 07/23/24 04:05 Dose: 975 mg Documented By: CVL see above, if any Consultations Consultation(s) initiated? (list below): No Diagnosis Differential diagnosis abdominal pain: other (intrauterine , chorionic hemorrhage, UTI, pyelonephritis, doubt SBO, doubt ectopic ) Most likely diagnosis given after review of the tests above:: see below Admission Indicated Admission indicated?: not indicated Admission Request Was there a request for admission?: No Disposition Plan Disposition Plan: Discharge Discharge Attestation Discharge Attestation: The patient and all family members were given an opportunity to ask questions and understood the discharge instructions. Discharge instructions specifically effects, indications for sooner follow up or return to the emergency department, and the expected course of current diagnosis. Patient condition: Stable Discharge Plan Plan Patient Disposition: HOME (Self Care) Patient condition on transfer: Stable Prescriptions/Referrals Prescriptions/Med Rec: No Action acetaminophen [Tylenol Extra Strength] 500 mg tablet 1,000 mg PO Q6H PRN (Reason: pain) Qty: 30 0RF Referrals: Juan Luis Amaral MD [Primary Care Provider] - In 1 week Problem List Clinical Impression: Chronic pain Patient/Caregiver Discharge Instructions Education Materials: ED Chronic Pain Additional Instructions: 1. You will need to follow-up with your primary care physician to manage your pain that you have had throughout this entire . 2. Ensure you are drinking plenty of fluids to stay hydrated. 3. You can take [id number] Tylenol 650 mg 2-3 times a day for the next 2 to 3 days. 4. Return for worsening symptoms, or any other concerns. Print Language: Turkmen Stand Alone Forms: Sally Award Info., Patient Portal Info Letter
[2024-07-23] MEDS: ACETAMINOPHEN 325 MG TABLET 1000 MG PO (04:05)
[2024-07-23 04:36] VITALS: RESP 18
== END 2024-07-23 04:37 | disposition home or self-care (01) ==
PROVIDERS: Physician Assistant; Emergency Provider Emergency Medicine; PCP Family Medicine
DX: O20.8 Other hemorrhage in early pregnancy (principal); O26.891 Other specified pregnancy related conditions, first trimester; R10.31 Right lower quadrant pain; G89.29 Other chronic pain; Z3A.10 10 weeks gestation of pregnancy
CPT/HCPCS: 36415; 76770; 76801; 80053; 81001; 83690; 84702; 85025; 99284; A9270

== ENCOUNTER 2024-08-03 21:51 | Emergency (ER) | payer MEDICAID, SELFPAY ==
[2024-08-03 21:58] VITALS: BP 114/75; PULSE 72; RESP 19; TEMP 36.3; O2SAT 99; BMI 24.3
--- NOTE | 2024-08-03 22:27 | XR_ITS ---
Examination: Complete OB ultrasound, less than 14 weeks, transabdominal Date and time of exam: August 03, 2024 1020 hours INDICATIONS: Vaginal bleeding and pelvic pain beginning 2 days ago, early by history Technique: Obstetrical ultrasound images less than 14 weeks performed via transabdominal imaging Findings: A normal shaped single intrauterine gestation is present in the uterus. pole is 6.4 cm corresponds to 12 weeks 5 days gestational age Cardiac motion 155 BPM Adjacent subchorionic hemorrhage 10.5 x 3.4 x 8.4 cm Ultrasonographic survey of visible structures unremarkable. Amniotic fluid volume appears appropriate for this estimated gestational age. Right ovary 3.0 x 1.6 x 2.5 cm arterial flow Left ovary obscured by bowel gas. IMPRESSION: Viable intrauterine gestation 12 weeks 5 days Given the large adjacent subchorionic hemorrhage, recommend short term follow-up transvaginal pelvic sonography
--- NOTE | 2024-08-03 22:28 | PD.EDRME ---
Rapid Medical Screening Exam RME Arrival date/time: 08/03/24 21:51 29-year-old female approximately 13 weeks G6, presents emergency department complaining of vaginal bleeding that started yesterday. Chief Complaint: Vaginal Bleeding Time Seen by Provider: 08/03/24 22:09 Vital signs: Vital Signs Temperature 97.4 F 08/03/24 21:58 Pulse Rate 72 08/03/24 21:58 Respiratory Rate 19 08/03/24 21:58 Blood Pressure 114/75 08/03/24 21:58 Pulse Oximetry (%) 99 08/03/24 21:58 Oxygen Delivery Method Room Air 08/03/24 21:58 Vital signs reviewed by provider: Yes
[2024-08-03 22:44] LABS: Collection Type, Urine Clean Catch
[2024-08-03 22:50] LABS: Bilirubin,Urine Negative (Negative); Blood,Urine Negative (Negative); Clarity,Urine Turbid (Clear/Hazy); Color,Urine Yellow (Lt Yel-Yel); Culture Indicated,Urine Not Indicated; Glucose, Urine Negative (Negative); Ketones,Urine Negative (Negative); Leukocyte Esterase,Urine Negative (Negative); Nitrite,Urine Negative (Negative); Protein,Urine Trace (Neg - Trace); RBC,Urine 7 /hpf (0-3); Specific Gravity,Urine 1.026 (1.001-1.035); Squamous Epithelial Cell,Urine 8 /hpf (0-5); WBC,Urine 2 /hpf (0-5)
[2024-08-03 23:18] LABS: Basophils # (Auto) 0.2 Thou/mm3 (0.0-0.2); Basophils % (Auto) 2 % (0-2.5); Eosinophils # (Auto) 0.4 Thou/mm3 (0.0-0.5); Eosinophils % (Auto) 5 % (0-10); Hematocrit 30.9 % (36.0-46.0); Hemoglobin 10.4 g/dL (12.0-16.0); Immature Granulocytes % (Auto) 0 % (0-0); Immature Granulocytes Auto 0.03 Thou/mm3 (0.00-0.00); Lymphocytes # (Auto) 2.4 Thou/mm3 (1.0-4.8); Lymphocytes % (Auto) 26 % (10-50); Mean Corpuscular HGB Conc 33.7 g/dl (31.0-37.0); Mean Corpuscular Hemoglobin 27.3 pg (25.0-35.0); Mean Corpuscular Volume 81 fL (80-100); Monocytes # (Auto) 0.5 Thou/mm3 (0.0-0.8); Monocytes % (Auto) 6 % (0-12); Neutrophils # (Auto) 5.8 Thou/mm3 (1.8-7.7); Neutrophils % (Auto) 62 % (37-80); Nucleated Red Blood Cell % 0 /100 WBC (0); Platelet Count 257 Thou/mm3 (140-440); Red Blood Count 3.81 Miln/mm3 (4.00-5.20); White Blood Count 9.2 Thou/mm3 (3.6-11.0)
[2024-08-03 23:42] LABS: Alanine Aminotransferase < 7 U/L (10-49); Albumin/Globulin Ratio 1.4 (1.2-2.2); Alkaline Phosphatase 67 U/L (46-116); Anion Gap 8 (7-16); Aspartate Amino Transferase 12 U/L (0-34); BUN/Creatinine Ratio 13 Ratio (12-20); Bilirubin,Total 0.4 mg/dL (0.3-1.2); Blood Urea Nitrogen 8 mg/dL (9-23); Calcium 8.9 mg/dL (8.3-10.6); Calcium (Corrected) 8.9 mg/dL (8.5-10.1); Carbon Dioxide 24.8 mMol/L (20.0-31.0); Chloride 106 mMol/L (98-107); Creatinine (Component) 0.6 mg/dL (0.6-1.3); Globulin 2.9 gm/dL (2.3-3.5); Glucose 94 mg/dL (74-106); Osmolality,Calculated 275 (275-295); Potassium 3.5 mMol/L (3.4-5.1); Sodium 139 mMol/L (136-145); Total Protein 6.9 gm/dL (5.7-8.2); eGFR > 60 See Note
[2024-08-04 00:13] LABS: Beta HCG,Quantitative 40440 mIU/mL (<5.0)
--- NOTE | 2024-08-04 00:41 | EDNOTE_ITS ---
ED OB Contraction Preg RMI/HPI General Chief complaint: Vaginal Bleeding Stated complaint: Vaginal bleeding, 13 weeks OB Time Seen by Provider: 08/03/24 22:09 Source: patient Arrival date/time: 08/03/24 21:51 29-year-old female approximately 13 weeks G6, presents emergency department complaining of vaginal bleeding that started yesterday. Patient reports bleeding is mild and when she wipes. Patient denies saturation of pads. Patient denies any fever, chills, vomiting, or any other associated symptom. Mode of arrival: ambulatory Limitations: no limitations RME / HPI RME / HPI Narrative: 08/03/24 21:51 29-year-old female approximately 13 weeks G6, presents emergency department complaining of vaginal bleeding that started yesterday. Related Data Previous Rx's ?Medication ?Instructions ?Recorded acetaminophen 500 mg tablet 1,000 mg (2 x 500 mg) PO Q 6H PRN 07/09/24 (Tylenol Extra Strength) pain #30 tabs Allergies Allergy/AdvReac Type Severity Reaction Status Date / Time No Known Allergies Allergy Verified 07/06/24 01:52 Review of Systems Review of Systems Systems Reviewed: All systems reviewed, normal except as documented Constitutional Constitutional: Reports system reviewed and no additional complaints, except as documented, Denies body ache(s), Denies chills and Denies fever(s) Eyes Eyes: Reports system reviewed and no additional complaints, except as documented and Denies change in vision ENT Ears, Nose, Mouth, and Throat: Reports system reviewed and no additional complaints, except as documented, Denies disequilibrium, Denies dizziness, Denies sore throat and Denies vertigo Cardiovascular Cardiovascular: Reports system reviewed and no additional complaints, except as documented, Denies chest pain and Denies dyspnea Respiratory Respiratory: Reports system reviewed and no additional complaints, except as documented, Denies chest congestion, Denies cough and Denies dyspnea Gastrointestinal Gastrointestinal: Reports system reviewed and no additional complaints, except as documented, Reports abdominal pain, Denies nausea and Denies vomiting Genitourinary Genitourinary: Reports abnormal vaginal bleeding Musculoskeletal Musculoskeletal: Reports system reviewed and no additional complaints, except as documented, Denies abnormal gait and Denies arthralgias Integumentary/Breasts Skin/Breast: Reports system reviewed and no additional complaints, except as documented, Denies erythema, Denies rash and Denies wounds Neurologic Neurologic: Reports system reviewed and no additional complaints, except as documented, Denies abnormal gait, Denies disequilibrium, Denies dizziness and Denies vertigo Past Medical History Past Medical History NEUROLOGIC: Positive Migraine; Negative Neurological Disorders, Cerebrovascular Accident, Transient Ischemic Attacks (TIA), Dementia, Alzheimer's Disease, Parkinson's Disease, Brain Tumor, Meningitis, Seizures, Epilepsy, Multiple Sclerosis, Cerebral Palsy, Amyotrophic Lateral Sclerosis (ALS/Monse Gehrig's), Guillain-[place] Syndrome, Spina Bifida, Paralysis, Peripheral Neuropathy, Stein's Palsy, Subdural Hematoma, Head Trauma, Spinal Cord Injury or Traumatic Brain Injury CARDIAC: Positive Cardiac Arrhythmia and Heart Murmur; Negative Cardiac Disorders, Myocardial Infarction, Atrial Fibrillation, Angina, Coronary Artery Disease, Atherosclerotic Heart Disease, Peripheral Vascular Disease, Hypercholesterolemia, Aneurysm, Congestive Heart Failure, Congenital Heart Disease, Valvular Heart Disease, Rheumatic Fever, Cardiomyopathy, Edema, Pericarditis, Cellulitis, Deep Vein Thrombosis, Hypertension, Hypotension or Varicose Veins RESPIRATORY: Negative Chronic Obstructive Pulmonary Disease (COPD), Asthma, Bronchitis, Emphysema, Pneumonia, Pulmonary Fibrosis, Cystic Fibrosis, Tuberculosis, Pulmonary Embolism, Pulmonary Edema or Sleep Apnea GASTROINTESTINAL: Negative Gastrointestinal Disorders, Hepatitis, Cirrhosis, Pancreatitis, Celiac Disease, Gall Bladder Disease, Gastrointestinal Bleed, Esophageal Varices, Heath's Esophagus, Colitis, Ulcerative Colitis, Diverticulitis, Diverticulosis, Ulcer, Colorectal Cancer, Irritable Bowel, Crohn's Disease, Obstructive Bowel, Hiatal Hernia, Hemorrhoids, Gastroesophageal Reflux Disease or Obesity GENITOURINARY: Negative Genitourinary Disorders, Renal Disease, Kidney Stones, Polycystic Kidney Disease, Neurogenic Bladder, Inguinal Hernia, Dialysis, Prostate Cancer or Benign Prostatic Hyperplasia REPRODUCTIVE: Positive Gonorrhea, Previous Pregnancies and Syphilis; Negative Breast Cancer, Endometriosis, Genital Herpes, Pelvic Inflammatory Disease, Testicular Cancer or Uterine Prolapse MUSCULOSKELETAL: Negative Musculoskeletal Disorders, Muscular Dystrophy, Myasthenia Gravis, Marfan's Syndrome, Bone Cancer, Arthritis, Rheumatoid Arthritis, Osteoporosis, Degenerative Disk Disease, Gout, Scoliosis, Carpal Tunnel Syndrome, Fibromyalgia, Fractures, Degenerative Joint Disease, Osteomyelitis or Poliovirus ENT: Negative Cataracts, Glaucoma, Blind, Retinal Detachment, Macular Degeneration, Ear Infection, Deafness, Head Trauma or Eye Prosthesis ENDOCRINE: Negative Endocrine Disorders, Diabetes Mellitus Type 1, Diabetes Mellitus Type 2, Hypoglycemia, [place]'s Syndrome, [place]'s Disease, Hyperthyroidism, Hypothyroidism, Parathyroid Disease, Pituitary Disease, Systemic Lupus Erythematosus, Syndrome of Inappropriate Antidiuretic Hormone (SIADH), Adrenal Disease or Graves' Disease HEMATOLOGIC: Positive Blood Disorders and Anemia; Negative Leukemia, Hemophilia, Thalassemia, Sickle Cell Disease or Clotting Problems PSYCHO/SOCIAL: Positive Bipolar Disorder and Depression; Negative Psychiatric Problems, Schizophrenia, Recreational Drug Use, Depression, Anxiety, Self-Mutilation, Attention Deficit Disorder, Attention Deficit Hyperactivity Disorder, Post Traumatic Stress Disorder or Eating Disorder OTHER HISTORY: Positive Hospitalization and Blood Transfusions; Negative Autoimmune Disease, Down Syndrome, Autism, Developmental Delay, Shingles, Falls, Blood Transfusion Reaction, Anesthesia Reactions, Organ Transplant, Chemotherapy, Radiation Therapy, Hyperbaric Therapy, MRSA, VRSA, Vancomycin-Resistant Enterococci, Human Immunodeficiency Virus (HIV), Chicken Pox, Measles, Mumps, Rubella (Filipino Measles), Pertussis, Clostridium Difficile, Cancer, Breast Cancer, Cervical Cancer, Colorectal Cancer, Lung Cancer, Ovarian Cancer, Prostate Cancer or Testicular Cancer Family History FAMILY HISTORY: Positive Family Respiratory Disorders and Family Cancer; Negative Family Psychiatric Problems, Family Cardiac Disorders, Family Gastrointestinal Problems, Family Surgery or Family Anesthesia Reaction Surgical History SURGICAL: Positive Mastectomy; Negative Cardiac Surgery, Open Heart Surgery, Coronary Artery Bypass Graft, Valve Replacement, Vascular Surgery, Coronary Stent, Cardiac Catheterization, Pacemaker, Angiogram, Auto Implanted Cardiovert Defib, Carotid Endarterectomy, Endocrine Surgery, Thyroidectomy, Ear Surgery, Tympanostomy Tube, Eye Surgery, Nose Surgery, Oral Surgery, Tonsillectomy, Adenoidectomy, Cochlear Implant, Corneal Transplant, Throat Surgery, Abdominal Surgery, Tracheostomy, Gastric Bypass Surgery, Gastrostomy, Bowel Surgery, Nephrectomy, Transurethral Resection, Joint Replacement, Amputation, Open Reduction Internal Fixation, Arthroscopy, Neurologic Surgery, Brain Shunt, Lumpectomy, Hysterectomy, Tubal Ligation, Section, Vasectomy or Organ Transplant Social History SMOKING STATUS: Never smoker SECOND HAND EXPOSURE: No SUBSTANCE USE: does not use ED Exam General Limitations: Present no limitations General appearance: Present alert and in no apparent distress Head Head exam: Present atraumatic Eye Eye exam: Present normal appearance, PERRL and EOMI ENT ENT exam: Present normal exam, normal oropharynx and mucous membranes moist Neck Neck exam: Present normal inspection, full ROM and trachea midline Chest Chest inspection: Present normal inspection and symmetric chest wall rise Respiratory Respiratory exam: Present normal lung sounds bilaterally Cardiovascular Cardiovascular exam: Present regular rate, normal rhythm and normal heart sounds Abdominal Exam Abdominal exam: Present soft and normal bowel sounds Extremities Exam Extremities exam: Present normal inspection and full ROM Back Exam Back exam: Present normal inspection and full ROM Neurological Exam Neurological exam: Present alert, oriented X3 and CN II-XII intact Psychiatric Psychiatric exam: Present normal affect and normal mood Skin Skin exam: Present warm, dry, intact and normal color Course Quality Measures none Orders Category Date Time Status Bedside Influenza A&B Antigen Test NOW Care 08/03/24 22:28 Completed US OB <= 14 weeks fetus Stat Exams 08/03/24 22:27 Completed ABO/RH Type Stat Lab 08/03/24 22:54 Completed Beta HCG,Quantitative Stat Lab 08/03/24 22:54 Completed CBC Stat Lab 08/03/24 22:54 Completed CMP [Comprehensive Metabolic Panel] Stat Lab 08/03/24 22:54 Completed Urinalysis, C/S if Indicated Stat Lab 08/03/24 22:32 Completed Acetaminophen Tab [Tylenol ES Tab] Med 08/04/24 00:47 Discontinued 1,000 mg PO X1 ONE Vital Signs Vital signs: Vital Signs Temperature 97.4 F 08/03/24 21:58 Pulse Rate 72 08/03/24 21:58 Respiratory Rate 19 08/03/24 21:58 Blood Pressure 114/75 08/03/24 21:58 Pulse Oximetry (%) 99 08/03/24 21:58 Oxygen Delivery Method Room Air 08/03/24 21:58 99% room air within normal limits Vaginal Bleeding MDM Narrative MDM Narrative: 29-year-old female approximately 13 weeks G6, presents emergency department complaining of vaginal bleeding that started yesterday. Patient reports bleeding is mild and when she wipes. Patient denies saturation of pads. Patient denies any fever, chills, vomiting, or any other associated symptom. CBC was unremarkable for any leukocytosis and hemoglobin was 10.4. CMP was unremarkable for any elevated LFTs or gross electro abnormalities. Beta-hCG 51487. Ultrasound impression viable intrauterine gestation 12 weeks 5 days with cardiac motion 155 bpm. Ultrasound also showed subchorionic hemorrhage that was seen on previous ultrasound that was done on 07/22/2024 may be reason of vaginal bleeding. Instructed patient to have pelvic rest and close follow-up with her DIRECTOR BI[employer] Dr. Gant for repeat ultrasound. Patient appears nontoxic and is hemodynamically stable. Patient instructed to return to emergency department for any worsening symptoms or as needed. Patient data External records reviewed:: [facility] previous records Clinical information provided by:: patient Social determinants that could affect healthcare access:: none Patient has the following chronic illnesses:: See chart How is presenting disease/condition affected by chronic disease/condition?: uneffected by Evaluation data The following diagnostics were reviewed and interpreted by me:: lab results and radiology exam(s) Lab and/or radiology exams considered but not ordered:: Ordered Interpretation Summary: Interpreted by me Medications / Prescriptions Medications or Prescriptions considered but not ordered:: Ordered Medication administrations:: Medication Administration History Discontinued Medications Acetaminophen (Acetaminophen 500 Mg Tablet) 1,000 mg PO X1 ONE Stop: 08/04/24 00:48 Given Consultations Consultation(s) initiated? (list below): No Diagnosis Vaginal Bleeding Differential Diagnosis: missed , threatened , dysfunctional uterine bleeding, menometrorrhagia, incomplete , ectopic without intrauterine and vaginal bleeding Most likely diagnosis given after review of the tests above:: Subchorionic hemorrhage in first trimester Admission Indicated Admission indicated?: not indicated Admission Request Was there a request for admission?: No Disposition Plan Disposition Plan: Discharge Discharge Attestation Discharge Attestation: The patient and all family members were given an opportunity to ask questions and understood the discharge instructions. Discharge instructions specifically effects, indications for sooner follow up or return to the emergency department, and the expected course of current diagnosis. Patient condition: Stable Discharge Plan Plan Patient Disposition: HOME (Self Care) Disposition Comment: Stable Prescriptions/Referrals Prescriptions/Med Rec: No Action acetaminophen [Tylenol Extra Strength] 500 mg tablet 1,000 mg PO Q6H PRN (Reason: pain) Qty: 30 0RF Referrals: Juan Luis Amaral MD [Primary Care Provider] - In 1 week Problem List Clinical Impression: Subchorionic hemorrhage in first trimester Patient/Caregiver Discharge Instructions Education Materials: Bleeding During Early Additional Instructions: Pelvic rest. Take Tylenol as needed for any pain. Follow-up with [employer]OR BIOLOG[employer] in 2 to 3 days for repeat ultrasound and beta-hCG levels. Return immediately to emergency department for any increased bleeding worsening symptoms or as needed. Print Language: Indian Stand Alone Forms: Sally Award Info., Patient Portal Info Letter PA/FIELD COUNSEL Supervising Physician PA/JOSE Supervising Physician: Dr. Brokos
== END 2024-08-04 01:20 | disposition home or self-care (01) ==
PROVIDERS: Emergency Provider Emergency Medicine; PCP Family Medicine
DX: O20.8 Other hemorrhage in early pregnancy (principal); Z3A.13 13 weeks gestation of pregnancy
CPT/HCPCS: 36415; 76801; 80053; 81001; 84702; 85025; 86900; 86901; 87400; 99284

== ENCOUNTER 2024-08-04 17:47 | Emergency (ER) | payer MEDICAID, SELFPAY ==
[2024-08-04 17:49] VITALS: BMI 27.4
[2024-08-04 18:06] VITALS: BP 126/72; PULSE 88; RESP 18; TEMP 36.9; O2SAT 100
--- NOTE | 2024-08-04 18:26 | EDNOTE_ITS ---
ED Abdominal Pain RME/HPI General Chief Complaint: Abdominal Pain Stated complaint: ABD PAIN TODAY AFTER Time seen by provider: 08/04/24 18:16 Arrival date/time: 08/04/24 17:47 29F with no significant PMH presents to ED with ab pain after she had a voluntary in [place] (vacuum). Patient was not prescribed any meds. Limitations: no limitations Related Data Previous Rx's ?Medication ?Instructions ?Recorded acetaminophen 500 mg tablet 1,000 mg (2 x 500 mg) PO Q 6H PRN 07/09/24 (Tylenol Extra Strength) pain #30 tabs Allergies Allergy/AdvReac Type Severity Reaction Status Date / Time No Known Allergies Allergy Verified 08/04/24 17:49 Review of Systems Review of Systems Systems Reviewed: All systems reviewed, normal except as documented Constitutional Constitutional: Reports system reviewed and no additional complaints, except as documented, Denies fever(s) and Denies headache(s) ENT Ears, Nose, Mouth, and Throat: Denies disequilibrium and Denies headache(s) Cardiovascular Cardiovascular: Reports system reviewed and no additional complaints, except as documented, Denies chest pain and Denies dyspnea Respiratory Respiratory: Reports system reviewed and no additional complaints, except as documented, Denies cough and Denies dyspnea Gastrointestinal Gastrointestinal: Reports system reviewed and no additional complaints, except as documented, Reports as per HPI, Reports abdominal pain, Denies nausea and Denies vomiting Neurologic Neurologic: Reports system reviewed and no additional complaints, except as documented, Denies confusion, Denies disequilibrium and Denies headache(s) Psychiatric Psychiatric: Denies confusion Past Medical History Past Medical History NEUROLOGIC: Positive Migraine; Negative Neurological Disorders, Cerebrovascular Accident, Transient Ischemic Attacks (TIA), Dementia, Alzheimer's Disease, Parkinson's Disease, Brain Tumor, Meningitis, Seizures, Epilepsy, Multiple Sclerosis, Cerebral Palsy, Amyotrophic Lateral Sclerosis (ALS/Monse Gehrig's), Guillain-[place] Syndrome, Spina Bifida, Paralysis, Peripheral Neuropathy, Stein's Palsy, Subdural Hematoma, Head Trauma, Spinal Cord Injury or Traumatic Brain Injury CARDIAC: Positive Cardiac Arrhythmia and Heart Murmur; Negative Cardiac Disorders, Myocardial Infarction, Atrial Fibrillation, Angina, Coronary Artery Disease, Atherosclerotic Heart Disease, Peripheral Vascular Disease, Hypercholesterolemia, Aneurysm, Congestive Heart Failure, Congenital Heart Disease, Valvular Heart Disease, Rheumatic Fever, Cardiomyopathy, Edema, Pericarditis, Cellulitis, Deep Vein Thrombosis, Hypertension, Hypotension or Varicose Veins RESPIRATORY: Negative Chronic Obstructive Pulmonary Disease (COPD), Asthma, Br onchitis, Emphysema, Pneumonia, Pulmonary Fibrosis, Cystic Fibrosis, Tuberculosis, Pulmonary Embolism, Pulmonary Edema or Sleep Apnea GASTROINTESTINAL: Negative Gastrointestinal Disorders, Hepatitis, Cirrhosis, Pancreatitis, Celiac Disease, Gall Bladder Disease, Gastrointestinal Bleed, Esophageal Varices, Heath's Esophagus, Colitis, Ulcerative Colitis, Diverticulitis, Diverticulosis, Ulcer, Colorectal Cancer, Irritable Bowel, Crohn's Disease, Obstructive Bowel, Hiatal Hernia, Hemorrhoids, Gastroesophageal Reflux Disease or Obesity GENITOURINARY: Negative Genitourinary Disorders, Renal Disease, Kidney Stones, Polycystic Kidney Disease, Neurogenic Bladder, Inguinal Hernia, Dialysis, Prostate Cancer or Benign Prostatic Hyperplasia REPRODUCTIVE: Positive Gonorrhea, Previous Pregnancies and Syphilis; Negative Breast Cancer, Endometriosis, Genital Herpes, Pelvic Inflammatory Disease, Testicular Cancer or Uterine Prolapse MUSCULOSKELETAL: Negative Musculoskeletal Disorders, Muscular Dystrophy, Myasthenia Gravis, Marfan's Syndrome, Bone Cancer, Arthritis, Rheumatoid Arthritis, Osteoporosis, Degenerative Disk Disease, Gout, Scoliosis, Carpal Tunnel Syndrome, Fibromyalgia, Fractures, Degenerative Joint Disease, Osteomyelitis or Poliovirus ENT: Negative Cataracts, Glaucoma, Blind, Retinal Detachment, Macular Degeneration, Ear Infection, Deafness, Head Trauma or Eye Prosthesis ENDOCRINE: Negative Endocrine Disorders, Diabetes Mellitus Type 1, Diabetes Mellitus Type 2, Hypoglycemia, Stephanie's Syndrome, [place]'s Disease, Hyperthyroidism, Hypothyroidism, Parathyroid Disease, Pituitary Disease, Systemic Lupus Erythematosus, Syndrome of Inappropriate Antidiuretic Hormone (SIADH), Adrenal Disease or Graves' Disease HEMATOLOGIC: Positive Blood Disorders and Anemia; Negative Leukemia, Hemophilia, Thalassemia, Sickle Cell Disease or Clotting Problems PSYCHO/SOCIAL: Positive Bipolar Disorder and Depression; Negative Psychiatric Problems, Schizophrenia, Recreational Drug Use, Depression, Anxiety, Self-Mutilation, Attention Deficit Disorder, Attention Deficit Hyperactivity Disorder, Post Traumatic Stress Disorder or Eating Disorder OTHER HISTORY: Positive Hospitalization and Blood Transfusions; Negative Autoimmune Disease, Down Syndrome, Autism, Developmental Delay, Shingles, Falls, Blood Transfusion Reaction, Anesthesia Reactions, Organ Transplant, Chemotherapy, Radiation Therapy, Hyperbaric Therapy, MRSA, VRSA, Vancomycin-Resistant Enterococci, Human Immunodeficiency Virus (HIV), Chicken Pox, Measles, Mumps, Rubella ([place] Measles), Pertussis, Clostridium Difficile, Cancer, Breast Cancer, Cervical Cancer, Colorectal Cancer, Lung Cancer, Ovarian Cancer, Prostate Cancer or Testicular Cancer Family History FAMILY HISTORY: Positive Family Respiratory Disorders and Family Cancer; Negative Family Psychiatric Problems, Family Cardiac Disorders, Family Gastrointestinal Problems, Family Surgery or Family Anesthesia Reaction Surgical History SURGICAL: Positive Mastectomy; Negative Cardiac Surgery, Open Heart Surgery, Coronary Artery Bypass Graft, Valve Replacement, Vascular Surgery, Coronary Stent, Cardiac Catheterization, Pacemaker, Angiogram, Auto Implanted Cardiovert Defib, Carotid Endarterectomy, Endocrine Surgery, Thyroidectomy, Ear Surgery, Tympanostomy Tube, Eye Surgery, Nose Surgery, Oral Surgery, Tonsillectomy, Adenoidectomy, Cochlear Implant, Corneal Transplant, Throat Surgery, Abdominal Surgery, Tracheostomy, Gastric Bypass Surgery, Gastrostomy, Bowel Surgery, Nephrectomy, Transurethral Resection, Joint Replacement, Amputation, Open Reduction Internal Fixation, Arthroscopy, Neurologic Surgery, Brain Shunt, Lumpectomy, Hysterectomy, Tubal Ligation, Section, Vasectomy or Organ Transplant Social History SMOKING STATUS: Never smoker SECOND HAND EXPOSURE: No SUBSTANCE USE: does not use ED Exam General Limitations: Present no limitations General appearance: Present alert and in no apparent distress Head Head exam: Present atraumatic Eye Eye exam: Present normal appearance, PERRL and EOMI ENT ENT exam: Present normal exam, normal oropharynx and mucous membranes moist Neck Neck exam: Present normal inspection, full ROM and trachea midline Chest Chest inspection: Present normal inspection and symmetric chest wall rise Respiratory Respiratory exam: Present normal lung sounds bilaterally Cardiovascular Cardiovascular exam: Present regular rate, normal rhythm and normal heart sounds Abdominal Exam Abdominal exam: Present soft and normal bowel sounds Extremities Exam Extremities exam: Present normal inspection and full ROM Back Exam Back exam: Present normal inspection and full ROM Neurological Exam Neurological exam: Present alert, oriented X3 and CN II-XII intact Psychiatric Psychiatric exam: Present normal affect and normal mood Skin Skin exam: Present warm, dry, intact and normal color Course Quality Measures none Orders Category Date Time Status HYDROcodone*/APAP 5/325 [[place] 5/325] Med 08/04/24 18:16 Discontinued 1 tab PO X1 ONE Vital Signs Vital signs: Vital Signs Temperature 98.5 F 08/04/24 18:06 Pulse Rate 88 08/04/24 18:06 Respiratory Rate 18 08/04/24 18:06 Blood Pressure 126/72 08/04/24 18:06 Pulse Oximetry (%) 100 08/04/24 18:06 Oxygen Delivery Method Room Air 08/04/24 18:06 O2 at 100% on RA and WNLs Abdominal Pain MDM MDM Narrative MDM Narrative:: 29F with no significant PMH presents to ED with ab pain after she had a volu ntary in [place] (vacuum). Patient was not prescribed any meds. Physical exam reveals no pelvic tenderness. Patient is afebrile, calm, and alert. Meds and director of group counseling program given. Patient data External records reviewed:: [facility] previous records Clinical information provided by:: patient Social determinants that could affect healthcare access:: none Patient has the following chronic illnesses:: none How is presenting disease/condition affected by chronic disease/condition?: no chronic disease Evaluation data The following diagnostics were reviewed and interpreted by me:: other (specify) (none) Lab and/or radiology exams considered but not ordered:: not ordered Interpretation Summary: n/a Medications / Prescriptions Medications or Prescriptions considered but not ordered:: ordered Medication administrations:: Medication Administration History Discontinued Medications Hydrocodone Bitart/Acetaminophen (Hydrocodone/Apap 5/325 Tablet) 1 tab PO X1 ONE Stop: 08/04/24 18:17 above Consultations Consultation(s) initiated? (list below): No Diagnosis Differential diagnosis abdominal pain: abdominal pain, acute appendicitis, calculus of kidney, constipation, diverticulitis, endometriosis, gastroenter itis, pancreatitis, small bowel obstruction and other (post op pain) Most likely diagnosis given after review of the tests above:: post op pain Admission Indicated Admission indicated?: not indicated Admission Request Was there a request for admission?: No Disposition Plan Disposition Plan: Discharge Discharge Attestation Discharge Attestation: The patient and all family members were given an opportunity to ask questions and understood the discharge instructions. Discharge instructions specifically effects, indications for sooner follow up or return to the emergency department, and the expected course of current diagnosis. Patient condition: Stable Discharge Plan Plan Patient Disposition: HOME (Self Care) Disposition Comment: Stable Prescriptions/Referrals Prescriptions/Med Rec: No Action acetaminophen [Tylenol Extra Strength] 500 mg tablet 1,000 mg PO Q6H PRN (Reason: pain) Qty: 30 0RF Problem List Clinical Impression: Post-op pain Patient/Caregiver Discharge Instructions Education Materials: Managing Post-Op Pain at Home Additional Instructions: Please follow-up with PCP within 24-48 hours and return immediately if symptoms worsen. Print Language: Luxem[place]ish Stand Alone Forms: Patient Portal Info Letter PA/UNIT CONTROL WORKER Supervising Physician PA/UNIT CONTROL WORKER Supervising Physician: Dr. Staples
[2024-08-04] MEDS: HYDROcodone/APAP 5/325 TABLET 1 TAB PO (18:29)
== END 2024-08-04 18:49 | disposition home or self-care (01) ==
LOC: SERX 18:36
PROVIDERS: Emergency Provider Emergency Medicine
DX: O04.89 (Induced) termination of pregnancy with other complications (principal); R10.9 Unspecified abdominal pain
CPT/HCPCS: 99283; A9270

== ENCOUNTER 2024-08-06 12:04 | Emergency (ER) | payer MEDICAID, SELFPAY ==
[2024-08-06 12:05] VITALS: BMI 27.4
[2024-08-06 12:58] VITALS: BP 128/85; PULSE 76; RESP 18; TEMP 36.9; O2SAT 100
--- NOTE | 2024-08-06 13:06 | XR_ITS ---
Examination: Transvaginal ultrasound of the pelvis, complete Technique: Transvaginal sonographic images pelvis performed using gusman scale imaging Exam date and time: August 06, 2024 1519 hours INDICATIONS: Status post therapeutic 2 days ago with severe pelvic pain and vaginal bleeding FINDINGS: Uterus 11.3 x 6.6 x 9.0 cm Endometrium is thickened and heterogeneous 3.7 cm No intrauterine gestation Right ovary 2.4 cm arterial flow small follicles Left ovary obscured by bowel gas IMPRESSION: Findings are consistent with retained products of conception.
--- NOTE | 2024-08-06 13:08 | EDNOTE_ITS ---
<Statement entered by Jackelyn Mckenzie MD - 08/07/24 07:40> As co-signing physician, I was present and available for consult prn. I concur with the plan and care as documented by the midlevel provider. ED OB Contraction Preg RMI/HPI General Chief complaint: Abdominal Pain Stated complaint: ABD PAIN AND VAGINAL BLEEDING Time Seen by Provider: 08/06/24 12:37 Arrival date/time: 08/06/24 12:04 RME / HPI RME / HPI Narrative: 29-year-old female patient came in for evaluation regarding pelvic pain. Patient had therapeutic 2 days ago for 13 weeks , she is 6 para 5, now complaining of pelvic pain and vaginal bleeding. Patient was seen by PCP and was referred here for ultrasound of the pelvic. Patient denies any fever. Denies any dysuria. Denies any dizziness. Denies any nausea or vomiting. No medication was taken prior to arrival. Related Data Previous Rx's ?Medication ?Instructions ?Recorded acetaminophen 500 mg tablet 1,000 mg (2 x 500 mg) PO Q 6H PRN 07/09/24 (Tylenol Extra Strength) pain #30 tabs methylergonovine 0.2 mg tablet 0.2 mg PO QID 1 day #4 tabs 08/06/24 Allergies Allergy/AdvReac Type Severity Reaction Status Date / Time No Known Allergies Allergy Verified 08/06/24 12:04 Review of Systems Review of Systems Narrative Review of Systems: Review of system reviewed and within normal limits except mentioned in HPI ED Exam Narrative Physical exam: VITAL SIGNS: Reviewed. GENERAL APPEARANCE: Alert and interactive, follows commands, no acute distress, HEAD AND FACE: Non-traumatic. ENT: PERRL, pink conjunctivitis, eyelid no trauma, Mucous membrane moist. NECK: Supple, nontender, no nuchal rigidity. CHEST: No tenderness, no crepitus, no paradoxical movement, no retractions. LUNGS: Clear, well ventilated, symmetric, no rales, no wheezing, no ronchi, no stridor, good breath sounds bilaterally. HEART: Regular rate, regular rhythm, no murmur, no gallops. ABDOMEN: Soft, positive bowel sounds, nondistended, no guarding, nontender, no rebound, no masses, RECTAL: Deferred. GENITAL: Deferred. NEUROLOGICAL: Gross motor function intact sensory function intact, Appropriate for age. MUSCULOSKELETAL: low back nontender, full range of motion. EXTREMITIES: Nontender, full range of motion. SKIN: Color pink, dry, no rash, no lacerations, no abrasions, no contusions. LYMPHATICS: Deferred. Course Quality Measures none Orders Category Date Time Status Consult to Obstetrics Stat Cons 08/06/24 16:11 Ordered US transvaginal Stat Exams 08/06/24 13:06 Completed Beta HCG,Quantitative Stat Lab 08/06/24 13:45 Completed CBC [CBC] Stat Lab 08/06/24 13:45 Completed CMP [Comprehensive Metabolic Panel] Stat Lab 08/06/24 13:45 Completed PTT [Partial Thromboplastin Time] Stat Lab 08/06/24 13:45 Completed UA, C/S IF [Urinalysis, C/S if Indicated] Stat Lab 08/06/24 13:25 Completed HYDROcodone/APAP 10/325 [[place] 10/325] Med 08/06/24 15:37 Discontinued 1 tab PO X1 ONE Ibuprofen Tab [Motrin Tab] Med 08/06/24 13:06 Discontinued 800 mg PO X1 ONE Vital Signs Vital signs: Vital Signs Temperature 98.4 F 08/06/24 12:58 Pulse Rate 76 08/06/24 12:58 Respiratory Rate 18 08/06/24 12:58 Blood Pressure 128/85 H 08/06/24 12:58 Pulse Oximetry (%) 100 08/06/24 12:58 Oxygen Delivery Method Room Air 08/06/24 12:58 Vaginal Bleeding MDM Narrative MDM Narrative: 29-year-old female patient came in for evaluation regarding pelvic pain. Patient had therapeutic 2 days ago for 13 weeks , she is 6 para 5, now complaining of pelvic pain and vaginal bleeding. Patient was seen by PCP and was referred here for ultrasound of the pelvic. Patient denies any fever. Denies any dysuria. Denies any dizziness. Denies any nausea or vomiting. No medication was taken prior to arrival. Patient's workup is significant for possible retained products of conception on ultrasound. The rest of the labs unremarkable. I consulted [employer] on-call, Dr. Salmon, who examined the patient in the emergency room thank you Dr. Patient data External records reviewed:: None Clinical information provided by:: none Social determinants that could affect healthcare access:: none Patient has the following chronic illnesses:: None How is presenting disease/condition affected by chronic disease/condition?: no chronic disease Evaluation data The following diagnostics were reviewed and interpreted by me:: lab results and radiology exam(s) Lab and/or radiology exams considered but not ordered:: none Interpretation Summary: See results in [facility] Medications / Prescriptions Medications or Prescriptions considered but not ordered:: None Medication administrations:: Medication Administration History Discontinued Medications Hydrocodone Bitart/Acetaminophen (Hydrocodone/Apap 10/325 Tab) 1 tab PO X1 ONE Stop: 08/06/24 15:38 Last Admin: 08/06/24 15:56 Dose: 1 tab Documented By: JENNI Ibuprofen (Ibuprofen Tab 400 Mg Tablet) 800 mg PO X1 ONE Stop: 08/06/24 13:07 Last Admin: 08/06/24 13:38 Dose: 800 mg Documented By: JENNI Motrin and hydrocodone Consultations Consultation(s) initiated? (list below): Yes Consultation #1 (Physician, Specialty, Details): Dr. Salmon [employer] on[employer] thank you Diagnosis Vaginal Bleeding Differential Diagnosis: missed and threatened Most likely diagnosis given after review of the tests above:: History of therapeutic Admission Indicated Admission indicated?: not indicated Admission Request Was there a request for admission?: No Disposition Plan Disposition Plan: Discharge Discharge Attestation Discharge Attestation: The patient was given an opportunity to ask questions and understood the discharge instructions. Discharge instructions specifically effects, indications for sooner follow up or return to the emergency department, and the expected course of current diagnosis. Patient condition: Stable Discharge Plan Plan Patient Disposition: HOME (Self Care) Patient condition on transfer: Stable Prescriptions/Referrals Prescriptions/Med Rec: New methylergonovine 0.2 mg tablet 0.2 mg PO QID 1 Days Qty: 4 0RF No Action acetaminophen [Tylenol Extra Strength] 500 mg tablet 1,000 mg PO Q6H PRN (Reason: pain) Qty: 30 0RF Referrals: Juan Luis Amaral MD [Primary Care Provider] - In 1 week Problem List Clinical Impression: History of elective Patient/Caregiver Discharge Instructions Discharge Activity: activity as tolerated Other Activity Instructions:: Vaginal rest 2 weeks Diet Instructions: Regular diet Additional Instructions: Thank you for the opportunity for serving you today. You are stable for discharged . You are advised to: Follow-up with your PCP in 1 to 2 days Return to ED for worsening of symptoms Increase oral fluids Take medication as prescribed Print Language: Thai Stand Alone Forms: Sally Award Info., Patient Portal Info Letter PA/SHOE COVERER Supervising Physician ZANE/JOSE Supervising Physician: MD Jonah
[2024-08-06 13:36] LABS: Collection Type, Urine Clean Catch
[2024-08-06] MEDS: IBUPROFEN TAB 400 MG TABLET 800 MG PO (13:38)
[2024-08-06 13:53] LABS: Bacteria,Urine Rare; Bilirubin,Urine Negative (Negative); Blood,Urine 3+ (Negative); Clarity,Urine Clear (Clear/Hazy); Color,Urine Lt-Yellow (Lt Yel-Yel); Culture Indicated,Urine Not Indicated; Glucose, Urine Negative (Negative); Ketones,Urine Negative (Negative); Leukocyte Esterase,Urine Positive (Negative); Nitrite,Urine Negative (Negative); PH,Urine 7.5 (5.0-7.0); Protein,Urine Trace (Neg - Trace); RBC,Urine 374 /hpf (0-3); Specific Gravity,Urine 1.018 (1.001-1.035); Squamous Epithelial Cell,Urine 5 /hpf (0-5); Urobilinogen,Urine Negative mg/dL (0.0-1.0); WBC,Urine 4 /hpf (0-5)
[2024-08-06 13:55] LABS: Basophils # (Auto) 0.1 Thou/mm3 (0.0-0.2); Basophils % (Auto) 2 % (0-2.5); Eosinophils # (Auto) 0.3 Thou/mm3 (0.0-0.5); Eosinophils % (Auto) 4 % (0-10); Hematocrit 32.1 % (36.0-46.0); Hemoglobin 10.4 g/dL (12.0-16.0); Immature Granulocytes % (Auto) 0 % (0-0); Immature Granulocytes Auto 0.03 Thou/mm3 (0.00-0.00); Lymphocytes # (Auto) 1.8 Thou/mm3 (1.0-4.8); Lymphocytes % (Auto) 23 % (10-50); Mean Corpuscular HGB Conc 32.4 g/dl (31.0-37.0); Mean Corpuscular Hemoglobin 27.1 pg (25.0-35.0); Mean Corpuscular Volume 84 fL (80-100); Monocytes # (Auto) 0.3 Thou/mm3 (0.0-0.8); Monocytes % (Auto) 4 % (0-12); Neutrophils % (Auto) 66 % (37-80); Nucleated Red Blood Cell % 0 /100 WBC (0); Platelet Count 221 Thou/mm3 (140-440); RDW Standard Deviation 45.1 fL (36.4-46.3); Red Blood Count 3.84 Miln/mm3 (4.00-5.20); White Blood Count 7.6 Thou/mm3 (3.6-11.0)
[2024-08-06 14:09] LABS: Partial Thromboplastin Time 26.1 Seconds (22.0-36.0)
[2024-08-06 14:17] LABS: Alanine Aminotransferase 11 U/L (10-49); Albumin, Serum 4.2 gm/dL (3.5-5.0); Albumin/Globulin Ratio 1.4 (1.2-2.2); Alkaline Phosphatase 76 U/L (46-116); Anion Gap 8 (7-16); Aspartate Amino Transferase 11 U/L (0-34); BUN/Creatinine Ratio 13 Ratio (12-20); Bilirubin,Total 0.4 mg/dL (0.3-1.2); Blood Urea Nitrogen 8 mg/dL (9-23); Carbon Dioxide 28.1 mMol/L (20.0-31.0); Chloride 104 mMol/L (98-107); Creatinine (Component) 0.6 mg/dL (0.6-1.3); Estimated Creatinine Clearance 137.5 mL/min (>60); Glucose 119 mg/dL (74-106); Osmolality,Calculated 278 (275-295); Potassium 3.8 mMol/L (3.4-5.1); Sodium 140 mMol/L (136-145); Total Protein 7.2 gm/dL (5.7-8.2); eGFR > 60 See Note
[2024-08-06 14:39] LABS: Beta HCG,Quantitative 2535 mIU/mL (<5.0)
[2024-08-06 14:43] VITALS: BP 126/80; PULSE 85; RESP 19; TEMP 36.5; O2SAT 100
[2024-08-06] MEDS: HYDROcodone/APAP 10/325 TAB PO (15:56)
--- NOTE | 2024-08-06 17:04 | PD.GYNCONS ---
[employer] HPI Data of Consult Consult date: 08/06/24 Primary Care Provider: Juan Luis Amaral MD Consult Narrative Reason for consult: pelvic pain History of present illness: Lo is a 29yo ( x5) presenting for pelvic pain and light bleeding after having suction D&C on 08/04/24 for ETOP with [facility] at approx 13wk. She notes bleeding is only about 3 pads per day, but she has continued pelvic cramping that she cannot ignore. It makes it so she cannot lie on her back. She was seen at [facility] today and IM doctor recommended she come to ER for pelvic ultrasound to eval for POCs. No fevers/chills/foul discharge. cc:: cc: Review of Systems Review of Systems Narrative Review of Systems: Review of Systems Systems Reviewed: All systems reviewed, normal except as documented Constitutional Constitutional: Denies body ache(s), Denies chills, Denies fever(s) and Denies headache(s) ENT Ears, Nose, Mouth, and Throat: Denies headache(s) and Denies vertigo Cardiovascular Cardiovascular: Denies chest pain, Denies palpitations, Denies dyspnea and Denies syncope Respiratory Respiratory: Denies cough, Denies dyspnea Gastrointestinal Gastrointestinal: Denies nausea and Denies vomiting Neurologic Neurologic: Denies convulsions, Denies headache(s), Denies other visual disturbances, Denies syncope and Denies vertigo Past Medical History Family History OTHER FAMILY HX: Maternal GM and Maternal aunt have had breast cancer. Her mother currently has a breast lesion being worked up. Patient had a left breast partial mastectomy to treat a breast cyst. Surgical History OTHER SURGICAL HX: Partial left breast mastectomy, D&C Social History SOCIAL: Denies tobacco, ETOH, illicit drug use Past Medical History Comments PMH COMMENT: Hx of heart murmur. No current cardiac sx. Hx of syphilis treated within the past year. Hx of abnormal pap 2 years ago, hasn't had follow up pap yet Meds Home Medications and Allergies Allergies Allergy/AdvReac Type Severity Reaction Status Date / Time No Known Allergies Allergy Verified 08/06/24 12:04 Exam - [employer] Vital Signs Temp Pulse Resp BP Pulse Ox O2 Del Method 97.7 F 85 19 126/80 100 Room Air 08/06/24 14:43 08/06/24 14:43 08/06/24 14:43 08/06/24 14:43 08/06/24 14:43 08/06/24 14:43 Narrative Exam General: well developed, well nourished, no acute distress, conversant Cardiac: normal heart rate Lungs: breathing without distress Abdomen: soft, non-tender, no rebound or guarding Extremities: no pain with palpation of calves SSE: Female garment steamer present. NEFG. Very scant blood in vaginal vault. Cervix is closed. [employer] - Results Labs 08/06/24 13:45 08/06/24 13:45 Labs: Short CBC 08/06/24 Range/Units 13:45 WBC 7.6 (3.6-11.0) Thou/mm3 Hgb 10.4 L (12.0-16.0) g/dL Hct 32.1 L (36.0-46.0) % Plt Count 221 D (140-440) Thou/mm3 BMP 08/06/24 13:45 Sodium 140 Potassium 3.8 Chloride 104 Carbon Dioxide 28.1 BUN 8 L Creatinine 0.6 Glucose 119 H Calcium 9.0 Liver Function 08/06/24 Range/Units 13:45 Total Bilirubin 0.4 (0.3-1.2) mg/dL AST 11 (0-34) U/L ALT 11 (10-49) U/L Alkaline Phosphatase 76 (46-116) U/L Albumin 4.2 (3.5-5.0) gm/dL Urine 08/06/24 Range/Units 13:25 Urine Color Lt-Yellow (Lt Yel-Yel) Urine Clarity Clear (Clear/Hazy) Urine pH 7.5 H (5.0-7.0) Ur Specific [place] 1.018 (1.001-1.035) Urine Protein Trace (Neg - Trace) Urine Glucose (UA) Negative (Negative) Impressions Impression: Examination: Transvaginal ultrasound of the pelvis, complete Technique: Transvaginal sonographic images pelvis performed using gusman scale imaging Exam date and time: August 06, 2024 1519 hours INDICATIONS: Status post therapeutic 2 days ago with severe pelvic pain and vaginal bleeding FINDINGS: Uterus 11.3 x 6.6 x 9.0 cm Endometrium is thickened and heterogeneous 3.7 cm No intrauterine gestation Right ovary 2.4 cm arterial flow small follicles Left ovary obscured by bowel gas IMPRESSION: Findings are consistent with retained products of conception. Assessment and Plan Assessment and plan (1) History of elective : Status: Acute Assessment and plan: Lo is a 29yo ( x5) presenting for pelvic pain and light bleeding after having suction D&C on 08/04/24 for ETOP with [facility] at approx 13wk. Hemodynamically stable. Vitals wnl, Hgb today is same as prior to procedure- bleeding is as expected. No s/sx of infection, normal WBC count, afebrile. Cervix closed. While ultrasound suggests POCs, based on 3.7cm thickness of lining and whole clinic picture, suspect more likely small amount of residual blood clot present. Plan: -Safe for discharge home. Discussed dx with patient. -Rx methergine 0.2mg PO Q6hr x24hr to assist with expulsion of uterine clot -Patient should return to ER for fevers, chills, mylagias, foul smelling discharge, pain unrelieved by tylenol or motrin, or severe bleeding >2 pads per hour for 2 hours in a row Tiffanie Salmon MD
== END 2024-08-06 18:23 | disposition home or self-care (01) ==
PROVIDERS: Nurse Practitioner Family; Emergency Provider Emergency Medicine; PCP Family Medicine
DX: O04.6 Delayed or excessive hemorrhage following (induced) termination of pregnancy (principal)
CPT/HCPCS: 36415; 76830; 80053; 81001; 84702; 85025; 85730; 99284; A9270

== ENCOUNTER 2024-08-10 00:47 | Day surgery (SDC) | payer MEDICAID, SELFPAY ==
[2024-08-10] VITALS (11 sets, daily range): BP systolic 98–119; BP diastolic 54–76; PULSE 61–84; RESP 13–20; TEMP 36.1–36.7; O2SAT 95–98; BMI 27.4
--- NOTE | 2024-08-10 01:10 | XR_ITS ---
Examination: Pelvic ultrasound, transabdominal, complete Technique: Transabdominal ultrasound of the pelvis performed using grayscale imaging Date and time of exam: August 10, 2024 0208 hrs. Indications: Pelvic pain nausea vomiting beginning 2 weeks ago, status post therapeutic August 04, 2024 Findings: Uterus 10.2 x 6.8 x 7.5 cm Complex heterogeneous mass in the uterus 5.2 x 5.0 x 5.3 cm consistent with retained products of conception Right ovary 2.9 cm arterial flow Left ovary 3.1 cm arterial flow Impression: No intrauterine gestation Findings consistent with retained products of conception, clinical correlation advised and follow-up recommended
--- NOTE | 2024-08-10 01:11 | PD.EDRME ---
Rapid Medical Screening Exam RME Arrival date/time: 08/10/24 00:47 29-year-old female with past medical history of recent D&C on 08/04/24 for ETOP presents emergency department complaining of generalized weakness, diarrhea, and vaginal bleeding. Chief Complaint: Abdominal Pain Time Seen by Provider: 08/10/24 01:07 Vital signs: Vital Signs Temperature 97.6 F 08/10/24 01:01 Pulse Rate 76 08/10/24 01:01 Respiratory Rate 18 08/10/24 01:01 Blood Pressure 117/76 08/10/24 01:01 Pulse Oximetry (%) 97 08/10/24 01:01 Oxygen Delivery Method Room Air 08/10/24 01:01 Vital signs reviewed by provider: Yes
[2024-08-10] MEDS: METOCLOPRAMIDE 5 MG TABLET 10 MG PO (01:14)
[2024-08-10 01:31] LABS: Basophils # (Auto) 0.2 Thou/mm3 (0.0-0.2); Basophils % (Auto) 2 % (0-2.5); Eosinophils # (Auto) 0.4 Thou/mm3 (0.0-0.5); Eosinophils % (Auto) 4 % (0-10); Hematocrit 34.1 % (36.0-46.0); Hemoglobin 11.1 g/dL (12.0-16.0); Immature Granulocytes % (Auto) 0 % (0-0); Immature Granulocytes Auto 0.02 Thou/mm3 (0.00-0.00); Lymphocytes # (Auto) 2.1 Thou/mm3 (1.0-4.8); Lymphocytes % (Auto) 21 % (10-50); Mean Corpuscular HGB Conc 32.6 g/dl (31.0-37.0); Mean Corpuscular Hemoglobin 27.1 pg (25.0-35.0); Mean Corpuscular Volume 83 fL (80-100); Monocytes # (Auto) 0.6 Thou/mm3 (0.0-0.8); Monocytes % (Auto) 6 % (0-12); Neutrophils # (Auto) 6.7 Thou/mm3 (1.8-7.7); Neutrophils % (Auto) 67 % (37-80); Nucleated Red Blood Cell % 0 /100 WBC (0); Platelet Count 288 Thou/mm3 (140-440); RDW Standard Deviation 44.3 fL (36.4-46.3); Red Blood Count 4.09 Miln/mm3 (4.00-5.20)
[2024-08-10 01:52] LABS: Alanine Aminotransferase 13 U/L (10-49); Albumin, Serum 4.4 gm/dL (3.5-5.0); Albumin/Globulin Ratio 1.3 (1.2-2.2); Alkaline Phosphatase 80 U/L (46-116); Anion Gap 8 (7-16); Aspartate Amino Transferase 18 U/L (0-34); BUN/Creatinine Ratio 14 Ratio (12-20); Beta HCG,Quantitative 235 mIU/mL (<5.0); Bilirubin,Total 0.4 mg/dL (0.3-1.2); Blood Urea Nitrogen 11 mg/dL (9-23); Calcium 9.6 mg/dL (8.3-10.6); Calcium (Corrected) 9.6 mg/dL (8.5-10.1); Carbon Dioxide 25.9 mMol/L (20.0-31.0); Chloride 110 mMol/L (98-107); Creatinine (Component) 0.8 mg/dL (0.6-1.3); Estimated Creatinine Clearance 103.1 mL/min (>60); Globulin 3.4 gm/dL (2.3-3.5); Glucose 129 mg/dL (74-106); Lipase 42 U/L (12-53); Osmolality,Calculated 288 (275-295); Potassium 3.9 mMol/L (3.4-5.1); Sodium 144 mMol/L (136-145); Total Protein 7.8 gm/dL (5.7-8.2); eGFR > 60 See Note
--- NOTE | 2024-08-10 02:02 | PC.NURSE ---
Pt to ultrasound from lobby at this time.
--- NOTE | 2024-08-10 03:09 | PRELIM_ITS ---
Pelvic ultrasound (transabdominal) with Doppler. August 10, 2024 at 0208 hours Clinical history: Rule out retained products.Pelvic pain x 2 weeks. LMP 05/15/2024. No prior study is available for comparison. Findings: The uterus is enlarged, measuring 10.3 x 6.8 x 7.5 cm. There is a 5.2 x 5 x 5.3 cm avascular, heterogeneous complex mass within the uterus, which may represent retained products of conception. The endometrium is not measured on submitted images. The right ovary measures 2.9 x 2.2 x 2.3 cm. The left ovary measures 3.1 x 1.7 x 1.7 cm. Both ovaries demonstrate color flow and spectral waveforms on Doppler evaluation. There is no adnexal mass. A small amount of free fluid is seen in the pelvis. Impression: 5.2 x 5 x 5.3 cm avascular, heterogeneous complex mass within the uterus, which may represent retained products of conception. Recommend clinical correlation and followup. Report Electronically Signed By: Jose Fragoso 08/10/2024 3:08:32 AM [EST]
[2024-08-10 03:16] LABS: Collection Type, Urine Clean Catch
[2024-08-10 03:25] LABS: Bilirubin,Urine Negative (Negative); Blood,Urine 3+ (Negative); Clarity,Urine Turbid (Clear/Hazy); Color,Urine Yellow (Lt Yel-Yel); Culture Indicated,Urine Not Indicated; Glucose, Urine Negative (Negative); Ketones,Urine Negative (Negative); Leukocyte Esterase,Urine Positive (Negative); Nitrite,Urine Negative (Negative); Protein,Urine 1+ (Neg - Trace); RBC,Urine 87 /hpf (0-3); Specific Gravity,Urine 1.031 (1.001-1.035); Squamous Epithelial Cell,Urine 5 /hpf (0-5); WBC,Urine 4 /hpf (0-5)
[2024-08-10 03:28] LABS: Amphetamine/Methamp Scrn,U Negative (Negative); Barbiturate Screen,Urine Negative (Negative); Benzodiazepines Screen,Urine Negative (Negative); Benzoylecgonine Screen, Ur Negative (Negative); Fentanyl Screen,Urine Negative (Negative); Opiate Screen,Urine Negative (Negative); THC Screen,Urine Negative (Negative)
--- NOTE | 2024-08-10 03:49 | PD.EDABDPN ---
ED Abdominal Pain RME/HPI General Chief Complaint: Abdominal Pain Stated complaint: LOWER ABD PAIN, VOMITING AND SHAKY Time seen by provider: 08/10/24 01:07 Arrival date/time: 08/10/24 00:47 29-year-old A1 female with past medical history of recent D&C on 08/04/24 for ETOP at 13 weeks presents emergency department complaining of generalized weakness, diarrhea, abdominal pain, vomiting, and vaginal bleeding. Patient reports that changes greater than 4 saturated pads in 24 hours. Patient reports was recently seen on 08/06/2024 in ER and was discharged on Methergine. Patient denies any fever, dysuria, or any other associated symptom. Source: patient Mode of arrival: ambulatory Limitations: no limitations RME / HPI RME / HPI narrative: 08/10/24 00:47 29-year-old female with past medical history of recent D&C on 08/04/24 for ETOP presents emergency department complaining of generalized weakness, diarrhea, and vaginal bleeding. Related Data Previous Rx's ?Medication ?Instructions ?Recorded acetaminophen 500 mg tablet 1,000 mg (2 x 500 mg) PO Q6H PRN 07/09/24 (Tylenol Extra Strength) pain #30 tabs Allergies Allergy/AdvReac Type Severity Reaction Status Date / Time No Known Allergies Allergy Verified 08/06/24 12:04 Review of Systems Constitutional Constitutional: Denies body ache(s), Denies chills, Denies fever(s) and Reports weakness Eyes Eyes: Denies change in vision ENT Ears, Nose, Mouth, and Throat: Denies disequilibrium, Denies dizziness, Denies sore throat and Denies vertigo Cardiovascular Cardiovascular: Denies chest pain and Denies dyspnea Respiratory Respiratory: Denies chest congestion, Denies cough and Denies dyspnea Gastrointestinal Gastrointestinal: Reports abdominal pain, Reports diarrhea, Reports nausea and Reports vomiting Genitourinary Genitourinary: Reports abnormal vaginal bleeding Musculoskeletal Musculoskeletal: Denies abnormal gait and Denies arthralgias Integumentary/Breasts Skin/Breast: Denies erythema, Denies rash and Denies wounds Neurologic Neurologic: Denies abnormal gait, Denies disequilibrium, Denies dizziness, Denies vertigo and Reports weakness Past Medical History Past Medical History NEUROLOGIC: Positive Migraine; Negative Neurological Disorders, Cerebrovascular Accident, Transient Ischemic Attacks (TIA), Dementia, Alzheimer's Disease, Parkinson's Disease, Brain Tumor, Meningitis, Seizures, Epilepsy, Multiple Sclerosis, Cerebral Palsy, Amyotrophic Lateral Sclerosis (ALS/Monse Gehrig's), Guillain-Nicolaus Syndrome, Spina Bifida, Paralysis, Peripheral Neuropathy, Stein's Palsy, Subdural Hematoma, Head Trauma, Spinal Cord Injury or Traumatic Brain Injury CARDIAC: Positive Cardiac Arrhythmia and Heart Murmur; Negative Cardiac Disorders, Myocardial Infarction, Atrial Fibrillation, Angina, Coronary Artery Disease, Atherosclerotic Heart Disease, Peripheral Vascular Disease, Hypercholesterolemia, Aneurysm, Congestive Heart Failure, Congenital Heart Disease, Valvular Heart Disease, Rheumatic Fever, Cardiomyopathy, Edema, Pericarditis, Cellulitis, Deep Vein Thrombosis, Hypertension, Hypotension or Varicose Veins RESPIRATORY: Negative Chronic Obstructive Pulmonary Disease (COPD), Asthma, Bronchitis, Emphysema, Pneumonia, Pulmonary Fibrosis, Cystic Fibrosis, Tuberculosis, Pulmonary Embolism, Pulmonary Edema or Sleep Apnea GASTROINTESTINAL: Negative Gastrointestinal Disorders, Hepatitis, Cirrhosis, Pancreatitis, Celiac Disease, Gall Bladder Disease, Gastrointestinal Bleed, Esophageal Varices, Heath's Esophagus, Colitis, Ulcerative Colitis, Diverticulitis, Diverticulosis, Ulcer, Colorectal Cancer, Irritable Bowel, Crohn's Disease, Obstructive Bowel, Hiatal Hernia, Hemorrhoids, Gastroesophageal Reflux Disease or Obesity GENITOURINARY: Negative Genitourinary Disorders, Renal Disease, Kidney Stones, Polycystic Kidney Disease, Neurogenic Bladder, Inguinal Hernia, Dialysis, Prostate Cancer or Benign Prostatic Hyperplasia REPRODUCTIVE: Positive Gonorrhea, Previous Pregnancies and Syphilis; Negative Breast Cancer, Endometriosis, Genital Herpes, Pelvic Inflammatory Disease, Testicular Cancer or Uterine Prolapse MUSCULOSKELETAL: Negative Musculoskeletal Disorders, Muscular Dystrophy, Myasthenia Gravis, Marfan's Syndrome, Bone Cancer, Arthritis, Rheumatoid Arthritis, Osteoporosis, Degenerative Disk Disease, Gout, Scoliosis, Carpal Tunnel Syndrome, Fibromyalgia, Fractures, Degenerative Joint Disease, Osteomyelitis or Poliovirus ENT: Negative Cataracts, Glaucoma, Blind, Retinal Detachment, Macular Degeneration, Ear Infection, Deafness, Head Trauma or Eye Prosthesis ENDOCRINE: Negative Endocrine Disorders, Diabetes Mellitus Type 1, Diabetes Mellitus Type 2, Hypoglycemia, Stephanie's Syndrome, Gino's Disease, Hyperthyroidism, Hypothyroidism, Parathyroid Disease, Pituitary Disease, Systemic Lupus Erythematosus, Syndrome of Inappropriate Antidiuretic Hormone (SIADH), Adrenal Disease or Graves' Disease HEMATOLOGIC: Positive Blood Disorders and Anemia; Negative Leukemia, Hemophilia, Thalassemia, Sickle Cell Disease or Clotting Problems PSYCHO/SOCIAL: Positive Bipolar Disorder and Depression; Negative Psychiatric Problems, Schizophrenia, Recreational Drug Use, Depression, Anxiety, Self-Mutilation, Attention Deficit Disorder, Attention Deficit Hyperactivity Disorder, Post Traumatic Stress Disorder or Eating Disorder OTHER HISTORY: Positive Hospitalization and Blood Transfusions; Negative Autoimmune Disease, Down Syndrome, Autism, Developmental Delay, Shingles, Falls, Blood Transfusion Reaction, Anesthesia Reactions, Organ Transplant, Chemotherapy, Radiation Therapy, Hyperbaric Therapy, MRSA, VRSA, Vancomycin-Resistant Enterococci, Human Immunodeficiency Virus (HIV), Chicken Pox, Measles, Mumps, Rubella (Croatian Measles), Pertussis, Clostridium Difficile, Cancer, Breast Cancer, Cervical Cancer, Colorectal Cancer, Lung Cancer, Ovarian Cancer, Prostate Cancer or Testicular Cancer Family History FAMILY HISTORY: Positive Family Respiratory Disorders and Family Cancer; Negative Family Psychiatric Problems, Family Cardiac Disorders, Family Gastrointestinal Problems, Family Surgery or Family Anesthesia Reaction Surgical History SURGICAL: Positive Mastectomy; Negative Cardiac Surgery, Open Heart Surgery, Coronary Artery Bypass Graft, Valve Replacement, Vascular Surgery, Coronary Stent, Cardiac Catheterization, Pacemaker, Angiogram, Auto Implanted Cardiovert Defib, Carotid Endarterectomy, Endocrine Surgery, Thyroidectomy, Ear Surgery, Tympanostomy Tube, Eye Surgery, Nose Surgery, Oral Surgery, Tonsillectomy, Adenoidectomy, Cochlear Implant, Corneal Transplant, Throat Surgery, Abdominal Surgery, Tracheostomy, Gastric Bypass Surgery, Gastrostomy, Bowel Surgery, Nephrectomy, Transurethral Resection, Joint Replacement, Amputation, Open Reduction Internal Fixation, Arthroscopy, Neurologic Surgery, Brain Shunt, Lumpectomy, Hysterectomy, Tubal Ligation, Section, Vasectomy or Organ Transplant Social History SMOKING STATUS: Never smoker SECOND HAND EXPOSURE: No SUBSTANCE USE: does not use ED Exam General Limitations: Present no limitations General appearance: Present alert and in no apparent distress Head Head exam: Present atraumatic Eye Eye exam: Present normal appearance, PERRL and EOMI ENT ENT exam: Present normal exam, normal oropharynx and mucous membranes moist Neck Neck exam: Present normal inspection, full ROM and trachea midline Chest Chest inspection: Present normal inspection and symmetric chest wall rise Respiratory Respiratory exam: Present normal lung sounds bilaterally Cardiovascular Cardiovascular exam: Present regular rate, normal rhythm and normal heart sounds Abdominal Exam Abdominal exam: Present soft and normal bowel sounds Extremities Exam Extremities exam: Present normal inspection and full ROM Back Exam Back exam: Present normal inspection and full ROM Neurological Exam Neurological exam: Present alert, oriented X3 and CN II-XII intact Psychiatric Psychiatric exam: Present normal affect and normal mood Skin Skin exam: Present warm, dry, intact and normal color Course Quality Measures none Orders Category Date Time Status Bedside Influenza A&B Antigen Test NOW Care 08/10/24 01:11 Completed COVID-19 Screening Questionnaire NOW Care 08/10/24 05:10 Active Decision to Admit X1 Care 08/10/24 05:10 Active Insert IV NOW Care 08/10/24 05:10 Active NPO NOW Care 08/10/24 05:10 Active Diet NPO (NOW) Diet 08/10/24 05:10 Active US pelvic complete Stat Exams 08/10/24 01:10 Taken Beta HCG,Quantitative Stat Lab 08/10/24 01:18 Completed CBC Stat Lab 08/10/24 01:18 Completed CMP [Comprehensive Metabolic Panel] Stat Lab 08/10/24 01:18 Completed Drug Screen,Urine Stat Lab 08/10/24 02:54 Completed Lipase Stat Lab 08/10/24 01:18 Completed Urinalysis, C/S if Indicated Stat Lab 08/10/24 02:54 Completed Metoclopramide [Reglan] Med 08/10/24 01:11 Discontinued 10 mg PO X1 ONE Vital Signs Vital signs: Vital Signs Temperature 97.6 F 08/10/24 01:01 Pulse Rate 76 08/10/24 01:01 Respiratory Rate 18 08/10/24 01:01 Blood Pressure 117/76 08/10/24 01:01 Pulse Oximetry (%) 97 08/10/24 01:01 Oxygen Delivery Method Room Air 08/10/24 01:01 97% room air within normal limits Abdominal Pain MDM MDM Narrative MDM Narrative:: 29-year-old A1 female with past medical history of recent D&C on 08/04/24 for ETOP at 13 weeks presents emergency department complaining of generalized weakness, diarrhea, abdominal pain, vomiting, and vaginal bleeding. Patient reports that changes greater than 4 saturated pads in 24 hours. Patient reports was recently seen on 08/06/2024 in ER and was discharged on Methergine. Patient denies any fever, dysuria, or any other associated symptom. CBC was unremarkable for any leukocytosis or anemia. Hemoglobin 11.1 previous 10.4. CMP was unremarkable for any gross electrolyte abnormalities or elevated LFTs. Beta-hCG 203 previous 2535. Urinalysis was unremarkable. Ultrasound pelvis findings: Enlarged uterus measuring 10.3 x 6.8 x 7.5 cm. There is a 5.2 x 5 x 5.3 cm avascular heterogenous complex mass within the uterus which may represent retained products of conception. Both ovaries demonstrate color flow and spectral waveforms on Doppler evaluation. There is no adnexal mass. A small amount of free fluid is seen in the pelvis. Patient appears nontoxic and is hemodynamically stable. Concern for retained products on-call LUBRICATING ENGINEER Dr Tee consulted and agrees to come see patient. Dr Tee agrees to admit patient for D&C. Patient stable at time of admission. Patient data External records reviewed:: [facility] previous records Clinical information provided by:: patient Social determinants that could affect healthcare access:: none Patient has the following chronic illnesses:: See chart How is presenting disease/condition affected by chronic disease/condition?: uneffected by Evaluation data The following diagnostics were reviewed and interpreted by me:: lab results and radiology exam(s) Lab and/or radiology exams considered but not ordered:: Ordered Interpretation Summary: Interpreted by me Medications / Prescriptions Medications or Prescriptions considered but not ordered:: Ordered Medication administrations:: Medication Administration History Discontinued Medications Metoclopramide HCl (Metoclopramide 5 Mg Tablet) 10 mg PO X1 ONE Stop: 08/10/24 01:12 Last Admin: 08/10/24 01:14 Dose: 10 mg Documented By: KF Given Consultations Consultation(s) initiated? (list below): Yes Consultation #1 (Physician, Specialty, Details): Dr. Tee occupational health manager OBGYN Time: 03:50 Diagnosis Differential diagnosis abdominal pain: abdominal pain and gastroenteritis Most likely diagnosis given after review of the tests above:: Retained products of conception Admission Indicated Admission indicated?: indicated Admission Request Was there a request for admission?: Yes Admission Attestation Admission request attestation: Discussed case with [Dr. Tee] from Hospitalist service regarding admission. Discussed patients ED course, exam findings, labs, and radiology results. The Dr. Tee [agrees] to accept the patient for admission. Disposition Plan Disposition Plan: Admit Discharge Plan Plan Patient Disposition: Admit Acute Care w/in Hospital Disposition Comment: Stable Prescriptions/Referrals Prescriptions/Med Rec: No Action acetaminophen [Tylenol Extra Strength] 500 mg tablet 1,000 mg PO Q6H PRN (Reason: pain) Qty: 30 0RF Referrals: Juan Luis Amaral MD [Primary Care Provider] - In 1 week Problem List Clinical Impression: Retained products of conception Patient/Caregiver Discharge Instructions Print Language: Haitian Stand Alone Forms: Sally Award Info., Patient Portal Info Letter PA/ECHOCARDIOGRAPHY TECH Supervising Physician PA/ECHOCARDIOGRAPHY TECH Supervising Physician: Dr. Mueller
--- NOTE | 2024-08-10 05:18 | PD.GYNCONS ---
REINFORCING STEEL ERECTOR HPI Data of Consult Consult date: 08/10/24 Requesting Physician: Sukh Salazar Primary Care Provider: Juan Luis Amaral MD Family Provider: [facility] Consult Narrative Reason for consult: vaginal bleeding and pelvic pain (Abdominal pain) History of present illness: The patient is a 29-year-old history of vaginal delivery x 5 in the past. She re- presents to the emergency room complaining of continued abdominal pain bleeding approximately 4 pads in the last 24 hours and having an odor. Patient also reports diarrhea. She denies any fevers. She had an ETOP at [facility] 08/04/2024 for a 13 week IUP. She presented to the emergency room with continued bleeding to on 08/06/24 and was evaluated by the hide selector on-call. She was sent home with p.o. Methergine. Patient states she took all her medications. She has continued to have cramping and pain. An ultrasound reveals a 5.5 cm thickened stripe suggestive of retained products of conception vs blood clots.. Patient's quantitative hCG has dropped to 234. As it is her second visit to the ER in the last couple of days and conservative management failed and her stripe appears to be getting more complex and thicker patient agrees to evaluation in the OR in the form of a suction dilation and curettage. cc:: cc: Review of Systems Constitutional Constitutional: Reports as per HPI and Reports chills Gastrointestinal Gastrointestinal: Reports cramping and Reports diarrhea Genitourinary Genitourinary: Reports abnormal vaginal bleeding and Reports vaginal odor Meds Home Medications and Allergies Allergies Allergy/AdvReac Type Severity Reaction Status Date / Time No Known Allergies Allergy Verified 08/06/24 12:04 Exam - REINFORCING STEEL ERECTOR Vital Signs Temp Pulse Resp BP Pulse Ox O2 Del Method 97.8 F 68 17 119/72 98 Room Air 08/10/24 03:59 08/10/24 03:59 08/10/24 03:59 08/10/24 03:59 08/10/24 03:59 08/10/24 03:59 Narrative Exam Patient is alert and oriented x 3 she is cooperative. Slightly anxious. Constitutional Constitutional: mild distress and cooperative Routine Abdominal Exam Abdominal: Present soft and guarding Detailed Pelvic Exam Cervix: Present tenderness and discharge Uterus: Present enlarged, tenderness and mobile REINFORCING STEEL ERECTOR - Results Labs 08/10/24 01:18 08/10/24 01:18 Labs: Short CBC 08/10/24 Range/Units 01:18 WBC 10.0 (3.6-11.0) Thou/mm3 Hgb 11.1 L (12.0-16.0) g/dL Hct 34.1 L (36.0-46.0) % Plt Count 288 D (140-440) Thou/mm3 BMP 08/10/24 01:18 Sodium 144 Potassium 3.9 Chloride 110 H Carbon Dioxide 25.9 BUN 11 Creatinine 0.8 Glucose 129 H Calcium 9.6 Liver Function 08/10/24 Range/Units 01:18 Total Bilirubin 0.4 (0.3-1.2) mg/dL AST 18 (0-34) U/L ALT 13 (10-49) U/L Alkaline Phosphatase 80 (46-116) U/L Albumin 4.4 (3.5-5.0) gm/dL Urine 08/10/24 Range/Units 02:54 Urine Color Yellow (Lt Yel-Yel) Urine Clarity Turbid A (Clear/Hazy) Urine pH 6.0 (5.0-7.0) Ur Specific Freeborn 1.031 (1.001-1.035) Urine Protein 1+ A (Neg - Trace) Urine Glucose (UA) Negative (Negative) Imaging and Cardiology US - abdomen: Status: image reviewed by me Assessment and Plan Assessment and plan (1) Retained products of conception: Status: Acute (2) History of elective : Status: Acute (3) Post-op pain: Status: Acute Additional Assessment & Plan Additional Plan: Patient presents to the emergency room with continued cramping bleeding and an abnormal odor after a 13-week termination 08/04/2024. As her ultrasound reveals a complex heterogeneous tissue present doubled in size compared to 4 days ago and patient has continued symptoms we will proceed with the evaluation in the OR in the form of a suction dilation and curettage. Patient was consented for the risks of the procedure including the risk of bleeding, infection, uterine perforation, and potential scarring of her uterine cavity and desires to proceed with surgery at this point. All consents were signed and all questions answered. She was added onto the OR schedule for today. Her blood type is O+.
--- NOTE | 2024-08-10 12:19 | SUR.PHASEI ---
Pt. arrived to recovery via gurney, eyes closed, oral airway in place, VSS, lung sounds clear, equal expansion trace., pt. receiving 8 liters 02 via oxymask, marizol-pad in place, no active bleeding noted. Report received from Jose MEJIA and Ronnie COSTA.
--- NOTE | 2024-08-10 12:24 | SUR.PHASEI ---
1224: Pt. AAOx4, vitals stable, breathing unlabored, no complaint of pain or nasuea, peripad CDI, no active bleed noted, report received from Dora MEJIA.
--- NOTE | 2024-08-10 12:34 | PD.GYNPROC ---
Operative Note - POCKETED SPRING MACHINE OPERATOR Procedure Date of procedure: 08/10/24 Procedure Performed: Suction dilation and curettage Indication: Suspected retained products of conception Pre-Op diagnosis: 1. Postop day #6 status post 13-week ETOP 2. Continued vaginal bleeding with suspected retained products of conception on ultrasound Post-Op diagnosis: Same Anesthesia type: General Procedure description: After obtaining informed consent, the patient was brought back to the operating room and general anesthesia via LMA was administered. She was then prepped prepped and draped in the dorsal lithotomy position using candy cane stirrups in a normal sterile fashion. Her bladder was emptied with an in and out catheter. Patient was given 2 g of Ancef by anesthesia. A weighted speculum was inserted to the patient's vagina and the anterior lip of the cervix grasped with a single-tooth tenaculum at the 12 o'clock position. The patient's cervix was then gently dilated using Hegar dilators to a size 8. A size 7 curved suction curette was introduced to the fundus of the uterus and the suction activated. The suction curette was gently rotated to clear the uterus of any products of conception, clots, and debris. The suction curette was removed the patient's endometrium underwent a brisk endometrial curettage using a wide loop endometrial curette. The scrapings were sent down to pathology. The suction curette was introduced one more time in the uterus cleared of any remaining clots and debris. At the end of the procedure the tenaculum was removed and the tenaculum site noted to be hemostatic after placement of silver nitrate on the cervix. All instrumentation was then removed from the patient's vagina and the patient woken up and sent to recovery area in stable condition. Fluids: crystalloid Fluid amount (mL): 300 Urine output (mL): 300 Specimen: other (Products of conception debris and blood clots) Implants: None Estimated blood loss (ml): 100 Findings: Small to moderate amounts of old blood clots and possible debris Narrative: Patient went to recovery area in stable condition Surgical staff Operation Date: 08/10/24 12:15 Case Staff SPLITTING MACHINE OPERATOR: WILLIAM TURNER. SPLITTING MACHINE OPERATOR: Ronnie Harman Diagnosis Discharge Diagnosis (1) Retained products of conception: Status: Acute (2) History of elective : Status: Acute (3) Post-op pain: Status: Acute (4) Post-operative state: Status: Acute Problem details: Status post suction D&C 08/10/2024 Problem List Completed Was Problem List Reviewed/Reconciled?: Yes
--- NOTE | 2024-08-10 13:25 | SUR.PHASEII ---
1325: Pt. AAOx4, vitals stable, breathing unlabored, no complaint of pain or nasuea, peripad CDI, no active bleed noted, pt. tolerated sips of water well, pt. ambulated to wheelchair with steady gait and no assist, no complications. Gave discharge instructions to the pt. and her ride, both verbalized understanding and had no further questions.
== END 2024-08-10 13:25 | disposition home or self-care (01) ==
LOC: SERX 05:12 → S2EX 06:14
PROVIDERS: Emergency Provider Emergency Medicine; PCP Family Medicine; Referring Provider Obstetrics & Gynecology; Visit Provider Obstetrics & Gynecology
PROC: (CPT 58120; principal; 2024-08-10 12:00)
DX: O03.4 Incomplete spontaneous abortion without complication (principal); G89.18 Other acute postprocedural pain
CPT/HCPCS: 59820; 36415; 76856; 80053; 80307; 81001; 83690; 84702; 85025; 87400; 99285; A4217; J0131; J0690; J1100; J1885; J2250; J2405; J2704; J3010; A9270

== ENCOUNTER 2024-08-27 14:09 | Emergency (ER) | payer MEDICAID, SELFPAY ==
[2024-08-27 14:30] VITALS: BP 136/88; PULSE 78; RESP 16; TEMP 36.5; O2SAT 98; BMI 25.2
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
[2024-08-27] MEDS: HYDROcodone/APAP 5/325 TABLET 1 TAB PO (15:08)
== END 2024-08-27 16:53 | disposition home or self-care (01) ==
PROVIDERS: Emergency Provider Emergency Medicine; PCP Family Medicine
DX: S43.402A Unspecified sprain of left shoulder joint, initial encounter (principal); M54.2 Cervicalgia; R51.9 Headache, unspecified; V49.9XXA Car occupant (driver) (passenger) injured in unspecified traffic accident, initial encounter; Y92.410 Unspecified street and highway as the place of occurrence of the external cause
CPT/HCPCS: 70450; 72125; 73030; 99284; A9270

== ENCOUNTER 2024-08-28 19:46 | Emergency (ER) | payer MEDICAID, SELFPAY ==
[2024-08-28 19:49] VITALS: BP 125/86; PULSE 143; RESP 22; O2SAT 100
[2024-08-28 19:52] VITALS: PULSE 136; RESP 18; O2SAT 98; BMI 26.6
[2024-08-28 20:02] VITALS: PULSE 126; RESP 24; O2SAT 100
[2024-08-28 20:59] VITALS: PULSE 112; RESP 18; O2SAT 98
--- NOTE | 2024-08-28 21:08 | EKG_ITS ---
[facility] Test Date: 2024-08-28 Pat Name: XANDER VITALE Department: Room: - Gender: Female Information Writer: : 1995 Requested By: Crescencio Figueroa Order Number: [id number] Reading MD: Crescencio Figueroa Measurements Intervals [place] Rate: 101 P: 60 ID: [id number] QRS: 71 QRSD: 77 T: -19 QT: 334 QTc: 434 Interpretive Statements SINUS TACHYCARDIA NONSPECIFIC ST & T-WAVE ABNORMALITY Compared to ECG 04/25/2024 14:16:46 T-wave abnormality now present Sinus rhythm no longer present Sinus arrhythmia no longer present /store/S0/[id number].pdf
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
[2024-08-28 21:42] LABS: Amphetamine/Methamp Scrn,U Positive (Negative); Barbiturate Screen,Urine Negative (Negative); Benzodiazepines Screen,Urine Negative (Negative); Benzoylecgonine Screen, Ur Negative (Negative); Fentanyl Screen,Urine Negative (Negative); Opiate Screen,Urine Positive (Negative); THC Screen,Urine Negative (Negative)
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
--- NOTE | 2024-08-28 23:07 | PC.NURSE ---
I SPOKE WITH LIZ FROM [employer] AND THEY ARE GOING TO SEND A OFFICER OUT TO SPEAK WITH THIS PT.
[2024-08-28] MEDS: LORazepam 0.5 MG TABLET PO (23:22)
--- NOTE | 2024-08-29 04:44 | EDNOTE_ITS ---
ED Overdose RME/HPI General Chief Complaint: Overdose Stated Complaint: POSSIBLE POISONING Time Seen by Provider: 08/28/24 20:07 Arrival date/time: 08/28/24 19:46 RME / HPI RME / HPI Narrative: DR. ANTWAN VALDES ED EVALUATION: Patient is a 29-year-old female without significant medical history who presents emergency department stating that she thinks someone poisoned her. Patient went to a alliance party about 24 hours ago where she met multiple new people. When Pt eventually got home she was unable to sleep and developed some symptoms such as tingling in the hands and feet and she was unable to sleep all night and all day long today. Patient developed the paresthesias with mild resting dyspnea as well as feeling anxious and unwell. Patient denies chest pain. Patient states her mom gave her a blood pressure cuff and that her heart rate has been up-and-down all day long. At 1 point at home her heart rate was 189 however here in the ER is 112. Patient denies intentionally taking methamphetamine. She also states that she has never taken an opiate, however I see that she was recently prescribed [place]'s after an elective AB. No further medical complaints. Related Data Previous Rx's ?Medication ?Instructions ?Recorded acetaminophen 500 mg tablet 1,000 mg (2 x 500 mg) PO Q 6H PRN 07/09/24 (Tylenol Extra Strength) pain #30 tabs hydrocodone 5 mg-acetaminophen 325 1 tab PO BID PRN pa in #10 tabs 08/27/24 mg tablet Allergies Allergy/AdvReac Type Severity Reaction Status Date / Time No Known Allergies Allergy Verified 08/27/24 14:14 Review of Systems Review of Systems Systems Reviewed: All systems reviewed, normal except as documented Narrative Review of Systems: GEN: No fever, no chills, no weight loss, + insomnia (see HPI) EYES: No discharge, no visual changes, no pain HEENT: No ear pain, no congestion, no sore throat PULM: No shortness of breath, no cough, no congestion CV: No chest pain, + mild resting dyspnea on exertion, no palpitations GI: No nausea, no vomiting, no diarrhea, no pain, no constipation : No frequency, no urgency and no dysuria MUSC/SKEL: No joint pain, no back pain SKIN: No rash PSYCH: No hallucinations, no depression, + anxiety HEME/LYMPH: No easy bleeding or bruising tendencies NEURO: No weakness, no headache, + tingling in the hands and feet/ paresthesias (see HPI) Past Medical History Past Medical History NEUROLOGIC: Positive Migraine CARDIAC: Positive Cardiac Arrhythmia and Heart Murmur REPRODUCTIVE: Positive Previous Pregnancies and Syphilis HEMATOLOGIC: Positive Blood Disorders and Anemia PSYCHO/SOCIAL: Positive Bipolar Disorder and Depression OTHER HISTORY: Positive Hospitalization, Blood Transfusions and Anesthesia Reactions Family History FAMILY HISTORY: Positive Family Respiratory Disorders and Family Cancer Surgical History SURGICAL: Positive Mastectomy Social History SMOKING STATUS: Never smoker SECOND HAND EXPOSURE: No SUBSTANCE USE: opiates and methamphetamine ED Exam Narrative Physical exam: GENERAL APPEARANCE:? alert and oriented x 4, well-developed, well-nourished, no acute distress. Patient is mildly anxious. HEENT: Normocephalic, atraumatic; pupils equal, round, reactive to light; EOMI; mucous membranes pink, moist; oropharynx clear NECK: Supple LUNGS: CTABL; no wheezes, no rales, no rhonchi HEART: Resting regular tachycardia without rubs or gallops; no murmurs ABDOMEN: non distended; normal BS;? soft, no tenderness, no guarding, no rebound; no masses, no organomegaly, no hernia?? BACK:? no CVA tenderness EXTREMITIES:? atraumatic; no edema NEUROLOGIC: awake; alert and oriented x4; cranial nerves II-XII grossly intact; no focal sensory or motor deficits PSYCHIATRIC:? appropriate mood and affect SKIN: warm, dry, normal color; no rashes Course Quality Measures none Orders Category Date Time Status EKG (ED ONLY) *Do not use* NOW Care 08/28/24 21:08 Completed EKG (ED Only) Stat Exams 08/28/24 21:08 Draft Drug Screen,Urine Stat Lab 08/28/24 20:35 Completed LORazepam [Ativan] Med 08/28/24 23:03 Discontinued 0.5 mg PO X1 ONE Vital Signs Vital signs: Vital Signs Pulse Rate 143 H 08/28/24 19:49 Respiratory Rate 22 H 08/28/24 19:49 Blood Pressure 125/86 H 08/28/24 19:49 Pulse Oximetry (%) 100 08/28/24 19:49 Oxygen Delivery Method Room Air 08/28/24 19:49 Overdose MDM Narrative MDM Narrative:: Will order Ativan 0.5 mg p.o. for now and patient to follow-up with primary care doctor within the next several days Police were called but patient left before the police arrived. Patient data External records reviewed:: [facility] previous records (Reviewed last ED visit dated 08/27/24 discharged with the following: Sprain of left shoulder) Clinical information provided by:: patient Social determinants that could affect healthcare access:: substance use (opiates and methamphetamine) Patient has the following chronic illnesses:: Migraines and bipolar disorder How is presenting disease/condition affected by chronic disease/condition?: exacerbated by Evaluation data The following diagnostics were reviewed and interpreted by me:: lab results and EKG tracing(s) (EKG#1: EKG at 2120 hours. Interpreted by me: sinus tachycardia, rate 101, no STEMI) Lab and/or radiology exams considered but not ordered:: none Interpretation Summary: Tested positive for opiates and methamphetamine. Medications / Prescriptions Medications or Prescriptions considered but not ordered:: none Medication administrations:: Medication Administration History Discontinued Medications Lorazepam (Lorazepam 0.5 Mg Tablet) 0.5 mg PO X1 ONE Stop: 08/28/24 23:04 Last Admin: 08/28/24 23:22 Dose: 0.5 mg Documented By: KF see above Consultations Consultation(s) initiated? (list below): No Diagnosis Overdose Differential Diagnosis: poisoning by opiate or related narcotic, drug overdose and other (Anxiety reaction, Methamphetamine use) Most likely diagnosis given after review of the tests above:: Anxiety reaction Methamphetamine use Admission Indicated Admission indicated?: not indicated Admission Request Was there a request for admission?: No Disposition Plan Disposition Plan: Discharge Discharge Attestation Discharge Attestation: The patient and all family members were given an opportunity to ask questions and understood the discharge instructions. Discharge instructions specifically effects, indications for sooner follow up or return to the emergency department, and the expected course of current diagnosis. Patient condition: Stable Discharge Plan Plan Patient Disposition: HOME (Self Care) Disposition Comment: Stable for discharge Patient condition on transfer: Stable Prescriptions/Referrals Prescriptions/Med Rec: No Action acetaminophen [Tylenol Extra Strength] 500 mg tablet 1,000 mg PO Q6H PRN (Reason: pain) Qty: 30 0RF hydrocodone-acetaminophen 5-325 mg tablet 1 tab PO BID MDD 10mg PRN (Reason: pain) Qty: 10 0RF Referrals: Juan Luis Amaral MD [Primary Care Provider] - In 1 week Problem List Clinical Impression: Anxiety reaction, Methamphetamine use Patient/Caregiver Discharge Instructions Discharge Activity: activity as tolerated Education Materials: Understanding Methamphetamine ..., ED Anxiety Reaction Additional Instructions: Please return to the emergency department if you have any worsening or any further medical problems. Otherwise you should follow-up with your primary care doctor within the next several days Print Language: Northern Irish Stand Alone Forms: Sally Award Info., Patient Portal Info Letter
== END 2024-08-28 23:28 | disposition home or self-care (01) ==
PROVIDERS: Physician Assistant; Emergency Provider Emergency Medicine; PCP Family Medicine
DX: F41.1 Generalized anxiety disorder (principal); F15.90 Other stimulant use, unspecified, uncomplicated; R00.0 Tachycardia, unspecified
CPT/HCPCS: 80307; 93005; 99283; A9270

== ENCOUNTER 2024-09-03 07:25 | Emergency (ER) | payer MEDICAID, SELFPAY ==
[2024-09-03 07:41] VITALS: BP 117/72; PULSE 89; RESP 18; TEMP 36.8; O2SAT 95; BMI 26.9
--- NOTE | 2024-09-03 07:47 | XR_ITS ---
Examination: Pelvic ultrasound, transabdominal, complete Technique: Transabdominal ultrasound of the pelvis performed using grayscale imaging Date and time of exam: September 03, 2024 0837 hours INDICATIONS: Status post medical August 04, 2024 vaginal bleeding beginning 4 days ago FINDINGS: Uterus 9.9 cm, free fluid in the endometrium and endometrial stripe 1.0 cm No intrauterine gestation Right ovary 3.0 cm arterial flow small follicles Left ovary 3.0 cm arterial flow 19 mm follicle IMPRESSION: Recommend transvaginal pelvic sonography follow-up to best exclude retained products of conception
--- NOTE | 2024-09-03 07:50 | PD.EDRME ---
Rapid Medical Screening Exam RME Arrival date/time: 09/03/24 07:25 29-year-old female presents to the emergency department today stating she is passing large clots from her vagina. Patient had D&C last month. Chief Complaint: Vaginal Bleeding Time Seen by Provider: 09/03/24 07:29 Vital signs: Vital Signs Temperature 98.3 F 09/03/24 07:41 Pulse Rate 89 09/03/24 07:41 Respiratory Rate 18 09/03/24 07:41 Blood Pressure 117/72 09/03/24 07:41 Pulse Oximetry (%) 95 09/03/24 07:41 Oxygen Delivery Method Room Air 09/03/24 07:41
[2024-09-03] MEDS: ACETAMINOPHEN 500 MG TABLET 1000 MG PO (08:20)
--- NOTE | 2024-09-03 08:21 | PD.EDVAGBL ---
ED OB Contraction Preg RMI/HPI General Chief complaint: Vaginal Bleeding Stated complaint: LOWER ABD PAIN, VAG BLEEDING Time Seen by Provider: 09/03/24 07:29 Arrival date/time: 09/03/24 07:25 RME / HPI RME / HPI Narrative: 09/03/24 07:25 29-year-old female presents to the emergency department today stating she is passing large clots from her vagina. Patient had D&C last month. DR. MCKENZIE MAIN ED EVALUATION: 29 year old female presents to the Emergency Department with complaints of brownish vaginal discharge and passing a large brownish gusman clot. Patient reports recent on the 08/04/24 and D&C on 08/10/24. No other symptoms reported at this time. Denies foul smelling vaginal discharge, denies itching or burning. Denies urinary symptoms. Related Data Previous Rx's ?Medication ?Instructions ?Recorded acetaminophen 500 mg tablet 1,000 mg (2 x 500 mg) PO Q6H PRN 07/09/24 (Tylenol Extra Strength) pain #30 tabs hydrocodone 5 mg-acetaminophen 325 1 tab PO BID PRN pain #10 tabs 08/27/24 mg tablet Allergies Allergy/AdvReac Type Severity Reaction Status Date / Time No Known Allergies Allergy Verified 08/27/24 14:14 Review of Systems Review of Systems Systems Reviewed: All systems reviewed, normal except as documented Narrative Review of Systems: GEN: No fever, no chills, no weight loss EYES: No discharge, no visual changes, no pain HEENT: No ear pain, no congestion, no sore throat PULM: No shortness of breath, no cough, no congestion CV: No chest pain, no dyspnea on exertion, no palpitations GI: No nausea, no vomiting, no diarrhea, no pain, no constipation : No frequency, no urgency and no dysuria + vaginal bleeding MUSC/SKEL: No joint pain, no back pain SKIN: No rash PSYCH: No hallucinations, no depression HEME/LYMPH: No easy bleeding or bruising tendencies NEURO: No weakness, no headache Past Medical History Past Medical History NEUROLOGIC: Positive Migraine CARDIAC: Positive Cardiac Arrhythmia and Heart Murmur REPRODUCTIVE: Positive Gonorrhea, Previous Pregnancies and Syphilis HEMATOLOGIC: Positive Blood Disorders and Anemia PSYCHO/SOCIAL: Positive Bipolar Disorder and Depression OTHER HISTORY: Positive Hospitalization, Blood Transfusions and Anesthesia Reactions Family History FAMILY HISTORY: Positive Family Respiratory Disorders and Family Cancer Surgical History SURGICAL: Positive Mastectomy Social History SMOKING STATUS: Never smoker SECOND HAND EXPOSURE: No SUBSTANCE USE: opiates and methamphetamine ALCOHOL: Never ED Exam Narrative Physical exam: GENERAL APPEARANCE: alert and oriented x 4, well-developed, well-nourished, no acute distress VITALS: All vitals were reviewed and the pulse ox is 95% on room air, which is normal according to my interpretation. HEENT: Normocephalic, atraumatic; pupils equal, round, reactive to light; EOMI; mucous membranes pink, moist; oropharynx clear NECK: Supple LUNGS: CTABL; no wheezes, no rales, no rhonchi HEART: Regular rate, regular rhythm; normal S1, S2; no murmurs ABDOMEN: non distended; normal BS; soft, no tenderness, no guarding, no rebound; no masses, no organomegaly, no hernia : Pelvis exam done shows normal cervix, some little brownish discharge from the vaginal vault, tender right over the uterus, no adnexal tenderness BACK: no CVA tenderness EXTREMITIES: atraumatic; no edema NEUROLOGIC: awake; alert and oriented x4; cranial nerves II-XII grossly intact; no focal sensory or motor deficits PSYCHIATRIC: appropriate mood and affect SKIN: warm, dry, normal color; no rashes Course Quality Measures none Orders Category Date Time Status US pelvic complete Stat Exams 09/03/24 07:47 Completed US transvaginal Stat Exams 09/03/24 10:01 Completed Antibody Identification Stat Lab 09/03/24 08:25 Completed CBC Stat Lab 09/03/24 08:25 Completed Chlamydia/GC/TV - PCR Stat Lab 09/03/24 08:31 Completed Comprehensive Metabolic Panel Stat Lab 09/03/24 08:25 Completed HCG,Qualitative Serum Stat Lab 09/03/24 08:25 Completed Partial Thromboplastin Time Stat Lab 09/03/24 08:25 Completed Prothrombin Time with INR Stat Lab 09/03/24 08:25 Completed Type and Screen Stat Lab 09/03/24 08:25 Completed UA, C/S IF [Urinalysis, C/S if Indicated] Stat Lab 09/03/24 08:31 Completed Urine Culture Stat Lab 09/03/24 08:31 Received Acetaminophen Tab [Tylenol ES Tab] Med 09/03/24 07:47 Discontinued 1,000 mg PO X1 ONE Ketorolac Inj [Toradol Inj] Med 09/03/24 12:27 Discontinued 30 mg IM X1 ONE Vital Signs Vital signs: Vital Signs Temperature 98.3 F 09/03/24 07:41 Pulse Rate 89 09/03/24 07:41 Respiratory Rate 18 09/03/24 07:41 Blood Pressure 117/72 09/03/24 07:41 Pulse Oximetry (%) 95 09/03/24 07:41 Oxygen Delivery Method Room Air 09/03/24 07:41 Vaginal Bleeding MDM Narrative MDM Narrative: Pattie Devine am scribing for and in the presence of Dr. Mckenzie. Patient data External records reviewed:: [facility] previous records (Reviewed last ED visit dated 08/29/24, discharged with the following: Anxiety reaction) Clinical information provided by:: patient Social determinants that could affect healthcare access:: none Patient has the following chronic illnesses:: Denies any PMHx, surgeries, daily medications, or known allergies. Patient reports recent on the 08/04/24 and D&C on 08/10/24. How is presenting disease/condition affected by chronic disease/condition?: no chronic disease Evaluation data The following diagnostics were reviewed and interpreted by me:: lab results and radiology exam(s) Lab and/or radiology exams considered but not ordered:: none Interpretation Summary: Procedure(s): US transvaginal Accession Number(s): [id number] cc: Juan Luis Amaral MD; Ronnie Rodriguez MD; Jackelyn Mckenzie MD~ Examination: Transvaginal ultrasound of the pelvis, complete Technique: Transvaginal sonographic images pelvis performed using gusman scale imaging Exam date and time: September 03, 2024 1030 hours INDICATIONS: Medical August 04, 2024, worsening vaginal bleeding this week FINDINGS: Uterus 10.2 cm endometrial stripe 1.3 cm Free fluid in the endometrium mild No intrauterine gestation Right ovary 3.5 cm arterial flow follicular cyst Left ovary 2.3 cm arterial flow follicular cysts Fluid-filled left fallopian tube 14 x 14 x 14 mm IMPRESSION: Negative for retained products of conception Suspicious for left hydrosalpinx. Dictated By: Ronnie Rodriguez MD Procedure(s): US pelvic complete Accession Number(s): [id number] cc: Keith (BRYANNA),Darwin GOULD; Juan Luis Amaral MD; Ronnie Rodriguez MD~ Examination: Pelvic ultrasound, transabdominal, complete Technique: Transabdominal ultrasound of the pelvis performed using grayscale imaging Date and time of exam: September 03, 2024 0837 hours INDICATIONS: Status post medical August 04, 2024 vaginal bleeding beginning 4 days ago FINDINGS: Uterus 9.9 cm, free fluid in the endometrium and endometrial stripe 1.0 cm No intrauterine gestation Right ovary 3.0 cm arterial flow small follicles Left ovary 3.0 cm arterial flow 19 mm follicle IMPRESSION: Recommend transvaginal pelvic sonography follow-up to best exclude retained products of conception Dictated By: Ronnie Rodriguez MD Medications / Prescriptions Medications or Prescriptions considered but not ordered:: none Medication administrations:: Medication Administration History Discontinued Medications Acetaminophen (Acetaminophen 500 Mg Tablet) 1,000 mg PO X1 ONE Stop: 09/03/24 07:48 Last Admin: 09/03/24 08:20 Dose: 1,000 mg Documented By: SOUTH Ketorolac Tromethamine (Ketorolac Inj 30 Mg/Ml Vial) 30 mg IM X1 ONE Stop: 09/03/24 12:28 Last Admin: 09/03/24 12:39 Dose: 30 mg Documented By: SOUTH see above Consultations Consultation(s) initiated? (list below): No Diagnosis Vaginal Bleeding Differential Diagnosis: missed , threatened , dysfunctional uterine bleeding and incomplete Most likely diagnosis given after review of the tests above:: Pelvic pain Vaginal discharge Admission Indicated Admission indicated?: not indicated Admission Request Was there a request for admission?: No Disposition Plan Disposition Plan: Discharge Discharge Attestation Discharge Attestation: The patient and all family members were given an opportunity to ask questions and understood the discharge instructions. Discharge instructions specifically effects, indications for sooner follow up or return to the emergency department, and the expected course of current diagnosis. Patient condition: Stable Discharge Plan Plan Patient Disposition: HOME (Self Care) Prescriptions/Referrals Prescriptions/Med Rec: No Action acetaminophen [Tylenol Extra Strength] 500 mg tablet 1,000 mg PO Q6H PRN (Reason: pain) Qty: 30 0RF hydrocodone-acetaminophen 5-325 mg tablet 1 tab PO BID MDD 10mg PRN (Reason: pain) Qty: 10 0RF Referrals: Juan Luis Amaral MD [Primary Care Provider] - In 1 week Problem List Clinical Impression: Pelvic pain, Vaginal discharge Patient/Caregiver Discharge Instructions Education Materials: ED Pelvic Pain, Unknown Cause Print Language: Vietnamese Stand Alone Forms: Sally Award Info., Patient Portal Info Letter
[2024-09-03 08:27] VITALS: BP 120/72; PULSE 76; RESP 16; TEMP 36.7; O2SAT 100
[2024-09-03 08:56] LABS: Collection Type, Urine Clean Catch
[2024-09-03 08:59] LABS: Basophils # (Auto) 0.2 Thou/mm3 (0.0-0.2); Basophils % (Auto) 2 % (0-2.5); Eosinophils # (Auto) 0.3 Thou/mm3 (0.0-0.5); Eosinophils % (Auto) 4 % (0-10); Hematocrit 31.6 % (36.0-46.0); Hemoglobin 10.2 g/dL (12.0-16.0); Immature Granulocytes % (Auto) 0 % (0-0); Immature Granulocytes Auto 0.02 Thou/mm3 (0.00-0.00); Lymphocytes % (Auto) 23 % (10-50); Mean Corpuscular HGB Conc 32.3 g/dl (31.0-37.0); Mean Corpuscular Hemoglobin 26.4 pg (25.0-35.0); Mean Corpuscular Volume 82 fL (80-100); Monocytes # (Auto) 0.6 Thou/mm3 (0.0-0.8); Monocytes % (Auto) 7 % (0-12); Neutrophils # (Auto) 5.9 Thou/mm3 (1.8-7.7); Neutrophils % (Auto) 65 % (37-80); Nucleated Red Blood Cell % 0 /100 WBC (0); Platelet Count 279 Thou/mm3 (140-440); RDW Standard Deviation 42.5 fL (36.4-46.3); Red Blood Count 3.87 Miln/mm3 (4.00-5.20)
[2024-09-03 09:16] LABS: Partial Thromboplastin Time 26.8 Seconds (22.0-36.0); Prothrombin Time 11.2 Seconds (9.0-12.2)
[2024-09-03 09:18] LABS: Alanine Aminotransferase < 7 U/L (10-49); Albumin, Serum 4.4 gm/dL (3.5-5.0); Albumin/Globulin Ratio 1.8 (1.2-2.2); Alkaline Phosphatase 78 U/L (46-116); Anion Gap 9 (7-16); Aspartate Amino Transferase 12 U/L (0-34); BUN/Creatinine Ratio 15 Ratio (12-20); Bilirubin,Total 0.3 mg/dL (0.3-1.2); Blood Urea Nitrogen 12 mg/dL (9-23); Carbon Dioxide 25.7 mMol/L (20.0-31.0); Chloride 112 mMol/L (98-107); Creatinine (Component) 0.8 mg/dL (0.6-1.3); Globulin 2.5 gm/dL (2.3-3.5); Glucose 91 mg/dL (74-106); Osmolality,Calculated 292 (275-295); Potassium 3.4 mMol/L (3.4-5.1); Sodium 147 mMol/L (136-145); Total Protein 6.9 gm/dL (5.7-8.2); eGFR > 60 See Note
[2024-09-03 09:20] LABS: Bilirubin,Urine Negative (Negative); Blood,Urine 3+ (Negative); Clarity,Urine Turbid (Clear/Hazy); Color,Urine Brown (Lt Yel-Yel); Glucose, Urine Negative (Negative); Ketones,Urine Negative (Negative); Leukocyte Esterase,Urine Positive (Negative); Nitrite,Urine Negative (Negative); Protein,Urine 1+ (Neg - Trace); RBC,Urine 712 /hpf (0-3); Specific Gravity,Urine 1.016 (1.001-1.035); Squamous Epithelial Cell,Urine 10 /hpf (0-5); Urobilinogen,Urine Negative mg/dL (0.0-1.0); WBC,Urine 53 /hpf (0-5)
[2024-09-03 09:36] LABS: Culture Indicated,Urine Yes
[2024-09-03 09:47] LABS: HCG,Qualitative Serum Negative
--- NOTE | 2024-09-03 10:01 | XR_ITS ---
Examination: Transvaginal ultrasound of the pelvis, complete Technique: Transvaginal sonographic images pelvis performed using gusman scale imaging Exam date and time: September 03, 2024 1030 hours INDICATIONS: Medical August 04, 2024, worsening vaginal bleeding this week FINDINGS: Uterus 10.2 cm endometrial stripe 1.3 cm Free fluid in the endometrium mild No intrauterine gestation Right ovary 3.5 cm arterial flow follicular cyst Left ovary 2.3 cm arterial flow follicular cysts Fluid-filled left fallopian tube 14 x 14 x 14 mm IMPRESSION: Negative for retained products of conception Suspicious for left hydrosalpinx.
[2024-09-03 10:03] VITALS: BP 113/73; PULSE 74; RESP 19; TEMP 36.5; O2SAT 95
[2024-09-03] MEDS: KETOROLAC INJ 30 MG/ML VIAL IM (12:39)
[2024-09-03 15:50] LABS: Chlamydia trachomatis PCR Negative (Not Detect); Neisseria Gonorrhoeae DNA PCR Negative (Not Detect); Trichomonas Negative (Negative)
== END 2024-09-03 13:55 | disposition home or self-care (01) ==
PROVIDERS: Nurse Practitioner Primary Care; Emergency Provider Emergency Medicine; PCP Family Medicine
DX: O04.89 (Induced) termination of pregnancy with other complications (principal); N89.8 Other specified noninflammatory disorders of vagina
CPT/HCPCS: 36415; 76830; 76856; 80053; 81001; 84703; 85025; 85610; 85730; 86850; 86870; 86900; 86901; 87086; 87491; 87591; 87661; 96372; 99284; J1885; A9270

== ENCOUNTER 2024-09-20 22:33 | Emergency (ER) | payer MEDICAID, SELFPAY ==
[2024-09-20 22:57] VITALS: BP 114/74; PULSE 97; RESP 18; TEMP 37.2; O2SAT 97; BMI 24.9
--- NOTE | 2024-09-20 23:23 | XR_ITS ---
Examination: Knee, left , 3 views Technique: Knee AP, lateral, oblique 3 views Date and time of exam: September 20, 2024 10:30 PM INDICATIONS: Knee pain beginning 2 days ago no trauma FINDINGS: No fracture or dislocation No foreign body No significant arthritic change IMPRESSION: No fracture or dislocation
--- NOTE | 2024-09-20 23:24 | EDNOTE_ITS ---
ED Extremity Problem RME/HPI General Chief complaint: Extremity Problem,Nontraumatic Stated complaint: LEFT KNEE PAIN Time Seen by Provider: 09/20/24 22:44 Source: patient, RN notes reviewed and old records reviewed Arrival date/time: 09/20/24 22:33 Mode of arrival: ambulatory Limitations: no limitations RME / HPI RME / HPI Narrative: 29yof presents to ED for left knee pain that initiated today. No preceding injury or fall. 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 Patient also requests test. Related Data Previous Rx's ?Medication ?Instructions ?Recorded acetaminophen 500 mg tablet 1,000 mg (2 x 500 mg) PO Q 6H PRN 07/09/24 (Tylenol Extra Strength) pain #30 tabs hydrocodone 5 mg-acetaminophen 325 1 tab PO BID PRN pa in #10 tabs 08/27/24 mg tablet ibuprofen 600 mg tablet 600 mg PO Q6H PRN pain #20 t abs 09/21/24 Allergies Allergy/AdvReac Type Severity Reaction Status Date / Time No Known Allergies Allergy Verified 09/20/24 22:35 Review of Systems Review of Systems Systems Reviewed: All systems reviewed, normal except as documented Musculoskeletal Musculoskeletal: Reports arthralgias, Denies deformity, Denies joint swelling, Denies limited range of motion, Denies numbness and Denies tingling Neurologic Neurologic: Denies numbness and Denies tingling Past Medical History Surgical History OTHER SURGICAL HX: D&C Social History SMOKING STATUS: Never smoker SUBSTANCE USE: does not use ALCOHOL: Never Past Medical History Comments PMH COMMENT: denies pmhx ED Exam General Limitations: Present no limitations General appearance: Present alert and in no apparent distress Head Head exam: Present atraumatic and normocephalic Eye Eye exam: Present normal appearance, PERRL and EOMI ENT ENT exam: Present normal exam and mucous membranes moist Neck Neck exam: Present normal inspection and full ROM Chest Chest inspection: Present normal inspection and symmetric chest wall rise Respiratory Respiratory exam: Present normal lung sounds bilaterally; Absent respiratory distress Cardiovascular Cardiovascular exam: Present regular rate and normal rhythm Extremities Exam Extremities exam: Present other (Mild anterior left knee tenderness, no swelling. No laxity. FROM. DP pulses and sensation intact.) Neurological Exam Neurological exam: Present alert and oriented X3 Psychiatric Psychiatric exam: Present normal affect and normal mood Skin Skin exam: Present warm, dry, intact and normal color Course Quality Measures none Orders Category Date Time Status patricio wrap [Splint / Immobilizer] STAT Care 09/21/24 00:45 Completed XR knee LT 3V Stat Exams 09/20/24 23:23 Completed HCG,Qualitative Serum Stat Lab 09/20/24 23:23 Completed Acetaminophen Tab [Tylenol ES Tab] Med 09/20/24 23:24 Discontinued 1,000 mg PO X1 ONE Lidocaine 5% Patch Med 09/20/24 23:24 Discontinued 1 patch TOP X1 ONE Vital Signs Vital signs: Vital Signs Temperature 98.9 F 09/20/24 22:57 Pulse Rate 97 09/20/24 22:57 Respiratory Rate 18 09/20/24 22:57 Blood Pressure 114/74 09/20/24 22:57 Pulse Oximetry (%) 97 09/20/24 22:57 Oxygen Delivery Method Room Air 09/20/24 22:57 Extremity Problem MDM Narrative MDM Narrative:: 29yof presents to ED for left knee pain that initiated today. No preceding injury or fall. 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 Patient also requests test. Patient is neurovascularly intact. Encouraged RICE therapy, motrin/tylenol prn pain. Patricio wrap applied to left knee in ED. Stable for dc, RTED precautions given. Patient data External records reviewed:: [facility], [place] previous records (09/03/24 ED visit for pelvic pain) Clinical information provided by:: patient Social determinants that could affect healthcare access:: other (specify) (poor access to healthcare) Patient has the following chronic illnesses:: none How is presenting disease/condition affected by chronic disease/condition?: no chronic disease Evaluation data The following diagnostics were reviewed and interpreted by me:: radiology exam(s) Lab and/or radiology exams considered but not ordered:: none Interpretation Summary: Knee xrays: no fracture per my read Medications / Prescriptions Medications or Prescriptions considered but not ordered:: no antibiotics recommended at this time Medication administrations:: Medication Administration History Discontinued Medications Acetaminophen (Acetaminophen 500 Mg Tablet) 1,000 mg PO X1 ONE Stop: 09/20/24 23:25 Last Admin: 09/21/24 00:37 Dose: 1,000 mg Documented By: PINOR Lidocaine (Lidocaine 5% 1 Patch) 1 patch TOP X1 ONE Stop: 09/20/24 23:25 Last Admin: 09/21/24 00:38 Dose: 1 patch Documented By: GINGER Comments: left knee above medications administered in ED Consultations Consultation(s) initiated? (list below): No Diagnosis Most likely diagnosis given after review of the tests above:: knee pain Admission Indicated Admission indicated?: not indicated Admission Request Was there a request for admission?: No Disposition Plan Disposition Plan: Discharge Discharge Attestation Discharge Attestation: The patient and all family members were given an opportunity to ask questions and understood the discharge instructions. Discharge instructions specifically effects, indications for sooner follow up or return to the emergency department, and the expected course of current diagnosis. Patient condition: Stable Discharge Plan Plan Patient Disposition: HOME (Self Care) Patient condition on transfer: Stable Prescriptions/Referrals Prescriptions/Med Rec: New ibuprofen 600 mg tablet 600 mg PO Q6H PRN (Reason: pain) Qty: 20 0RF No Action acetaminophen [Tylenol Extra Strength] 500 mg tablet 1,000 mg PO Q6H PRN (Reason: pain) Qty: 30 0RF hydrocodone-acetaminophen 5-325 mg tablet 1 tab PO BID MDD 10mg PRN (Reason: pain) Qty: 10 0RF Referrals: No Primary/Family,Physician [Primary Care Provider] - In 1 week Paul Johnston MD [Physician] - (Call to schedule an appointment as needed.) Problem List Clinical Impression: Knee pain, left, Negative test Patient/Caregiver Discharge Instructions Education Materials: ED Knee Pain of Uncertain Cause Additional Instructions: Alternate ibuprofen and Tylenol as needed for pain. Ice application and compression bandage can help with swelling. Follow-up with your PCP or ortho if symptoms persist or worsen. Print Language: Tajik Stand Alone Forms: Sally Award Info., Patient Portal Info Letter PA/JOSE Supervising Physician ZANE/JOSE Supervising Physician: Yvette
[2024-09-21] MEDS: ACETAMINOPHEN 500 MG TABLET 1000 MG PO (00:37)
[2024-09-21] MEDS: LIDOCAINE 5% 1 PATCH TOP (00:38)
[2024-09-21 00:44] LABS: HCG,Qualitative Serum Negative
== END 2024-09-21 00:55 | disposition home or self-care (01) ==
PROVIDERS: Physician Assistant; Emergency Provider Emergency Medicine
DX: M25.562 Pain in left knee (principal); Z32.02 Encounter for pregnancy test, result negative
CPT/HCPCS: 36415; 73562; 84703; 99283; J3490; A9270

== ENCOUNTER 2024-09-30 00:09 | Emergency (ER) | payer MEDICAID, SELFPAY ==
[2024-09-30 00:09] VITALS: BMI 27.1
[2024-09-30 00:22] VITALS: BP 126/83; PULSE 79; RESP 19; TEMP 36.4; O2SAT 99
[2024-09-30] MEDS: ONDANSETRON ODT 4 MG TABRAP PO (00:53)
[2024-09-30 01:12] LABS: Basophils # (Auto) 0.2 Thou/mm3 (0.0-0.2); Basophils % (Auto) 2 % (0-2.5); Eosinophils # (Auto) 0.4 Thou/mm3 (0.0-0.5); Eosinophils % (Auto) 4 % (0-10); Hematocrit 35.1 % (36.0-46.0); Hemoglobin 11.3 g/dL (12.0-16.0); Immature Granulocytes % (Auto) 0 % (0-0); Immature Granulocytes Auto 0.04 Thou/mm3 (0.00-0.00); Lymphocytes # (Auto) 2.4 Thou/mm3 (1.0-4.8); Lymphocytes % (Auto) 20 % (10-50); Mean Corpuscular HGB Conc 32.2 g/dl (31.0-37.0); Mean Corpuscular Hemoglobin 25.7 pg (25.0-35.0); Mean Corpuscular Volume 80 fL (80-100); Monocytes # (Auto) 0.7 Thou/mm3 (0.0-0.8); Monocytes % (Auto) 6 % (0-12); Neutrophils # (Auto) 7.9 Thou/mm3 (1.8-7.7); Neutrophils % (Auto) 68 % (37-80); Nucleated Red Blood Cell % 0 /100 WBC (0); Platelet Count 406 Thou/mm3 (140-440); RDW Standard Deviation 43.6 fL (36.4-46.3); White Blood Count 11.7 Thou/mm3 (3.6-11.0)
[2024-09-30 01:42] LABS: Alanine Aminotransferase < 7 U/L (10-49); Albumin, Serum 4.6 gm/dL (3.5-5.0); Albumin/Globulin Ratio 1.4 (1.2-2.2); Alkaline Phosphatase 89 U/L (46-116); Anion Gap 9 (7-16); Aspartate Amino Transferase 12 U/L (0-34); BUN/Creatinine Ratio 16 Ratio (12-20); Bilirubin,Total 0.4 mg/dL (0.3-1.2); Blood Urea Nitrogen 13 mg/dL (9-23); Calcium 9.1 mg/dL (8.3-10.6); Calcium (Corrected) 9.1 mg/dL (8.5-10.1); Carbon Dioxide 26.5 mMol/L (20.0-31.0); Chloride 105 mMol/L (98-107); Creatinine (Component) 0.8 mg/dL (0.6-1.3); Estimated Creatinine Clearance 102.5 mL/min (>60); Globulin 3.2 gm/dL (2.3-3.5); Glucose 113 mg/dL (74-106); Lipase 44 U/L (12-53); Osmolality,Calculated 280 (275-295); Potassium 3.6 mMol/L (3.4-5.1); Sodium 140 mMol/L (136-145); Total Protein 7.8 gm/dL (5.7-8.2); eGFR > 60 See Note
[2024-09-30 01:46] LABS: Collection Type, Urine Clean Catch
[2024-09-30 02:03] LABS: Bilirubin,Urine Negative (Negative); Blood,Urine 3+ (Negative); Clarity,Urine Turbid (Clear/Hazy); Color,Urine Brown (Lt Yel-Yel); Glucose, Urine Negative (Negative); Ketones,Urine Negative (Negative); Leukocyte Esterase,Urine Positive (Negative); Nitrite,Urine Negative (Negative); PH,Urine 5.5 (5.0-7.0); Protein,Urine 2+ (Neg - Trace); RBC,Urine 3058 /hpf (0-3); Specific Gravity,Urine 1.029 (1.001-1.035); Squamous Epithelial Cell,Urine 14 /hpf (0-5); Urobilinogen,Urine Negative mg/dL (0.0-1.0); WBC,Urine 62 /hpf (0-5)
[2024-09-30 02:04] LABS: HCG Qualitative,Urine Negative
[2024-09-30 02:07] LABS: Amphetamine/Methamp Scrn,U Negative (Negative); Barbiturate Screen,Urine Negative (Negative); Benzodiazepines Screen,Urine Negative (Negative); Benzoylecgonine Screen, Ur Negative (Negative); Fentanyl Screen,Urine Negative (Negative); Opiate Screen,Urine Negative (Negative); THC Screen,Urine Negative (Negative)
[2024-09-30] MEDS: METOCLOPRAMIDE INJ 5 MG/ML VIAL 2 ML 10 MG IM (02:16)
[2024-09-30 04:16] VITALS: BP 116/72; PULSE 72; RESP 16; TEMP 36.8; O2SAT 98
--- NOTE | 2024-09-30 05:19 | PD.EDNV ---
Nausea/Vomit./Diarrhea-RME/HPI General Chief complaint: Nausea/Vomiting/Diarrhea Stated complaint: VOMITING/DIARRHEA/WEAKNESS X1DAY Time Seen by Provider: 09/30/24 00:38 Arrival date/time: 09/30/24 00:09 29F with history of drug use presents to ED with 1 day of N/V and non-bloody diarrhea. Patient is currently on her period. Patient denies dysuria. Limitations: no limitations Related Data Previous Rx's ?Medication ?Instructions ?Recorded acetaminophen 500 mg tablet 1,000 mg (2 x 500 mg) PO Q6H PRN 07/09/24 (Tylenol Extra Strength) pain #30 tabs hydrocodone 5 mg-acetaminophen 325 1 tab PO BID PRN pain #10 tabs 08/27/24 mg tablet ibuprofen 600 mg tablet 600 mg PO Q6H PRN pain #20 tabs 09/21/24 metoclopramide HCl 5 mg tablet 5 mg PO TID PRN nausea and 09/30/24 (Reglan) vomiting #20 tabs Allergies Allergy/AdvReac Type Severity Reaction Status Date / Time No Known Allergies Allergy Verified 09/20/24 22:35 Review of Systems Review of Systems Systems Reviewed: All systems reviewed, normal except as documented Constitutional Constitutional: Reports system reviewed and no additional complaints, except as documented, Denies fever(s) and Denies headache(s) ENT Ears, Nose, Mouth, and Throat: Denies disequilibrium and Denies headache(s) Cardiovascular Cardiovascular: Reports system reviewed and no additional complaints, except as documented, Denies chest pain and Denies dyspnea Respiratory Respiratory: Reports system reviewed and no additional complaints, except as documented, Denies cough and Denies dyspnea Gastrointestinal Gastrointestinal: Reports system reviewed and no additional complaints, except as documented, Reports as per HPI, Denies abdominal pain, Reports diarrhea, Reports nausea and Reports vomiting Neurologic Neurologic: Reports system reviewed and no additional complaints, except as documented, Denies confusion, Denies disequilibrium and Denies headache(s) Psychiatric Psychiatric: Denies confusion Past Medical History Past Medical History NEUROLOGIC: Positive Migraine; Negative Neurological Disorders, Cerebrovascular Accident, Transient Ischemic Attacks (TIA), Dementia, Alzheimer's Disease, Parkinson's Disease, Brain Tumor, Meningitis, Seizures, Epilepsy, Multiple Sclerosis, Cerebral Palsy, Amyotrophic Lateral Sclerosis (ALS/Monse Gehrig's), Guillain-Lincoln Syndrome, Spina Bifida, Paralysis, Peripheral Neuropathy, Stein's Palsy, Subdural Hematoma, Head Trauma, Spinal Cord Injury or Traumatic Brain Injury CARDIAC: Positive Cardiac Arrhythmia and Heart Murmur; Negative Cardiac Disorders, Myocardial Infarction, Atrial Fibrillation, Angina, Coronary Artery Disease, Atherosclerotic Heart Disease, Peripheral Vascular Disease, Hypercholesterolemia, Aneurysm, Congestive Heart Failure, Congenital Heart Disease, Valvular Heart Disease, Rheumatic Fever, Cardiomyopathy, Edema, Pericarditis, Cellulitis, Deep Vein Thrombosis, Hypertension, Hypotension or Varicose Veins RESPIRATORY: Negative Chronic Obstructive Pulmonary Disease (COPD), Asthma, Bronchitis, Emphysema, Pneumonia, Pulmonary Fibrosis, Cystic Fibrosis, Tuberculosis, Pulmonary Embolism, Pulmonary Edema or Sleep Apnea GASTROINTESTINAL: Negative Gastrointestinal Disorders, Hepatitis, Cirrhosis, Pancreatitis, Celiac Disease, Gall Bladder Disease, Gastrointestinal Bleed, Esophageal Varices, Heath's Esophagus, Colitis, Ulcerative Colitis, Diverticulitis, Diverticulosis, Ulcer, Colorectal Cancer, Irritable Bowel, Crohn's Disease, Obstructive Bowel, Hiatal Hernia, Hemorrhoids, Gastroesophageal Reflux Disease or Obesity GENITOURINARY: Negative Genitourinary Disorders, Renal Disease, Kidney Stones, Polycystic Kidney Disease, Neurogenic Bladder, Inguinal Hernia, Dialysis, Prostate Cancer or Benign Prostatic Hyperplasia REPRODUCTIVE: Positive Gonorrhea, Previous Pregnancies and Syphilis; Negative Breast Cancer, Endometriosis, Genital Herpes, Pelvic Inflammatory Disease, Testicular Cancer or Uterine Prolapse MUSCULOSKELETAL: Negative Musculoskeletal Disorders, Muscular Dystrophy, Myasthenia Gravis, Marfan's Syndrome, Bone Cancer, Arthritis, Rheumatoid Arthritis, Osteoporosis, Degenerative Disk Disease, Gout, Scoliosis, Carpal Tunnel Syndrome, Fibromyalgia, Fractures, Degenerative Joint Disease, Osteomyelitis or Poliovirus ENT: Negative Cataracts, Glaucoma, Blind, Retinal Detachment, Macular Degeneration, Ear Infection, Deafness, Head Trauma or Eye Prosthesis ENDOCRINE: Negative Endocrine Disorders, Diabetes Mellitus Type 1, Diabetes Mellitus Type 2, Hypoglycemia, Stephanie's Syndrome, Gino's Disease, Hyperthyroidism, Hypothyroidism, Parathyroid Disease, Pituitary Disease, Systemic Lupus Erythematosus, Syndrome of Inappropriate Antidiuretic Hormone (SIADH), Adrenal Disease or Graves' Disease HEMATOLOGIC: Positive Blood Disorders and Anemia; Negative Leukemia, Hemophilia, Thalassemia, Sickle Cell Disease or Clotting Problems PSYCHO/SOCIAL: Positive Bipolar Disorder and Depression; Negative Psychiatric Problems, Schizophrenia, Recreational Drug Use, Depression, Anxiety, Self-Mutilation, Attention Deficit Disorder, Attention Deficit Hyperactivity Disorder, Post Traumatic Stress Disorder or Eating Disorder OTHER HISTORY: Positive Hospitalization, Blood Transfusions and Anesthesia Reactions; Negative Autoimmune Disease, Down Syndrome, Autism, Developmental Delay, Shingles, Falls, Blood Transfusion Reaction, Organ Transplant, Chemotherapy, Radiation Therapy, Hyperbaric Therapy, MRSA, VRSA, Vancomycin-Resistant Enterococci, Human Immunodeficiency Virus (HIV), Chicken Pox, Measles, Mumps, Rubella (Danish Measles), Pertussis, Clostridium Difficile, Cancer, Breast Cancer, Cervical Cancer, Colorectal Cancer, Lung Cancer, Ovarian Cancer, Prostate Cancer or Testicular Cancer Family History FAMILY HISTORY: Positive Family Respiratory Disorders and Family Cancer; Negative Family Psychiatric Problems, Family Cardiac Disorders, Family Gastrointestinal Problems, Family Surgery or Family Anesthesia Reaction Surgical History SURGICAL: Positive Mastectomy; Negative Cardiac Surgery, Open Heart Surgery, Coronary Artery Bypass Graft, Valve Replacement, Vascular Surgery, Coronary Stent, Cardiac Catheterization, Pacemaker, Angiogram, Auto Implanted Cardiovert Defib, Carotid Endarterectomy, Endocrine Surgery, Thyroidectomy, Ear Surgery, Tympanostomy Tube, Eye Surgery, Nose Surgery, Oral Surgery, Tonsillectomy, Adenoidectomy, Cochlear Implant, Corneal Transplant, Throat Surgery, Abdominal Surgery, Tracheostomy, Gastric Bypass Surgery, Gastrostomy, Bowel Surgery, Nephrectomy, Transurethral Resection, Joint Replacement, Amputation, Open Reduction Internal Fixation, Arthroscopy, Neurologic Surgery, Brain Shunt, Lumpectomy, Hysterectomy, Tubal Ligation, Section, Vasectomy or Organ Transplant Social History SMOKING STATUS: Never smoker SECOND HAND EXPOSURE: No SUBSTANCE USE: does not use ED Exam General Limitations: Present no limitations General appearance: Present alert and in no apparent distress Head Head exam: Present atraumatic Eye Eye exam: Present normal appearance, PERRL and EOMI ENT ENT exam: Present normal exam, normal oropharynx and mucous membranes moist Neck Neck exam: Present normal inspection, full ROM and trachea midline Chest Chest inspection: Present normal inspection and symmetric chest wall rise Respiratory Respiratory exam: Present normal lung sounds bilaterally Cardiovascular Cardiovascular exam: Present regular rate, normal rhythm and normal heart sounds Abdominal Exam Abdominal exam: Present soft, tenderness and normal bowel sounds Abdominal tenderness: Present mild Extremities Exam Extremities exam: Present normal inspection and full ROM Back Exam Back exam: Present normal inspection and full ROM Neurological Exam Neurological exam: Present alert, oriented X3 and CN II-XII intact Psychiatric Psychiatric exam: Present normal affect and normal mood Skin Skin exam: Present warm, dry, intact and normal color Course Quality Measures none Orders Category Date Time Status CBC Stat Lab 09/30/24 00:50 Completed CMP [Comprehensive Metabolic Panel] Stat Lab 09/30/24 00:50 Completed Drug Screen,Urine Stat Lab 09/30/24 01:33 Completed HCG Qualitative,Urine Stat Lab 09/30/24 01:33 Completed Lipase Stat Lab 09/30/24 00:50 Completed UA [Urinalysis] Stat Lab 09/30/24 01:33 Completed Metoclopramide Inj [Reglan Inj] Med 09/30/24 02:04 Discontinued 10 mg IM X1 ONE Ondansetron Odt [Zofran Odt] Med 09/30/24 00:39 Discontinued 4 mg PO X1 ONE Vital Signs Vital signs: Vital Signs Temperature 97.5 F 09/30/24 00:22 Pulse Rate 79 09/30/24 00:22 Respiratory Rate 19 09/30/24 00:22 Blood Pressure 126/83 09/30/24 00:22 Pulse Oximetry (%) 99 09/30/24 00:22 Oxygen Delivery Method Room Air 09/30/24 00:22 O2 at 99% on RA and WNLs Nausea/Vomiting/Diarrhea MDM Narrative MDM Narrative:: 29F with history of drug use presents to ED with 1 day of N/V and non-bloody diarrhea. Patient is currently on her period. Patient denies dysuria. Physical exam reveals mild gen ab tenderness. Patient is afebrile, calm, and alert. Minimal leukocytosis. CMP unremarkable. UA contaminated with most blood. Will not treat given no dysuria. No gross dehydration. Patient felt better and passed PO challenge after meds given. Likely viral gastroenteritis. Patient data External records reviewed:: [facility] previous records Clinical information provided by:: patient Social determinants that could affect healthcare access:: substance use Patient has the following chronic illnesses:: drug use How is presenting disease/condition affected by chronic disease/condition?: exacerbated by Evaluation data The following diagnostics were reviewed and interpreted by me:: lab results Lab and/or radiology exams considered but not ordered:: ordered Interpretation Summary: above Medications / Prescriptions Medications / Prescriptions considered but not ordered:: ordered Medication administrations:: Medication Administration History Discontinued Medications Metoclopramide HCl (Metoclopramide Inj 5 Mg/Ml Vial 2 Ml) 10 mg IM X1 ONE; Protocol Stop: 09/30/24 02:05 Last Admin: 09/30/24 02:16 Dose: 10 mg Documented By: MINGO Ondansetron HCl (Ondansetron Odt 4 Mg Tabrap) 4 mg PO X1 ONE; Protocol Stop: 09/30/24 00:40 Last Admin: 09/30/24 00:53 Dose: 4 mg Documented By: above Consultations Consultation(s) initiated? (list below): No Diagnosis Nausea Differential Diagnosis: traveler's diarrhea, food poisoning, gastroenteritis, clostridium difficile infection, drug-induced nausea and vomiting, dehydration and other Most likely diagnosis given after review of the tests above:: gastroenteritis Admission Indicated Admission indicated?: not indicated Admission Request Was there a request for admission?: No Disposition Plan Disposition Plan: Discharge Discharge Attestation Discharge Attestation: The patient and all family members were given an opportunity to ask questions and understood the discharge instructions. Discharge instructions specifically effects, indications for sooner follow up or return to the emergency department, and the expected course of current diagnosis. Patient condition: Stable Discharge Plan Plan Patient Disposition: HOME (Self Care) Disposition Comment: Stable Prescriptions/Referrals Prescriptions/Med Rec: New metoclopramide HCl [Reglan] 5 mg tablet 5 mg PO TID PRN (Reason: nausea and vomiting) Qty: 20 0RF No Action acetaminophen [Tylenol Extra Strength] 500 mg tablet 1,000 mg PO Q6H PRN (Reason: pain) Qty: 30 0RF hydrocodone-acetaminophen 5-325 mg tablet 1 tab PO BID MDD 10mg PRN (Reason: pain) Qty: 10 0RF ibuprofen 600 mg tablet 600 mg PO Q6H PRN (Reason: pain) Qty: 20 0RF Referrals: Juan Luis Amaral MD [Primary Care Provider] - In 1 week Problem List Clinical Impression: Gastroenteritis Patient/Caregiver Discharge Instructions Education Materials: ED Diarrhea, Viral (Adult) Additional Instructions: Please follow-up with PCP within 24-48 hours and return immediately if symptoms worsen. Lots of nasal suctioning. Keep hydrated. Advance diet as tolerated. Print Language: Occitan Stand Alone Forms: Patient Portal Info Letter ZANE/JOSE Supervising Physician ZANE/JOSE Supervising Physician: Dr. Mueller
== END 2024-09-30 04:18 | disposition home or self-care (01) ==
PROVIDERS: Physician Assistant; Emergency Provider Emergency Medicine; PCP Family Medicine
DX: K52.9 Noninfective gastroenteritis and colitis, unspecified (principal)
CPT/HCPCS: 36415; 80053; 80307; 81001; 81025; 83690; 85025; 96372; 99283; J2765; Q0162

== ENCOUNTER 2024-10-10 18:21 | Emergency (ER) | payer MEDICAID, SELFPAY ==
[2024-10-10 18:23] VITALS: BMI 27.8
[2024-10-10 18:43] VITALS: BP 143/89; PULSE 94; RESP 18; TEMP 37.1; O2SAT 100
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
[2024-10-10] MEDS: ACETAMINOPHEN 325 MG TABLET 650 MG PO (19:15)
[2024-10-10 19:20] LABS: Basophils # (Auto) 0.1 Thou/mm3 (0.0-0.2); Basophils % (Auto) 2 % (0-2.5); Eosinophils # (Auto) 0.3 Thou/mm3 (0.0-0.5); Eosinophils % (Auto) 3 % (0-10); Hematocrit 33.2 % (36.0-46.0); Hemoglobin 10.5 g/dL (12.0-16.0); Immature Granulocytes % (Auto) 0 % (0-0); Immature Granulocytes Auto 0.03 Thou/mm3 (0.00-0.00); Lymphocytes % (Auto) 21 % (10-50); Mean Corpuscular HGB Conc 31.6 g/dl (31.0-37.0); Mean Corpuscular Hemoglobin 25.7 pg (25.0-35.0); Mean Corpuscular Volume 81 fL (80-100); Monocytes # (Auto) 0.6 Thou/mm3 (0.0-0.8); Monocytes % (Auto) 6 % (0-12); Neutrophils # (Auto) 6.3 Thou/mm3 (1.8-7.7); Neutrophils % (Auto) 68 % (37-80); Nucleated Red Blood Cell % 0 /100 WBC (0); Platelet Count 371 Thou/mm3 (140-440); RDW Standard Deviation 45.8 fL (36.4-46.3); Red Blood Count 4.09 Miln/mm3 (4.00-5.20); White Blood Count 9.3 Thou/mm3 (3.6-11.0)
[2024-10-10 19:42] LABS: Alanine Aminotransferase 9 U/L (10-49); Albumin, Serum 4.5 gm/dL (3.5-5.0); Albumin/Globulin Ratio 1.5 (1.2-2.2); Alkaline Phosphatase 82 U/L (46-116); Anion Gap 8 (7-16); Aspartate Amino Transferase 16 U/L (0-34); BUN/Creatinine Ratio 16 Ratio (12-20); Beta HCG,Quantitative 1 mIU/mL (<5.0); Bilirubin,Total 0.5 mg/dL (0.3-1.2); Blood Urea Nitrogen 13 mg/dL (9-23); Calcium 9.1 mg/dL (8.3-10.6); Calcium (Corrected) 9.1 mg/dL (8.5-10.1); Chloride 108 mMol/L (98-107); Creatinine (Component) 0.8 mg/dL (0.6-1.3); Estimated Creatinine Clearance 103.7 mL/min (>60); Globulin 3.1 gm/dL (2.3-3.5); Glucose 103 mg/dL (74-106); Osmolality,Calculated 281 (275-295); Potassium 3.9 mMol/L (3.4-5.1); Sodium 141 mMol/L (136-145); Total Protein 7.6 gm/dL (5.7-8.2); eGFR > 60 See Note
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
--- NOTE | 2024-10-10 23:25 | PC.NURSE ---
NO ANSWER FOR CALL BACK TO MAIN ED
--- NOTE | 2024-10-10 23:40 | PC.NURSE ---
NO ANSWER FOR MAIN ED
== END 2024-10-10 23:44 | disposition left against medical advice (07) ==
LOC: SERX 18:51
PROVIDERS: Physician Assistant; Emergency Provider Emergency Medicine
DX: S09.90XA Unspecified injury of head, initial encounter (principal); S19.9XXA Unspecified injury of neck, initial encounter; Z53.29 Procedure and treatment not carried out because of patient's decision for other reasons; Y09 Assault by unspecified means
CPT/HCPCS: 36415; 70450; 71250; 72125; 74176; 80053; 84702; 84703; 85025; 99281; A9270

== ENCOUNTER 2024-10-12 03:54 | Emergency (ER) | payer MEDICAID, SELFPAY ==
[2024-10-12 04:00] VITALS: PULSE 96; RESP 18; O2SAT 96
[2024-10-12 04:03] VITALS: BMI 27.8
[2024-10-12 04:08] VITALS: BP 131/72; PULSE 89; RESP 20; TEMP 36.9; O2SAT 97
--- NOTE | 2024-10-12 04:11 | EKG_ITS ---
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
--- NOTE | 2024-10-12 04:12 | PD.EDRME ---
Rapid Medical Screening Exam RME Arrival date/time: 10/12/24 03:54 29 yo f present to ED for c/o chest pain radiated to back I have greeted and performed a focused initial assessment of this patient. A comprehensive ED assessment and evaluation of the patient, analysis of all test results, and completion of the medical decision making process will be conducted by additional ED providers. Chief Complaint: Back Pain/Injury Vital signs: Vital Signs Temperature 98.5 F 10/12/24 04:08 Pulse Rate 89 10/12/24 04:08 Respiratory Rate 20 10/12/24 04:08 Blood Pressure 131/72 H 10/12/24 04:08 Pulse Oximetry (%) 97 10/12/24 04:08 Oxygen Delivery Method Room Air 10/12/24 04:08
[2024-10-12 05:07] LABS: Red Blood Count 4.27 Miln/mm3 (4.00-5.20); White Blood Count 8.7 Thou/mm3 (3.6-11.0)
[2024-10-12 05:08] LABS: Basophils # (Auto) 0.2 Thou/mm3 (0.0-0.2); Basophils % (Auto) 2 % (0-2.5); Eosinophils # (Auto) 0.4 Thou/mm3 (0.0-0.5); Eosinophils % (Auto) 5 % (0-10); Hematocrit 34.5 % (36.0-46.0); Hemoglobin 10.9 g/dL (12.0-16.0); Immature Granulocytes % (Auto) 0 % (0-0); Immature Granulocytes Auto 0.02 Thou/mm3 (0.00-0.00); Lymphocytes # (Auto) 1.8 Thou/mm3 (1.0-4.8); Lymphocytes % (Auto) 21 % (10-50); Mean Corpuscular HGB Conc 31.6 g/dl (31.0-37.0); Mean Corpuscular Hemoglobin 25.5 pg (25.0-35.0); Mean Corpuscular Volume 81 fL (80-100); Monocytes # (Auto) 0.5 Thou/mm3 (0.0-0.8); Monocytes % (Auto) 6 % (0-12); Neutrophils # (Auto) 5.7 Thou/mm3 (1.8-7.7); Neutrophils % (Auto) 66 % (37-80); Nucleated Red Blood Cell % 0 /100 WBC (0); Platelet Count 358 Thou/mm3 (140-440); RDW Standard Deviation 45.4 fL (36.4-46.3)
[2024-10-12 05:22] LABS: HCG,Qualitative Serum Negative
[2024-10-12 05:39] LABS: Alanine Aminotransferase < 7 U/L (10-49); Albumin, Serum 4.7 gm/dL (3.5-5.0); Albumin/Globulin Ratio 1.6 (1.2-2.2); Alkaline Phosphatase 85 U/L (46-116); Anion Gap 7 (7-16); Aspartate Amino Transferase 13 U/L (0-34); BUN/Creatinine Ratio 14 Ratio (12-20); Bilirubin,Total 0.5 mg/dL (0.3-1.2); Blood Urea Nitrogen 11 mg/dL (9-23); Calcium 9.3 mg/dL (8.3-10.6); Calcium (Corrected) 9.3 mg/dL (8.5-10.1); Carbon Dioxide 25.6 mMol/L (20.0-31.0); Chloride 109 mMol/L (98-107); Creatinine (Component) 0.8 mg/dL (0.6-1.3); Estimated Creatinine Clearance 103.7 mL/min (>60); Globulin 2.9 gm/dL (2.3-3.5); Glucose 109 mg/dL (74-106); Osmolality,Calculated 283 (275-295); Potassium 3.6 mMol/L (3.4-5.1); Sodium 142 mMol/L (136-145); Thyroid Stimulating Hormone 2.69 uIU/mL (0.55-4.78); Total Protein 7.6 gm/dL (5.7-8.2); Troponin I < 0.002 ng/mL (0.0-0.045); eGFR > 60 See Note
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
== END 2024-10-12 07:40 | disposition home or self-care (01) ==
PROVIDERS: Physician Assistant; Emergency Provider Emergency Medicine
DX: M94.0 Chondrocostal junction syndrome [Tietze] (principal); R94.31 Abnormal electrocardiogram [ECG] [EKG]
CPT/HCPCS: 36415; 80053; 84443; 84484; 84703; 85025; 93005; 99283

== ENCOUNTER 2024-10-21 15:29 | Emergency (ER) | payer MEDICAID, SELFPAY ==
[2024-10-21 15:30] VITALS: BMI 27.8
[2024-10-21 15:44] VITALS: BP 115/79; PULSE 88; RESP 18; TEMP 36.9; O2SAT 99
--- NOTE | 2024-10-21 15:49 | XR_ITS ---
Examination: Pelvic ultrasound, transabdominal, complete Technique: Transabdominal ultrasound of the pelvis performed using grayscale imaging Date and time of exam: October 21, 2024 1619 hrs. Indications: Heavy vaginal bleeding beginning 2 days ago Findings: Uterus 8.4 cm endometrial stripe 0.93 cm no uterine mass or intrauterine gestation Right ovary 3.6 cm arterial flow Left ovary 4.3 cm arterial flow Impression: Negative study
--- NOTE | 2024-10-21 15:50 | PD.EDRME ---
Rapid Medical Screening Exam E Arrival date/time: 10/21/24 15:29 29-year-old female with no known medical history presents to the emergency room with a chief complaint of vaginal bleeding x 1 day. Patient states she is changed over 13 pads since this morning. Patient is currently on her menses. Patient states she is not . I have greeted and performed a focused initial assessment of this patient. A comprehensive ED assessment and evaluation of the patient, analysis of all test results, and completion of the medical decision making process will be conducted by additional ED providers. Chief Complaint: Vaginal Bleeding Time Seen by Provider: 10/21/24 15:43 Vital signs: Vital Signs Temperature 98.5 F 10/21/24 15:44 Pulse Rate 88 10/21/24 15:44 Respiratory Rate 18 10/21/24 15:44 Blood Pressure 115/79 10/21/24 15:44 Pulse Oximetry (%) 99 10/21/24 15:44 Oxygen Delivery Method Room Air 10/21/24 15:44 Vital signs reviewed by provider: Yes
[2024-10-21 16:36] LABS: Basophils # (Auto) 0.2 Thou/mm3 (0.0-0.2); Basophils % (Auto) 2 % (0-2.5); Collection Type, Urine Clean Catch; Eosinophils # (Auto) 0.2 Thou/mm3 (0.0-0.5); Eosinophils % (Auto) 3 % (0-10); Hemoglobin 10.8 g/dL (12.0-16.0); Immature Granulocytes % (Auto) 0 % (0-0); Immature Granulocytes Auto 0.02 Thou/mm3 (0.00-0.00); Lymphocytes # (Auto) 1.6 Thou/mm3 (1.0-4.8); Lymphocytes % (Auto) 18 % (10-50); Mean Corpuscular HGB Conc 31.8 g/dl (31.0-37.0); Mean Corpuscular Hemoglobin 25.2 pg (25.0-35.0); Mean Corpuscular Volume 79 fL (80-100); Monocytes # (Auto) 0.5 Thou/mm3 (0.0-0.8); Monocytes % (Auto) 6 % (0-12); Neutrophils # (Auto) 6.2 Thou/mm3 (1.8-7.7); Neutrophils % (Auto) 72 % (37-80); Nucleated Red Blood Cell % 0 /100 WBC (0); Platelet Count 280 Thou/mm3 (140-440); RDW Standard Deviation 44.7 fL (36.4-46.3); Red Blood Count 4.28 Miln/mm3 (4.00-5.20); White Blood Count 8.7 Thou/mm3 (3.6-11.0)
[2024-10-21 17:01] LABS: Bilirubin,Urine Negative (Negative); Blood,Urine 3+ (Negative); Glucose, Urine Negative (Negative); Ketones,Urine Negative (Negative); Leukocyte Esterase,Urine Positive (Negative); Nitrite,Urine Negative (Negative); PH,Urine 5.5 (5.0-7.0); Protein,Urine 1+ (Neg - Trace); RBC,Urine 6484 /hpf (0-3); Specific Gravity,Urine 1.027 (1.001-1.035); Squamous Epithelial Cell,Urine 4 /hpf (0-5); Urobilinogen,Urine Negative mg/dL (0.0-1.0); WBC,Urine 14 /hpf (0-5)
[2024-10-21 17:02] LABS: Clarity,Urine Hazy (Clear/Hazy); Color,Urine Lt-Orange (Lt Yel-Yel)
[2024-10-21 17:03] LABS: HCG,Qualitative Serum Negative
[2024-10-21 17:15] LABS: Alanine Aminotransferase < 7 U/L (10-49); Albumin, Serum 4.5 gm/dL (3.5-5.0); Albumin/Globulin Ratio 1.6 (1.2-2.2); Alkaline Phosphatase 81 U/L (46-116); Anion Gap 8 (7-16); Aspartate Amino Transferase 13 U/L (0-34); BUN/Creatinine Ratio 11 Ratio (12-20); Bilirubin,Total 0.8 mg/dL (0.3-1.2); Blood Urea Nitrogen 9 mg/dL (9-23); Calcium 9.1 mg/dL (8.3-10.6); Calcium (Corrected) 9.1 mg/dL (8.5-10.1); Carbon Dioxide 24.3 mMol/L (20.0-31.0); Chloride 108 mMol/L (98-107); Creatinine (Component) 0.8 mg/dL (0.6-1.3); Estimated Creatinine Clearance 103.7 mL/min (>60); Globulin 2.9 gm/dL (2.3-3.5); Glucose 93 mg/dL (74-106); Osmolality,Calculated 278 (275-295); Potassium 3.7 mMol/L (3.4-5.1); Sodium 140 mMol/L (136-145); Total Protein 7.4 gm/dL (5.7-8.2); eGFR > 60 See Note
--- NOTE | 2024-10-21 19:10 | PD.EDVAGBL ---
ED OB Contraction Preg RMI/HPI General Chief complaint: Vaginal Bleeding Stated complaint: VAG BLEED WITH HEADACHE, DENIES PREG Time Seen by Provider: 10/21/24 15:43 Arrival date/time: 10/21/24 15:29 RME / HPI RME / HPI Narrative: 29-year-old female with no known medical history presents to the emergency room with a chief complaint of vaginal bleeding x 1 day. Patient states she is changed over 13 pads since this morning. Patient is currently on her menses. Patient states she is not . Denies any other complaints Related Data Previous Rx's ?Medication ?Instructions ?Recorded acetaminophen 500 mg tablet 1,000 mg (2 x 500 mg) PO Q6H PRN 07/09/24 (Tylenol Extra Strength) pain #30 tabs hydrocodone 5 mg-acetaminophen 325 1 tab PO BID PRN pain #10 tabs 08/27/ mg tablet ibuprofen 600 mg tablet 600 mg PO Q6H PRN pain #20 tabs 09/21/24 metoclopramide HCl 5 mg tablet 5 mg PO TID PRN nausea and 09/30/24 (Reglan) vomiting #20 tabs Allergies Allergy/AdvReac Type Severity Reaction Status Date / Time No Known Allergies Allergy Verified 10/21/24 15:31 Review of Systems Review of Systems Narrative Review of Systems: Review of system reviewed and within normal limits except mentioned in HPI ED Exam Narrative Physical exam: VITAL SIGNS: Reviewed. GENERAL APPEARANCE: Alert and interactive, follows commands, no acute distress, HEAD AND FACE: Non-traumatic. ENT: PERRL, pink conjunctivitis, eyelid no trauma, Mucous membrane moist. NECK: Supple, nontender, no nuchal rigidity. CHEST: No tenderness, no crepitus, no paradoxical movement, no retractions. LUNGS: Clear, well ventilated, symmetric, no rales, no wheezing, no ronchi, no stridor, good breath sounds bilaterally. HEART: Regular rate, regular rhythm, no murmur, no gallops. ABDOMEN: Soft, positive bowel sounds, nondistended, no guarding, nontender, no rebound, no masses, RECTAL: Deferred. GENITAL: Deferred. NEUROLOGICAL: Gross motor function intact sensory function intact, Appropriate for age. MUSCULOSKELETAL: low back nontender, full range of motion. EXTREMITIES: Nontender, full range of motion. SKIN: Color pink, dry, no rash, no lacerations, no abrasions, no contusions. LYMPHATICS: Deferred. Course Quality Measures none Orders Category Date Time Status US pelvic complete Stat Exams 10/21/24 15:49 Completed CBC Stat Lab 10/21/24 16:11 Completed CMP [Comprehensive Metabolic Panel] Stat Lab 10/21/24 16:11 Completed HCG,Qualitative Serum Stat Lab 10/21/24 16:11 Completed UA [Urinalysis] Stat Lab 10/21/24 16:11 Completed Vital Signs Vital signs: Vital Signs Temperature 98.5 F 10/21/24 15:44 Pulse Rate 88 10/21/24 15:44 Respiratory Rate 18 10/21/24 15:44 Blood Pressure 115/79 10/21/24 15:44 Pulse Oximetry (%) 99 10/21/24 15:44 Oxygen Delivery Method Room Air 10/21/24 15:44 Vaginal Bleeding MDM Narrative MDM Narrative: 29-year-old female with no known medical history presents to the emergency room with a chief complaint of vaginal bleeding x 1 day. Patient states she is changed over 13 pads since this morning. Patient is currently on her menses. Patient states she is not . Denies any other complaints Patient's workup today all came back unremarkable including slight anemia of 10.8 hematocrit of 34.0. Patient is not ultrasound of the pelvis came back unremarkable. Results discussed with the patient. Was advised to closely follow-up PCP and for referral to [facility]. Patient agrees with presents and vital signs are stable prior to discharge. She is not hypotensive patient is ambulatory. Patient data External records reviewed:: None Clinical information provided by:: patient Social determinants that could affect healthcare access:: none Patient has the following chronic illnesses:: None How is presenting disease/condition affected by chronic disease/condition?: no chronic disease Evaluation data The following diagnostics were reviewed and interpreted by me:: lab results and radiology exam(s) Lab and/or radiology exams considered but not ordered:: None Interpretation Summary: See resulted MDM Medications / Prescriptions Medications or Prescriptions considered but not ordered:: None Medication administrations:: None Consultations Consultation(s) initiated? (list below): No Diagnosis Vaginal Bleeding Differential Diagnosis: threatened , dysfunctional uterine bleeding and menometrorrhagia Most likely diagnosis given after review of the tests above:: Dysfunctional uterine bleeding Admission Indicated Admission indicated?: not indicated Admission Request Was there a request for admission?: No Disposition Plan Disposition Plan: Discharge Discharge Attestation Discharge Attestation: The patient was given an opportunity to ask questions and understood the discharge instructions. Discharge instructions specifically effects, indications for sooner follow up or return to the emergency department, and the expected course of current diagnosis. Patient condition: Stable Discharge Plan Plan Patient Disposition: HOME (Self Care) Disposition Comment: Stable Prescriptions/Referrals Prescriptions/Med Rec: No Action acetaminophen [Tylenol Extra Strength] 500 mg tablet 1,000 mg PO Q6H PRN (Reason: pain) Qty: 30 0RF metoclopramide HCl [Reglan] 5 mg tablet 5 mg PO TID PRN (Reason: nausea and vomiting) Qty: 20 0RF hydrocodone-acetaminophen 5-325 mg tablet 1 tab PO BID MDD 10mg PRN (Reason: pain) Qty: 10 0RF ibuprofen 600 mg tablet 600 mg PO Q6H PRN (Reason: pain) Qty: 20 0RF Referrals: No Primary/Family,Physician [Primary Care Provider] - In 1 week Problem List Clinical Impression: Dysfunctional uterine bleeding Patient/Caregiver Discharge Instructions Discharge Activity: activity as tolerated Education Materials: ED Dysfunctional Uterine Bleeding Additional Instructions: Thank you for the opportunity for serving you today. You are stable for discharged . You are advised to: Follow-up with your PCP in 1 to 2 days as your PCP to refer you to an [facility] Return to ED for worsening of symptoms Increase oral fluids Print Language: Swedish Stand Alone Forms: Sally Award Info., Patient Portal Info Letter ZANE/JOSE Supervising Physician ZANE/JOSE Supervising Physician: MD Ervin
[2024-10-21 19:11] VITALS: BP 117/81; PULSE 74; RESP 18; TEMP 36.9; O2SAT 100
--- NOTE | 2024-10-21 19:30 | PC.NURSE ---
CALLED PT FOR DC AND NO ANSSWER AT THIS TIME.
== END 2024-10-21 20:30 | disposition home or self-care (01) ==
PROVIDERS: Nurse Practitioner Family; Emergency Provider Emergency Medicine
DX: N93.8 Other specified abnormal uterine and vaginal bleeding (principal)
CPT/HCPCS: 36415; 76856; 80053; 81001; 84703; 85025; 99284

== ENCOUNTER 2024-11-22 20:42 | Emergency (ER) | payer MEDICAID, SELFPAY ==
[2024-11-22 20:47] VITALS: BMI 26.9
[2024-11-22 21:58] VITALS: BP 113/73; PULSE 68; RESP 16; TEMP 36.8; O2SAT 100
--- NOTE | 2024-11-22 22:36 | EDNOTE_ITS ---
ED General RME/HPI General Chief complaint: General Adult/Misc Complain Stated complaint: GENERALIZE NOT FEELING WELL WEAKNESS Time Seen by Provider: 11/22/24 21:20 Arrival date/time: 11/22/24 20:42 29-year-old female with a history of iron deficiency anemia reports with complaints of feeling fatigued and headache. Patient had lab work done 24 hours ago that indicated mild decrease in hemoglobin of 10.1 but hematocrit was normal. Patient denies any shortness of breath chest pain nausea or vomiting vision or hearing changes or weakness. Patient states that she has been discussing symptoms with primary care provider who advised that she may need iron supplements. Patient reports that she is unable to take iron supplements because it causes pain in her teeth she is looking for other methods of receiving iron. Limitations: no limitations Related Data Previous Rx's ?Medication ?Instructions ?Recorded acetaminophen 500 mg tablet 1,000 mg (2 x 500 mg) PO Q 6H PRN 07/09/24 (Tylenol Extra Strength) pain #30 tabs hydrocodone 5 mg-acetaminophen 325 1 tab PO BID PRN pa in #10 tabs 08/27/24 mg tablet ibuprofen 600 mg tablet 600 mg PO Q6H PRN pain #20 t abs 09/21/24 metoclopramide HCl 5 mg tablet 5 mg PO TID PRN nausea and 09/30/24 (Reglan) vomiting #20 tabs Allergies Allergy/AdvReac Type Severity Reaction Status Date / Time No Known Allergies Allergy Verified 11/22/24 20:51 Review of Systems Constitutional Constitutional: Denies chills, Reports difficulty sleeping, Reports fatigue and Reports headache(s) Eyes Eyes: Denies change in vision and Denies eye discharge ENT Ears, Nose, Mouth, and Throat: Denies disequilibrium and Reports headache(s) Cardiovascular Cardiovascular: Denies chest pain and Denies dyspnea Respiratory Respiratory: Denies cough, Denies dyspnea and Denies hemoptysis Gastrointestinal Gastrointestinal: Denies abdominal pain, Denies nausea and Denies vomiting Musculoskeletal Musculoskeletal: Denies joint swelling and Reports myalgias Integumentary/Breasts Skin/Breast: Denies jaundice and Denies unusual bruising Neurologic Neurologic: Denies disequilibrium and Reports headache(s) Psychiatric Psychiatric: Denies anxiety and Denies depression Endocrine Endocrine: Reports fatigue Hematologic/Lymphatic Hematologic/Lymphatic: Denies easy bleeding and Denies easy bruising Past Medical History Past Medical History NEUROLOGIC: Positive Migraine; Negative Neurological Disorders, Cerebrovascular Accident, Transient Ischemic Attacks (TIA), Dementia, Alzheimer's Disease, Parkinson's Disease, Brain Tumor, Meningitis, Seizures, Epilepsy, Multiple Sclerosis, Cerebral Palsy, Amyotrophic Lateral Sclerosis (ALS/Monse Gehrig's), Guillain-Lincroft Syndrome, Spina Bifida, Paralysis, Peripheral Neuropathy, Stein's Palsy, Subdural Hematoma, Head Trauma, Spinal Cord Injury or Traumatic Brain Injury CARDIAC: Positive Cardiac Arrhythmia and Heart Murmur; Negative Cardiac Disorders, Myocardial Infarction, Atrial Fibrillation, Angina, Coronary Artery Disease, Atherosclerotic Heart Disease, Peripheral Vascular Disease, Hypercholesterolemia, Aneurysm, Congestive Heart Failure, Congenital Heart Disease, Valvular Heart Disease, Rheumatic Fever, Cardiomyopathy, Edema, Pericarditis, Cellulitis, Deep Vein Thrombosis, Hypertension, Hypotension or Varicose Veins RESPIRATORY: Negative Chronic Obstructive Pulmonary Disease (COPD), Asthma, Bronchitis, Emphysema, Pneumonia, Pulmonary Fibrosis, Cystic Fibrosis, Tuberculosis, Pulmonary Embolism, Pulmonary Edema or Sleep Apnea GASTROINTESTINAL: Negative Gastrointestinal Disorders, Hepatitis, Cirrhosis, Pancreatitis, Celiac Disease, Gall Bladder Disease, Gastrointestinal Bleed, Esophageal Varices, Heath's Esophagus, Colitis, Ulcerative Colitis, Diverticulitis, Diverticulosis, Ulcer, Colorectal Cancer, Irritable Bowel, Crohn's Disease, Obstructive Bowel, Hiatal Hernia, Hemorrhoids, Gastroesophageal Reflux Disease or Obesity GENITOURINARY: Negative Genitourinary Disorders, Renal Disease, Kidney Stones, Polycystic Kidney Disease, Neurogenic Bladder, Inguinal Hernia, Dialysis, Prostate Cancer or Benign Prostatic Hyperplasia REPRODUCTIVE: Positive Gonorrhea, Previous Pregnancies and Syphilis; Negative Breast Cancer, Endometriosis, Genital Herpes, Pelvic Inflammatory Disease, Testicular Cancer or Uterine Prolapse MUSCULOSKELETAL: Negative Musculoskeletal Disorders, Muscular Dystrophy, Myasthenia Gravis, Marfan's Syndrome, Bone Cancer, Arthritis, Rheumatoid Arthritis, Osteoporosis, Degenerative Disk Disease, Gout, Scoliosis, Carpal Tunnel Syndrome, Fibromyalgia, Fractures, Degenerative Joint Disease, Osteomyelitis or Poliovirus ENT: Negative Cataracts, Glaucoma, Blind, Retinal Detachment, Macular Degener ation, Ear Infection, Deafness, Head Trauma or Eye Prosthesis ENDOCRINE: Negative Endocrine Disorders, Diabetes Mellitus Type 1, Diabetes Mellitus Type 2, Hypoglycemia, Beverly's Syndrome, Gino's Disease, Hyperthyroidism, Hypothyroidism, Parathyroid Disease, Pituitary Disease, Systemic Lupus Erythematosus, Syndrome of Inappropriate Antidiuretic Hormone (SIADH), Adrenal Disease or Graves' Disease HEMATOLOGIC: Positive Blood Disorders and Anemia; Negative Leukemia, Hemophilia, Thalassemia, Sickle Cell Disease or Clotting Problems PSYCHO/SOCIAL: Positive Bipolar Disorder and Depression; Negative Psychiatric Problems, Schizophrenia, Recreational Drug Use, Depression, Anxiety, Self-Mutilation, Attention Deficit Disorder, Attention Deficit Hyperactivity Disorder, Post Traumatic Stress Disorder or Eating Disorder OTHER HISTORY: Positive Hospitalization, Blood Transfusions and Anesthesia Reactions; Negative Autoimmune Disease, Down Syndrome, Autism, Developmental Delay, Shingl es, Falls, Blood Transfusion Reaction, Organ Transplant, Chemotherapy, Radiation Therapy, Hyperbaric Therapy, MRSA, VRSA, Vancomycin-Resistant Enterococci, Human Immunodeficiency Virus (HIV), Chicken Pox, Measles, Mumps, Rubella (Namibian Measles), Pertussis, Clostridium Difficile, Cancer, Breast Cancer, Cervical Cancer, Colorectal Cancer, Lung Cancer, Ovarian Cancer, Prostate Cancer or Testicular Cancer Family History FAMILY HISTORY: Positive Family Respiratory Disorders and Family Cancer; Negative Family Psychiatric Problems, Family Cardiac Disorders, Family Gastroint estinal Problems, Family Surgery or Family Anesthesia Reaction Surgical History SURGICAL: Positive Mastectomy; Negative Cardiac Surgery, Open Heart Surgery, Coronary Artery Bypass Graft, Valve Replacement, Vascular Surgery, Coronary Stent, Cardiac Catheterization, Pacemaker, Angiogram, Auto Implanted Cardiovert Defib, Carotid Endarterectomy, Endocrine Surgery, Thyroidectomy, Ear Surgery, Tympanostomy Tube, Eye Surgery, Nose Surgery, Oral Surgery, Tonsillectomy, Adenoidectomy, Cochlear Implant, Corneal Transplant, Throat Surgery, Abdominal Surgery, Tracheostomy, Gastric Bypass Surgery, Gastrostomy, Bowel Surgery, Nephrectomy, Transurethral Resection, Joint Replacement, Amputation, Open Reduction Internal Fixation, Arthroscopy, Neurologic Surgery, Brain Shunt, Lumpectomy, Hysterectomy, Tubal Ligation, Section, Vasectomy or Organ Transplant Social History SMOKING STATUS: Never smoker SECOND HAND EXPOSURE: No SUBSTANCE USE: does not use ED Exam General Limitations: Present no limitations General appearance: Present alert and in no apparent distress Head Head exam: Present atraumatic Eye Eye exam: Present normal appearance, PERRL and EOMI ENT ENT exam: Present normal exam, normal oropharynx and mucous membranes moist Neck Neck exam: Present normal inspection, full ROM and trachea midline Chest Chest inspection: Present normal inspection and symmetric chest wall rise Respiratory Respiratory exam: Present normal lung sounds bilaterally Cardiovascular Cardiovascular exam: Present regular rate, normal rhythm and normal heart sounds Abdominal Exam Abdominal exam: Present soft and normal bowel sounds Extremities Exam Extremities exam: Present normal inspection and full ROM Back Exam Back exam: Present normal inspection and full ROM Neurological Exam Neurological exam: Present alert, oriented X3 and CN II-XII intact Psychiatric Psychiatric exam: Present normal affect and normal mood Skin Skin exam: Present warm, dry, intact and normal color Course Course Course Narrative: 29-year-old female with a history of mild iron deficiency anemia reports with complaints of fatigue and requesting different methods of taking iron supplements other than the tablets. Patient is educated on iron deficiency anemia benefits of reading the disorder but patient is advised that she should follow-up with her primary care provider for further evaluation and discussion of treatment of the iron levels. Patient did not have labs drawn today as she came with labs drawn 24 hours ago which indicated hemoglobin of 10.1. Patient denies shortness of breath or chest pain she has stable vital signs and nontoxic-appearing and will be discharged home with advised to follow-up with PCP Quality Measures none Vital Signs Vital signs: Vital Signs Temperature 98.3 F 11/22/24 21:58 Pulse Rate 68 11/22/24 21:58 Respiratory Rate 16 11/22/24 21:58 Blood Pressure 113/73 11/22/24 21:58 Pulse Oximetry (%) 100 11/22/24 21:58 Oxygen Delivery Method Room Air 11/22/24 21:58 Discharge Plan Plan Patient Disposition: HOME (Self Care) Prescriptions/Referrals Prescriptions/Med Rec: No Action acetaminophen [Tylenol Extra Strength] 500 mg tablet 1,000 mg PO Q6H PRN (Reason: pain) Qty: 30 0RF metoclopramide HCl [Reglan] 5 mg tablet 5 mg PO TID PRN (Reason: nausea and vomiting) Qty: 20 0RF hydrocodone-acetaminophen 5-325 mg tablet 1 tab PO BID MDD 10mg PRN (Reason: pain) Qty: 10 0RF ibuprofen 600 mg tablet 600 mg PO Q6H PRN (Reason: pain) Qty: 20 0RF Referrals: Juan Luis Amaral MD [Primary Care Provider] - In 1 week Problem List Clinical Impression: Malaise and fatigue Patient/Caregiver Discharge Instructions Discharge Activity: activity as tolerated Education Materials: Anemia Additional Instructions: Follow-up with your primary care provider Print Language: Surinamese Stand Alone Forms: Sally Award Info., Patient Portal Info Letter
--- NOTE | 2024-11-22 23:01 | PC.NURSE ---
no answer x 1 at 2300. checked outside and lobby.
--- NOTE | 2024-11-22 23:56 | PC.NURSE ---
no answer x 2 at 2350. checked outside and lobby.
--- NOTE | 2024-11-23 00:19 | PC.NURSE ---
no answer x 3 at 2318. checked outside and lobby. Notified provider.
== END 2024-11-23 00:19 | disposition left against medical advice (07) ==
PROVIDERS: Emergency Provider Emergency Medicine; PCP Family Medicine
DX: D50.9 Iron deficiency anemia, unspecified (principal); R53.83 Other fatigue; R53.81 Other malaise; Z53.29 Procedure and treatment not carried out because of patient's decision for other reasons
CPT/HCPCS: 99281

== ENCOUNTER 2024-12-22 13:30 | Emergency (ER) | payer MEDICAID, SELFPAY ==
[2024-12-22 13:43] VITALS: BP 131/77; PULSE 87; RESP 16; TEMP 37; O2SAT 96; BMI 25.0
--- NOTE | 2024-12-22 13:53 | EDNOTE_ITS ---
ED Female Urogenital RME/HPI General Chief complaint: Urogenital-Female Stated complaint: Vaginal discharge X 2 days, UTI tx, poss. preg Time Seen by Provider: 12/22/24 13:53 Source: patient Arrival date/time: 12/22/24 13:30 Mode of arrival: ambulatory Limitations: no limitations RME / HPI MD Complaint: dysuria Related Data Previous Rx's ?Medication ?Instructions ?Recorded acetaminophen 500 mg tablet 1,000 mg (2 x 500 mg) PO Q 6H PRN 07/09/24 (Tylenol Extra Strength) pain #30 tabs hydrocodone 5 mg-acetaminophen 325 1 tab PO BID PRN pa in #10 tabs 08/27/24 mg tablet ibuprofen 600 mg tablet 600 mg PO Q6H PRN pain #20 t abs 09/21/24 metoclopramide HCl 5 mg tablet 5 mg PO TID PRN nausea and 09/30/24 (Reglan) vomiting #20 tabs doxycycline monohydrate 100 mg 100 mg PO BID 10 days # 20 caps 12/22/24 capsule fluconazole 100 mg tablet 100 mg PO QDAY #2 tab-caps 0 12/22/24 (Diflucan) ibuprofen 800 mg tablet 800 mg PO Q8H PRN pain #30 t abs 12/22/24 Allergies Allergy/AdvReac Type Severity Reaction Status Date / Time No Known Allergies Allergy Verified 12/22/24 13:35 Review of Systems Constitutional Constitutional: Reports system reviewed and no additional complaints, except as documented Eyes Eyes: Reports system reviewed and no additional complaints, except as documented, Denies dry eyes, Denies exophthalmos and Reports floaters Cardiovascular Cardiovascular: Denies chest pain with activity and Denies claudication ED Exam General Limitations: Present no limitations General appearance: Present alert and in no apparent distress Head Head exam: Present atraumatic Eye Eye exam: Present normal appearance, PERRL and EOMI ENT ENT exam: Present normal exam, normal oropharynx and mucous membranes moist Neck Neck exam: Present normal inspection, full ROM and trachea midline Chest Chest inspection: Present normal inspection and symmetric chest wall rise Respiratory Respiratory exam: Present normal lung sounds bilaterally Cardiovascular Cardiovascular exam: Present regular rate, normal rhythm and normal heart sounds Abdominal Exam Abdominal exam: Present soft, tenderness, rebound (The abdomen is soft somewhat tender in the right upper quadrant, there is no apparent masses, there is no guarding present. Negative for rebound tenderness.) and normal bowel sounds Abdominal tenderness: Present diffuse Extremities Exam Extremities exam: Present normal inspection and full ROM Back Exam Back exam: Present normal inspection and full ROM Neurological Exam Neurological exam: Present alert and oriented X3 Psychiatric Psychiatric exam: Present normal affect and normal mood Skin Skin exam: Present warm, dry, intact and normal color Course Course Course Narrative: Patient will have a CBC, CMP, hCG Quality Measures none Orders Category Date Time Status Beta HCG,Quantitative Stat Lab 12/22/24 14:23 Completed CBC Stat Lab 12/22/24 14:23 Completed Chlamydia/GC/TV - PCR Stat Lab 12/22/24 15:01 Received Comprehensive Metabolic Panel Stat Lab 12/22/24 14:23 Completed Lipase Stat Lab 12/22/24 14:23 Completed Urinalysis Stat Lab 12/22/24 15:01 Completed Ketorolac Inj [Toradol Inj] Med 12/22/24 18:00 Discontinued 30 mg IM X1 ONE Ondansetron Odt [Zofran Odt] Med 12/22/24 15:11 Discontinued 4 mg PO X1 ONE cefTRIAXone [Rocephin] 500 mg Med 12/22/24 18:05 Discontinued Lidocaine 1% 20 ml [Xylocaine 1% 20 ML] 1 ml IM X1 Vital Signs Vital signs: Vital Signs Temperature 98.6 F 12/22/24 13:43 Pulse Rate 87 12/22/24 13:43 Respiratory Rate 16 12/22/24 13:43 Blood Pressure 131/77 H 12/22/24 13:43 Pulse Oximetry (%) 96 12/22/24 13:43 Oxygen Delivery Method Room Air 12/22/24 13:43 Pulse ox room air 96% Urogenital - Female Patient data External records reviewed:: Other (specify) (N/A) Clinical information provided by:: none (N/A) Social determinants that could affect healthcare access:: none Patient has the following chronic illnesses:: N/A How is presenting disease/condition affected by chronic disease/condition?: no chronic disease Evaluation data The following diagnostics were reviewed and interpreted by me:: other (specify) (N/A) Lab and/or radiology exams considered but not ordered:: N/A Interpretation Summary: N/A Medications / Prescriptions Medications or Prescriptions considered but not ordered:: N/A Medication administrations:: Medication Administration History Discontinued Medications Ceftriaxone Sodium 500 mg/ (Lidocaine HCl 1 ml) 0 mg IM X1 ONE Stop: 12/22/24 18:06 Last Admin: 12/22/24 18:11 Dose: 1,000 mg Documented By: Ketorolac Tromethamine (Ketorolac Inj 60 Mg/2 Ml Vial) 30 mg IM X1 ONE Stop: 12/22/24 18:01 Last Admin: 12/22/24 18:07 Dose: 30 mg Documented By: Ondansetron HCl (Ondansetron Odt 4 Mg Tabrap) 4 mg PO X1 ONE; Protocol Stop: 12/22/24 15:12 Last Admin: 12/22/24 15:23 Dose: Not Given Documented By: Non-Admin Reason: Cancelled by Provider None Consultations Consultation(s) initiated? (list below): No Diagnosis Urogenital Female Differential Diagnosis: trichomoniasis, cervicitis, ovarian cyst and cystitis Most likely diagnosis given after review of the tests above:: N/A Admission Indicated Admission indicated?: not indicated Admission Request Was there a request for admission?: No Disposition Plan Disposition Plan: Discharge Discharge Attestation Discharge Attestation: The patient and all family members were given an opportunity to ask questions and understood the discharge instructions. Discharge instructions specifically effects, indications for sooner follow up or return to the emergency department, and the expected course of current diagnosis. Patient condition: Stable Critical Care Time Critical Care Time Critical Care Time: No Discharge Plan Plan Patient Disposition: HOME (Self Care) Discharge Disposition comment: Discharge in no apparent distress Patient condition on transfer: Stable Prescriptions/Referrals Prescriptions/Med Rec: New doxycycline monohydrate 100 mg capsule 100 mg PO BID 10 Days Qty: 20 0RF ibuprofen 800 mg tablet 800 mg PO Q8H PRN (Reason: pain) Qty: 30 0RF fluconazole [Diflucan] 100 mg tablet 100 mg PO QDAY Qty: 2 0RF No Action acetaminophen [Tylenol Extra Strength] 500 mg tablet 1,000 mg PO Q6H PRN (Reason: pain) Qty: 30 0RF metoclopramide HCl [Reglan] 5 mg tablet 5 mg PO TID PRN (Reason: nausea and vomiting) Qty: 20 0RF hydrocodone-acetaminophen 5-325 mg tablet 1 tab PO BID MDD 10mg PRN (Reason: pain) Qty: 10 0RF ibuprofen 600 mg tablet 600 mg PO Q6H PRN (Reason: pain) Qty: 20 0RF Referrals: Juan Luis Amaral MD [Primary Care Provider] - In 1 week Problem List Clinical Impression: Screen for STD (sexually transmitted disease) Impression comment: Patient will be discharged in no apparent distress Patient/Caregiver Discharge Instructions Discharge Activity: activity as tolerated Print Language: Armenian Stand Alone Forms: Sally Award Info., Patient Portal Info Letter PA/EMBEDDED DEVELOPER Supervising Physician PA/EMBEDDED DEVELOPER Supervising Physician: Ana Maria
[2024-12-22 14:46] LABS: Basophils # (Auto) 0.1 Thou/mm3 (0.0-0.2); Basophils % (Auto) 2 % (0-2.5); Eosinophils # (Auto) 0.3 Thou/mm3 (0.0-0.5); Eosinophils % (Auto) 3 % (0-10); Hemoglobin 10.4 g/dL (12.0-16.0); Immature Granulocytes % (Auto) 0 % (0-0); Immature Granulocytes Auto 0.02 Thou/mm3 (0.00-0.00); Lymphocytes # (Auto) 1.5 Thou/mm3 (1.0-4.8); Lymphocytes % (Auto) 18 % (10-50); Mean Corpuscular HGB Conc 31.5 g/dl (31.0-37.0); Mean Corpuscular Hemoglobin 24.1 pg (25.0-35.0); Mean Corpuscular Volume 76 fL (80-100); Monocytes # (Auto) 0.5 Thou/mm3 (0.0-0.8); Monocytes % (Auto) 7 % (0-12); Neutrophils # (Auto) 5.7 Thou/mm3 (1.8-7.7); Neutrophils % (Auto) 70 % (37-80); Nucleated Red Blood Cell % 0 /100 WBC (0); Platelet Count 300 Thou/mm3 (140-440); RDW Standard Deviation 42.1 fL (36.4-46.3); Red Blood Count 4.32 Miln/mm3 (4.00-5.20); White Blood Count 8.2 Thou/mm3 (3.6-11.0)
[2024-12-22 15:10] LABS: Collection Type, Urine Clean Catch
[2024-12-22 15:17] LABS: Alanine Aminotransferase < 7 U/L (10-49); Albumin, Serum 4.5 gm/dL (3.5-5.0); Albumin/Globulin Ratio 1.6 (1.2-2.2); Alkaline Phosphatase 82 U/L (46-116); Anion Gap 8 (7-16); Aspartate Amino Transferase 12 U/L (0-34); BUN/Creatinine Ratio 11 Ratio (12-20); Beta HCG,Quantitative < 1 mIU/mL (<5.0); Bilirubin,Total 0.9 mg/dL (0.3-1.2); Blood Urea Nitrogen 9 mg/dL (9-23); Calcium 9.4 mg/dL (8.3-10.6); Calcium (Corrected) 9.4 mg/dL (8.5-10.1); Carbon Dioxide 27.3 mMol/L (20.0-31.0); Chloride 104 mMol/L (98-107); Creatinine (Component) 0.8 mg/dL (0.6-1.3); Estimated Creatinine Clearance 98.9 mL/min (>60); Globulin 2.9 gm/dL (2.3-3.5); Glucose 91 mg/dL (74-106); Lipase 34 U/L (12-53); Osmolality,Calculated 276 (275-295); Potassium 4.4 mMol/L (3.4-5.1); Sodium 139 mMol/L (136-145); Total Protein 7.4 gm/dL (5.7-8.2); eGFR > 60 See Note
[2024-12-22 15:22] LABS: Bacteria,Urine Rare; Bilirubin,Urine Negative (Negative); Blood,Urine Negative (Negative); Color,Urine Yellow (Lt Yel-Yel); Glucose, Urine Negative (Negative); Ketones,Urine Negative (Negative); Leukocyte Esterase,Urine Positive (Negative); Nitrite,Urine Negative (Negative); PH,Urine 5.5 (5.0-7.0); Protein,Urine Negative (Neg - Trace); RBC,Urine 13 /hpf (0-3); Squamous Epithelial Cell,Urine 41 /hpf (0-5); Urobilinogen,Urine Negative mg/dL (0.0-1.0); WBC,Urine 17 /hpf (0-5)
[2024-12-22 15:32] LABS: Clarity,Urine Hazy (Clear/Hazy)
[2024-12-22] MEDS: KETOROLAC INJ 60 MG/2 ML VIAL 30 MG IM (18:07)
[2024-12-22] MEDS: cefTRIAXone 500 MG, LIDOCAINE 1% 20 ML 1 ML IM (18:11)
[2024-12-23 09:30] LABS: Chlamydia trachomatis PCR Negative (Not Detect); Neisseria Gonorrhoeae DNA PCR Negative (Not Detect); Trichomonas Positive (Negative)
== END 2024-12-22 18:27 | disposition home or self-care (01) ==
PROVIDERS: Nurse Practitioner Primary Care; Physician Assistant; Emergency Provider Emergency Medicine; PCP Family Medicine
DX: Z11.3 Encounter for screening for infections with a predominantly sexual mode of transmission (principal)
CPT/HCPCS: 36415; 80053; 81001; 83690; 84702; 85025; 87491; 87591; 87661; 96372; 99283; J0696; J1885; J3490

== ENCOUNTER 2025-01-20 12:01 | Emergency (ER) | payer MEDICAID, SELFPAY ==
[2025-01-20 12:15] VITALS: BP 121/76; PULSE 74; RESP 18; TEMP 36.6; O2SAT 99; BMI 30.2
--- NOTE | 2025-01-20 12:21 | XR_ITS ---
Examination: Abdomen sonogram, Limited Date and time of exam: January 20, 2025 12:45 PM INDICATIONS: Epigastric pain right upper abdominal pain beginning 3 weeks ago Technique: Real-time gusman scale transabdominal sonographic images of the upper abdomen obtained. Findings: Multiple gallstones Normal gallbladder wall Normal common bile duct 0.4 cm Pancreatic head 3.3 cm Liver 15 cm fatty infiltration Normal hepatopedal portal venous flow Patent IVC IMPRESSION: Cholelithiasis, negative for cholecystitis
--- NOTE | 2025-01-20 12:22 | EDNOTE_ITS ---
ED Abdominal Pain RME/HPI General Chief Complaint: Abdominal Pain Stated complaint: Right upper abdominal pain X 3 weeks Time seen by provider: 01/20/25 12:09 Arrival date/time: 01/20/25 12:01 RME / HPI RME / HPI narrative: 29-year-old female patient with no significant past medical history, came in for evaluation regarding right upper quadrant pain. Patient was seen by her PCP today for right upper quadrant pain and was referred to us for further evaluation. Patient was diagnosed with gallstone more than 3 weeks ago, she even went to [place], and was advised to follow-up with a surgeon. She supposed to see Dr. Kim, on January 31. Patient denies any vomiting but complains of nausea. Patient denies any fever. Related Data Previous Rx's ?Medication ?Instructions ?Recorded acetaminophen 500 mg tablet 1,000 mg (2 x 500 mg) PO Q 6H PRN 07/09/24 (Tylenol Extra Strength) pain #30 tabs hydrocodone 5 mg-acetaminophen 325 1 tab PO BID PRN pa in #10 tabs 08/27/24 mg tablet ibuprofen 600 mg tablet 600 mg PO Q6H PRN pain #20 t abs 09/21/24 metoclopramide HCl 5 mg tablet 5 mg PO TID PRN nausea and 09/30/24 (Reglan) vomiting #20 tabs fluconazole 100 mg tablet 100 mg PO QDAY #2 tab-caps 0 12/22/24 (Diflucan) ibuprofen 800 mg tablet 800 mg PO Q8H PRN pain #30 t abs 12/22/24 dicyclomine 20 mg tablet 20 mg PO QID PRN abdominal p ain 01/20/25 #30 tabs ibuprofen 800 mg tablet 800 mg PO Q8H PRN pain #30 t abs 01/20/25 Allergies Allergy/AdvReac Type Severity Reaction Status Date / Time No Known Allergies Allergy Verified 01/20/25 12:06 Review of Systems Review of Systems Narrative Review of Systems: Review of system reviewed and within normal limits except mentioned in HPI ED Exam Narrative Physical exam: VITAL SIGNS: Reviewed. GENERAL APPEARANCE: Alert and interactive, follows commands, no acute distress, HEAD AND FACE: Non-traumatic. ENT: PERRL, pink conjunctivitis, eyelid no trauma, Mucous membrane moist. NECK: Supple, nontender, no nuchal rigidity. CHEST: No tenderness, no crepitus, no paradoxical movement, no retractions. LUNGS: Clear, well ventilated, symmetric, no rales, no wheezing, no ronchi, no stridor, good breath sounds bilaterally. HEART: Regular rate, regular rhythm, no murmur, no gallops. ABDOMEN: Soft, positive bowel sounds, nondistended, no guarding, right upper quadrant tenderness, no rebound, no masses, RECTAL: Deferred. GENITAL: Deferred. NEUROLOGICAL: Gross motor function intact sensory function intact, Appropriate for age. MUSCULOSKELETAL: low back nontender, full range of motion. EXTREMITIES: Nontender, full range of motion. SKIN: Color pink, dry, no rash, no lacerations, no abrasions, no contusions. LYMPHATICS: Deferred. Course Quality Measures none Orders Category Date Time Status US gall bladder Stat Exams 01/20/25 12:21 Completed CBC Stat Lab 01/20/25 12:26 Completed Comprehensive Metabolic Panel Stat Lab 01/20/25 12:26 Completed HCG Qualitative,Urine Stat Lab 01/20/25 14:05 Completed Lipase Stat Lab 01/20/25 12:26 Completed Partial Thromboplastin Time Stat Lab 01/20/25 12:26 Completed Prothrombin Time with INR Stat Lab 01/20/25 12:26 Completed UA, C/S IF [Urinalysis, C/S if Indicated] Stat Lab 01/20/25 14:05 Completed Dicyclomine [Bentyl] Med 01/20/25 12:21 Discontinued 20 mg PO X1 ONE Ketorolac Inj [Toradol Inj] Med 01/20/25 12:21 Discontinued 30 mg IM X1 ONE Vital Signs Vital signs: Vital Signs Temperature 97.8 F 01/20/25 12:15 Pulse Rate 74 01/20/25 12:15 Respiratory Rate 18 01/20/25 12:15 Blood Pressure 121/76 01/20/25 12:15 Pulse Oximetry (%) 99 01/20/25 12:15 Oxygen Delivery Method Room Air 01/20/25 12:15 Abdominal Pain MDM MDM Narrative MDM Narrative:: 29-year-old female patient with no significant past medical history, came in for evaluation regarding right upper quadrant pain. Patient was seen by her PCP today for right upper quadrant pain and was referred to us for further evaluation. Patient was diagnosed with gallstone more than 3 weeks ago, she even went to [place], and was advised to follow-up with a surgeon. She supposed to see Dr. Kim, on January 31. Patient denies any vomiting but comp lains of nausea. Patient denies any fever. Ultrasound gallbladder showed cholelithiasis with no sign of acute cholecystitis. Clinically patient is not showing any sign of acute cholecystitis.. Patient is febrile. CBC no leukocytosis. LFTs normal total bili is normal patient pain is totally gone prior to discharge. Patient was advised to follow-up with general surgeon Dr. Kim next month on the . Patient appears nontoxic and hemodynamically stable .Decision to discharge the patient. The patient/family was given an opportunity to ask questions and understood their discharge instructions. Discharge instructions specifically included follow up provider and time frame, current and/or new medications and possible side effects, indications for sooner follow up or return to the [facility] department, and the expected course of current diagnosis. Patient reports feeling better as well and giving evidence of significant clinical improvement, I believe patient is now a candidate for discharge. Patient data External records reviewed:: None Clinical information provided by:: patient Social determinants that could affect healthcare access:: none Patient has the following chronic illnesses:: None How is presenting disease/condition affected by chronic disease/condition?: no chronic disease Evaluation data The following diagnostics were reviewed and interpreted by me:: lab results and radiology exam(s) Lab and/or radiology exams considered but not ordered:: None see results MDM Interpretation Summary: None Medications / Prescriptions Medications or Prescriptions considered but not ordered:: None Medication administrations:: Medication Administration History Discontinued Medications Dicyclomine HCl (Dicyclomine 10 Mg Capsule) 20 mg PO X1 ONE Stop: 01/20/25 12:22 Last Admin: 01/20/25 14:00 Dose: 20 mg Documented By: MABEL Ketorolac Tromethamine (Ketorolac Inj 60 Mg/2 Ml Vial) 30 mg IM X1 ONE Stop: 01/20/25 12:22 Last Admin: 01/20/25 14:00 Dose: 30 mg Documented By: MABEL Toradol, Bentyl Consultations Consultation(s) initiated? (list below): No Diagnosis Differential diagnosis abdominal pain: abdominal pain, calculus of kidney and constipation Most likely diagnosis given after review of the tests above:: Biliary colic, cholelithiasis Admission Indicated Admission indicated?: not indicated Admission Request Was there a request for admission?: No Disposition Plan Disposition Plan: Discharge Discharge Attestation Discharge Attestation: The patient was given an opportunity to ask questions and understood the discharge instructions. Discharge instructions specifically effects, indications for sooner follow up or return to the emergency department, and the expected course of current diagnosis. Patient condition: Stable Discharge Plan Plan Patient Disposition: HOME (Self Care) Discharge Disposition comment: Stable Prescriptions/Referrals Prescriptions/Med Rec: New ibuprofen 800 mg tablet 800 mg PO Q8H PRN (Reason: pain) Qty: 30 0RF dicyclomine 20 mg tablet 20 mg PO QID PRN (Reason: abdominal pain) Qty: 30 0RF No Action acetaminophen [Tylenol Extra Strength] 500 mg tablet 1,000 mg PO Q6H PRN (Reason: pain) Qty: 30 0RF metoclopramide HCl [Reglan] 5 mg tablet 5 mg PO TID PRN (Reason: nausea and vomiting) Qty: 20 0RF ibuprofen 800 mg tablet 800 mg PO Q8H PRN (Reason: pain) Qty: 30 0RF fluconazole [Diflucan] 100 mg tablet 100 mg PO QDAY Qty: 2 0RF hydrocodone-acetaminophen 5-325 mg tablet 1 tab PO BID MDD 10mg PRN (Reason: pain) Qty: 10 0RF ibuprofen 600 mg tablet 600 mg PO Q6H PRN (Reason: pain) Qty: 20 0RF Referrals: No Primary/Family,Physician [Primary Care Provider] - In 1 week Problem List Clinical Impression: Biliary colic, Cholelithiasis Patient/Caregiver Discharge Instructions Discharge Activity: activity as tolerated Education Materials: Treating Gallstones Additional Instructions: Thank you for the opportunity for serving you today. You are stable for discharged . You are advised to: Follow-up with Dr. Kim, general surgeon as instructed Return to ED for worsening of symptoms Increase oral fluids Take medication as prescribed Please avoid drinking milk, eating fried, greasy, fried foods. Please avoid eating meat Print Language: Polish Stand Alone Forms: Sally Award Info., Patient Portal Info Letter PA/HOSPITALITY HOST Supervising Physician PA/HOSPITALITY HOST Supervising Physician: MD Vasile
[2025-01-20 12:40] LABS: Basophils # (Auto) 0.2 Thou/mm3 (0.0-0.2); Basophils % (Auto) 2 % (0-2.5); Eosinophils # (Auto) 0.3 Thou/mm3 (0.0-0.5); Eosinophils % (Auto) 4 % (0-10); Hematocrit 34.8 % (36.0-46.0); Hemoglobin 10.8 g/dL (12.0-16.0); Immature Granulocytes Auto 0.02 Thou/mm3 (0.00-0.00); Lymphocytes # (Auto) 1.7 Thou/mm3 (1.0-4.8); Lymphocytes % (Auto) 19 % (10-50); Mean Corpuscular HGB Conc 31.0 g/dl (31.0-37.0); Mean Corpuscular Hemoglobin 24.4 pg (25.0-35.0); Mean Corpuscular Volume 79 fL (80-100); Monocytes # (Auto) 0.5 Thou/mm3 (0.0-0.8); Monocytes % (Auto) 6 % (0-12); Neutrophils # (Auto) 5.9 Thou/mm3 (1.8-7.7); Neutrophils % (Auto) 69 % (37-80); Nucleated Red Blood Cell # 0.00 Thou/mm3 (0.00-0.00); Nucleated Red Blood Cell % 0 /100 WBC (0); Platelet Count 283 Thou/mm3 (140-440); RDW Standard Deviation 45.5 fL (36.4-46.3); Red Blood Count 4.43 Miln/mm3 (4.00-5.20); White Blood Count 8.6 Thou/mm3 (3.6-11.0)
[2025-01-20 12:56] LABS: INR 1.0 (0.9-1.3); Partial Thromboplastin Time 29.6 Seconds (22.0-36.0); Prothrombin Time 11.3 Seconds (9.0-12.2)
[2025-01-20 13:17] LABS: Alanine Aminotransferase 9 U/L (10-49); Albumin, Serum 4.7 gm/dL (3.5-5.0); Albumin/Globulin Ratio 1.4 (1.2-2.2); Alkaline Phosphatase 80 U/L (46-116); Anion Gap 9 (7-16); Aspartate Amino Transferase 15 U/L (0-34); BUN/Creatinine Ratio 15 Ratio (12-20); Bilirubin,Total 0.4 mg/dL (0.3-1.2); Blood Urea Nitrogen 12 mg/dL (9-23); Calcium 9.3 mg/dL (8.3-10.6); Calcium (Corrected) 9.3 mg/dL (8.5-10.1); Carbon Dioxide 23.7 mMol/L (20.0-31.0); Chloride 107 mMol/L (98-107); Creatinine (Component) 0.8 mg/dL (0.6-1.3); Estimated Creatinine Clearance 116.0 mL/min (>60); Globulin 3.4 gm/dL (2.3-3.5); Glucose 94 mg/dL (74-106); Lipase 36 U/L (12-53); Osmolality,Calculated 279 (275-295); Potassium 4.3 mMol/L (3.4-5.1); Sodium 140 mMol/L (136-145); Total Protein 8.1 gm/dL (5.7-8.2); eGFR > 60 See Note
[2025-01-20] MEDS: DICYCLOMINE 10 MG CAPSULE 20 MG PO (14:00)
[2025-01-20] MEDS: KETOROLAC INJ 60 MG/2 ML VIAL 30 MG IM (14:00)
[2025-01-20 14:12] LABS: Collection Type, Urine Clean Catch
[2025-01-20 14:21] LABS: HCG Qualitative,Urine Negative
[2025-01-20 14:23] LABS: Bacteria,Urine Rare; Bilirubin,Urine Negative (Negative); Blood,Urine 1+ (Negative); Budding Yeast,Urine Present; Clarity,Urine Turbid (Clear/Hazy); Color,Urine Yellow (Lt Yel-Yel); Culture Indicated,Urine Contaminated; Glucose, Urine Negative (Negative); Ketones,Urine Negative (Negative); Leukocyte Esterase,Urine Positive (Negative); Nitrite,Urine Negative (Negative); PH,Urine 5.0 (5.0-7.0); Protein,Urine Trace (Neg - Trace); RBC,Urine 25 /hpf (0-3); Specific Gravity,Urine 1.026 (1.001-1.035); Squamous Epithelial Cell,Urine 44 /hpf (0-5); Urobilinogen,Urine Negative mg/dL (0.0-1.0); WBC,Urine 74 /hpf (0-5)
== END 2025-01-20 15:46 | disposition home or self-care (01) ==
PROVIDERS: Nurse Practitioner Family; Emergency Provider Emergency Medicine
DX: K80.70 Calculus of gallbladder and bile duct without cholecystitis without obstruction (principal)
CPT/HCPCS: 36415; 76705; 80053; 81001; 81025; 83690; 85025; 85610; 85730; 96372; 99283; J1885; A9270

== ENCOUNTER 2025-04-21 18:43 | Emergency (ER) | payer MEDICAID, SELFPAY ==
[2025-04-21 18:45] VITALS: BMI 27.4
[2025-04-21 19:45] VITALS: BP 120/74; PULSE 83; RESP 20; TEMP 36.9; O2SAT 99
--- NOTE | 2025-04-21 19:48 | XR_ITS ---
Examination: Transvaginal ultrasound of the pelvis, complete Technique: Transvaginal sonographic images pelvis performed using gusman scale imaging Exam date and time: April 21, 2025, 2040 hours INDICATIONS: Pelvic pain and vaginal bleeding today FINDINGS: Uterus 9.4 cm, blood in the endometrium, 3.7 x 1.1 x 3.0 cm Endometrial stripe 13 mm No uterine mass or intrauterine gestation Right ovary 3.9 cm arterial flow Left ovary 2.8 cm arterial flow IMPRESSION: Fluid likely blood in the endometrium, clinical correlation advised and short-term follow-up recommended
--- NOTE | 2025-04-21 19:49 | EDRME_ITS ---
Rapid Medical Screening Exam [facility] Arrival date/time: 04/21/25 18:43 30F with history of drug use presents to ED with several hours of L pelvic pain and vaginal bleeding. Patient usually has regular cycles and she already had one this month. Chief Complaint: Vaginal Bleeding Vital signs: Vital Signs Temperature 98.4 F 04/21/25 19:45 Pulse Rate 83 04/21/25 19:45 Respiratory Rate 20 04/21/25 19:45 Blood Pressure 120/74 04/21/25 19:45 Pulse Oximetry (%) 99 04/21/25 19:45 Oxygen Delivery Method Room Air 04/21/25 19:45 Exam: Unremarkable Clinical Impression: vs miscarriage vs vaginal bleeding vs ovarian cyst
[2025-04-21 20:11] LABS: Basophils # (Auto) 0.2 Thou/mm3 (0.0-0.2); Basophils % (Auto) 3 % (0-2.5); Eosinophils # (Auto) 0.3 Thou/mm3 (0.0-0.5); Eosinophils % (Auto) 4 % (0-10); Hematocrit 32.3 % (36.0-46.0); Hemoglobin 9.9 g/dL (12.0-16.0); Immature Granulocytes Auto 0.02 Thou/mm3 (0.00-0.00); Lymphocytes # (Auto) 1.9 Thou/mm3 (1.0-4.8); Lymphocytes % (Auto) 23 % (10-50); Mean Corpuscular HGB Conc 30.7 g/dl (31.0-37.0); Mean Corpuscular Hemoglobin 23.6 pg (25.0-35.0); Mean Corpuscular Volume 77 fL (80-100); Monocytes # (Auto) 0.6 Thou/mm3 (0.0-0.8); Monocytes % (Auto) 8 % (0-12); Neutrophils # (Auto) 5.2 Thou/mm3 (1.8-7.7); Neutrophils % (Auto) 63 % (37-80); Nucleated Red Blood Cell # 0.00 Thou/mm3 (0.00-0.00); Nucleated Red Blood Cell % 0 /100 WBC (0); Platelet Count 314 Thou/mm3 (140-440); RDW Standard Deviation 43.5 fL (36.4-46.3); Red Blood Count 4.19 Miln/mm3 (4.00-5.20); White Blood Count 8.2 Thou/mm3 (3.6-11.0)
[2025-04-21 20:47] LABS: Alanine Aminotransferase < 7 U/L (10-49); Anion Gap 10 (7-16); Aspartate Amino Transferase 14 U/L (0-34); BUN/Creatinine Ratio 13 Ratio (12-20); Bilirubin,Total 0.4 mg/dL (0.3-1.2); Blood Urea Nitrogen 10 mg/dL (9-23); Calcium 9.0 mg/dL (8.3-10.6); Carbon Dioxide 26.7 mMol/L (20.0-31.0); Chloride 106 mMol/L (98-107); Creatinine (Component) 0.8 mg/dL (0.6-1.3); Estimated Creatinine Clearance 102.2 mL/min (>60); Glucose 97 mg/dL (74-106); Osmolality,Calculated 283 (275-295); Potassium 4.2 mMol/L (3.4-5.1); Sodium 143 mMol/L (136-145); Total Protein 7.5 gm/dL (5.7-8.2); eGFR > 60 See Note
[2025-04-21 20:48] LABS: Albumin, Serum 4.8 gm/dL (3.5-5.0); Albumin/Globulin Ratio 1.8 (1.2-2.2); Alkaline Phosphatase 72 U/L (46-116); Beta HCG,Quantitative < 1 mIU/mL (<5.0); Calcium (Corrected) 9.0 mg/dL (8.5-10.1); Globulin 2.7 gm/dL (2.3-3.5)
[2025-04-21 21:01] LABS: Collection Type, Urine Clean Catch
[2025-04-21 21:21] LABS: Bacteria,Urine Rare; Bilirubin,Urine Negative (Negative); Blood,Urine 3+ (Negative); Clarity,Urine Turbid (Clear/Hazy); Color,Urine Yellow (Lt Yel-Yel); Culture Indicated,Urine Not Indicated; Glucose, Urine Negative (Negative); Ketones,Urine Negative (Negative); Leukocyte Esterase,Urine Positive (Negative); Nitrite,Urine Negative (Negative); PH,Urine 7.0 (5.0-7.0); Protein,Urine Trace (Neg - Trace); RBC,Urine 5 /hpf (0-3); Specific Gravity,Urine 1.027 (1.001-1.035); Squamous Epithelial Cell,Urine 20 /hpf (0-5); Urobilinogen,Urine Negative mg/dL (0.0-1.0); WBC,Urine 3 /hpf (0-5)
[2025-04-21 22:25] LABS: Amphetamine/Methamp Scrn,U Negative (Negative); Barbiturate Screen,Urine Negative (Negative); Benzodiazepines Screen,Urine Negative (Negative); Benzoylecgonine Screen, Ur Negative (Negative); Fentanyl Screen,Urine Negative (Negative); Opiate Screen,Urine Negative (Negative); THC Screen,Urine Negative (Negative)
[2025-04-21 22:38] VITALS: BP 113/78; PULSE 94; RESP 18; TEMP 36.9; O2SAT 99
--- NOTE | 2025-04-21 22:52 | EDNOTE_ITS ---
ED OB Contraction Preg RMI/HPI General Chief complaint: Vaginal Bleeding Stated complaint: vaginal bleeding Arrival date/time: 04/21/25 18:43 RME / HPI RME / HPI Narrative: 04/21/25 18:43 30F with history of drug use presents to ED with several hours of L pelvic pain and vaginal bleeding. Patient usually has regular cycles and she already had one this month. Dr. Pabon?s Main ED Evaluation: 30yo female presents to the ED for a chief complaint of vaginal bleeding. Patient states she recently had her menses one week ago, but was concerned when she started having vaginal bleeding again today, so she came in for evaluation. Patient states this has been going on for the last 3-4 months. Patient denies any abdominal pain, N/V, fever, chills, or any other associated symptoms. NKA. Related Data Previous Rx's ?Medication ?Instructions ?Recorded acetaminophen 500 mg tablet 1,000 mg (2 x 500 mg) PO Q 6H PRN 07/09/24 (Tylenol Extra Strength) pain #30 tabs hydrocodone 5 mg-acetaminophen 325 1 tab PO BID PRN pa in #10 tabs 08/27/24 mg tablet ibuprofen 600 mg tablet 600 mg PO Q6H PRN pain #20 t abs 09/21/24 metoclopramide HCl 5 mg tablet 5 mg PO TID PRN nausea and 09/30/24 (Reglan) vomiting #20 tabs fluconazole 100 mg tablet 100 mg PO QDAY #2 tab-caps 0 12/22/24 (Diflucan) ibuprofen 800 mg tablet 800 mg PO Q8H PRN pain #30 t abs 12/22/24 dicyclomine 20 mg tablet 20 mg PO QID PRN abdominal p ain 01/20/25 #30 tabs ibuprofen 800 mg tablet 800 mg PO Q8H PRN pain #30 t abs 01/20/25 Allergies Allergy/AdvReac Type Severity Reaction Status Date / Time No Known Allergies Allergy Verified 01/20/25 12:06 Review of Systems Review of Systems Systems Reviewed: All systems reviewed, normal except as documented Past Medical History Past Medical History NEUROLOGIC: Positive Migraine; Negative Neurological Disorders, Cerebrovascular Accident, Transient Ischemic Attacks (TIA), Dementia, Alzheimer's Disease, Parkinson's Disease, Brain Tumor, Meningitis, Seizures, Epilepsy, Multiple Sclerosis, Cerebral Palsy, Amyotrophic Lateral Sclerosis (ALS/Monse Gehrig's), Guillain-Freeland Syndrome, Spina Bifida, Paralysis, Peripheral Neuropathy, Stein's Palsy, Subdural Hematoma, Head Trauma, Spinal Cord Injury or Traumatic Brain Injury CARDIAC: Positive Cardiac Arrhythmia and Heart Murmur; Negative Cardiac Disorders, Myocardial Infarction, Atrial Fibrillation, Angina, Coronary Artery Disease, Atherosclerotic Heart Disease, Peripheral Vascular Disease, Hypercholesterolemia, Aneurysm, Congestive Heart Failure, Congenital Heart Disease, Valvular Heart Disease, Rheumatic Fever, Cardiomyopathy, Edema, Pericarditis, Cellulitis, Deep Vein Thrombosis, Hypertension, Hypotension or Varicose Veins RESPIRATORY: Negative Chronic Obstructive Pulmonary Disease (COPD), Asthma, Bronchitis, Emphysema, Pneumonia, Pulmonary Fibrosis, Cystic Fibrosis, Tuberculosis, Pulmonary Embolism, Pulmonary Edema or Sleep Apnea GASTROINTESTINAL: Negative Gastrointestinal Disorders, Hepatitis, Cirrhosis, Pancreatitis, Celiac Disease, Gall Bladder Disease, Gastrointestinal Bleed, Esophageal Varices, Heath's Esophagus, Colitis, Ulcerative Colitis, Diverticulitis, Diverticulosis, Ulcer, Colorectal Cancer, Irritable Bowel, Crohn's Disease, Obstructive Bowel, Hiatal Hernia, Hemorrhoids, Gastroesophageal Reflux Disease or Obesity GENITOURINARY: Negative Genitourinary Disorders, Renal Disease, Kidney Stones, Polycystic Kidney Disease, Neurogenic Bladder, Inguinal Hernia, Dialysis, Prostate Cancer or Benign Prostatic Hyperplasia REPRODUCTIVE: Positive Gonorrhea, Previous Pregnancies and Syphilis; Negative Breast Cancer, Endometriosis, Genital Herpes, Pelvic Inflammatory Disease, Testicular Cancer or Uterine Prolapse MUSCULOSKELETAL: Negative Musculoskeletal Disorders, Muscular Dystrophy, Myasthenia Gravis, Marfan's Syndrome, Bone Cancer, Arthritis, Rheumatoid Arthritis, Osteoporosis, Degenerative Disk Disease, Gout, Scoliosis, Carpal Tunnel Syndrome, Fibromyalgia, Fractures, Degenerative Joint Disease, Osteomyelitis or Poliovirus ENT: Negative Cataracts, Glaucoma, Blind, Retinal Detachment, Macular Degeneration, Ear Infection, Deafness, Head Trauma or Eye Prosthesis ENDOCRINE: Negative Endocrine Disorders, Diabetes Mellitus Type 1, Diabetes Mellitus Type 2, Hypoglycemia, [place]'s Syndrome, Dequincy's Disease, Hyperthyroidism, Hypothyroidism, Parathyroid Disease, Pituitary Disease, Systemic Lupus Erythematosus, Syndrome of Inappropriate Antidiuretic Hormone (SIADH), Adrenal Disease or Graves' Disease HEMATOLOGIC: Positive Blood Disorders and Anemia; Negative Leukemia, Hemophilia, Thalassemia, Sickle Cell Disease or Clotting Problems PSYCHO/SOCIAL: Positive Bipolar Disorder and Depression; Negative Psychiatric Problems, Schizophrenia, Recreational Drug Use, Depression, Anxiety, Self-Mutilation, Attention Deficit Disorder, Attention Deficit Hyperactivity Disorder, Post Traumatic Stress Disorder or Eating Disorder OTHER HISTORY: Positive Hospitalization, Blood Transfusions and Anesthesia Reactions; Negative Autoimmune Disease, Down Syndrome, Autism, Developmental Delay, Shingles, Falls, Blood Transfusion Reaction, Organ Transplant, Chemotherapy, Radiation Therapy, Hyperbaric Therapy, MRSA, VRSA, Vancomycin-Resistant Enterococci, Human Immunodeficiency Virus (HIV), Chicken Pox, Measles, Mumps, Rubella (Uzbek Measles), Pertussis, Clostridium Difficile, Cancer, Breast Cancer, Cervical Cancer, Colorectal Cancer, Lung Cancer, Ovarian Cancer, Prostate Cancer or Testicular Cancer Family History FAMILY HISTORY: Positive Family Respiratory Disorders and Family Cancer; Negative Family Psychiatric Problems, Family Cardiac Disorders, Family Gastrointestinal Problems, Family Surgery or Family Anesthesia Reaction Surgical History SURGICAL: Positive Mastectomy; Negative Cardiac Surgery, Open Heart Surgery, Coronary Artery Bypass Graft, Valve Replacement, Vascular Surgery, Coronary Stent, Cardiac Catheterization, Pacemaker, Angiogram, Auto Implanted Cardiovert Defib, Carotid Endarterectomy, Endocrine Surgery, Thyroidectomy, Ear Surgery, Tympanostomy Tube, Eye Surgery, Nose Surgery, Oral Surgery, Tonsillectomy, Adenoidectomy, Cochlear Implant, Corneal Transplant, Throat Surgery, Abdominal Surgery, Tracheostomy, Gastric Bypass Surgery, Gastrostomy, Bowel Surgery, Nephrectomy, Transurethral Resection, Joint Replacement, Amputation, Open Reduction Internal Fixation, Arthroscopy, Neurologic Surgery, Brain Shunt, Lumpectomy, Hysterectomy, Tubal Ligation, Section, Vasectomy or Organ Transplant Social History SMOKING STATUS: Never smoker SECOND HAND EXPOSURE: No SUBSTANCE USE: does not use ED Exam Narrative Physical exam: Generally patient was alert and in no obvious distress, heart regular rate and rhythm, lungs clear to auscultation equal bilaterally, abdomen soft bowel sounds present's and nontender, extremities show no edema, skin is warm pale and dry, neurologic exam [place] Coma Scale of 15 Course Quality Measures none Orders Category Date Time Status US transvaginal Stat Exams 04/21/25 19:48 Completed Beta HCG,Quantitative Stat Lab 04/21/25 20:00 Completed CBC Stat Lab 04/21/25 20:00 Completed CMP [Comprehensive Metabolic Panel] Stat Lab 04/21/25 20:00 Completed Drug Screen,Urine Stat Lab 04/21/25 20:50 Completed Urinalysis, C/S if Indicated Stat Lab 04/21/25 20:50 Completed Vital Signs Vital signs: Vital Signs Temperature 98.4 F 04/21/25 19:45 Pulse Rate 83 04/21/25 19:45 Respiratory Rate 20 04/21/25 19:45 Blood Pressure 120/74 04/21/25 19:45 Pulse Oximetry (%) 99 04/21/25 19:45 Oxygen Delivery Method Room Air 04/21/25 19:45 Vaginal Bleeding MDM Narrative MDM Narrative: Scribe Attestation: 04/21/25 - Tresa Devine am scribing for and in the presence of Dr. Pabon. Patient is chronically anemic with a hemoglobin tonight at 9.9. test was negative. Pelvic ultrasound was unremarkable. Patient was counseled on the need to follow-up with her [employer]EL[employer] physician. Patient data External records reviewed:: [facility] previous records (Per chart review, patient was seen here on 01/20/25 for biliary colic.) Clinical information provided by:: patient Social determinants that could affect healthcare access:: none Patient has the following chronic illnesses:: none How is presenting disease/condition affected by chronic disease/condition?: no chronic disease Evaluation data The following diagnostics were reviewed and interpreted by me:: lab results and radiology exam(s) Lab and/or radiology exams considered but not ordered:: none Interpretation Summary: [employer] [facility] Report Signed Patient: XANDER VITALE [facility] Record#: [id number] Birthdate: 1995 Age/Sex: 30 / F Location: [facility] Attending Dr: Ordering Physician: Cesar Shea PA-C Date of Service: 04/21/25 Procedure(s): US transvaginal Accession Number(s): [id number] cc: Ronnie Rodriguez MD; NO PRIMARY/FAMILY,PHYSICIAN; Cesar Shea PA-C~ Examination: Transvaginal ultrasound of the pelvis, complete Technique: Transvaginal sonographic images pelvis performed using gusman scale imaging Exam date and time: April 21, 2025, 2040 hours INDICATIONS: Pelvic pain and vaginal bleeding today FINDINGS: Uterus 9.4 cm, blood in the endometrium, 3.7 x 1.1 x 3.0 cm Endometrial stripe 13 mm No uterine mass or intrauterine gestation Right ovary 3.9 cm arterial flow Left ovary 2.8 cm arterial flow IMPRESSION: Fluid likely blood in the endometrium, clinical correlation advised and short-term follow-up recommended Dictated By: Ronnie Rodriguez MD Signed By: <Electronically signed by Ronnie Rodriguez MD in OV> 04/21/25 7456 Medications / Prescriptions Medications or Prescriptions considered but not ordered:: none Medication administrations:: none Consultations Consultation(s) initiated? (list below): No Diagnosis Vaginal Bleeding Differential Diagnosis: other (See MDM) Most likely diagnosis given after review of the tests above:: see clinical impression below Admission Indicated Admission indicated?: not indicated Admission Request Was there a request for admission?: No Disposition Plan Disposition Plan: Discharge Discharge Attestation Discharge Attestation: The patient and all family members were given an opportunity to ask questions and understood the discharge instructions. Discharge instructions specifically effects, indications for sooner follow up or return to the emergency department, and the expected course of current diagnosis. Patient condition: Stable Discharge Plan Plan Patient Disposition: HOME (Self Care) Prescriptions/Referrals Prescriptions/Med Rec: No Action acetaminophen [Tylenol Extra Strength] 500 mg tablet 1,000 mg PO Q6H PRN (Reason: pain) Qty: 30 0RF metoclopramide HCl [Reglan] 5 mg tablet 5 mg PO TID PRN (Reason: nausea and vomiting) Qty: 20 0RF ibuprofen 800 mg tablet 800 mg PO Q8H PRN (Reason: pain) Qty: 30 0RF fluconazole [Diflucan] 100 mg tablet 100 mg PO QDAY Qty: 2 0RF hydrocodone-acetaminophen 5-325 mg tablet 1 tab PO BID MDD 10mg PRN (Reason: pain) Qty: 10 0RF ibuprofen 600 mg tablet 600 mg PO Q6H PRN (Reason: pain) Qty: 20 0RF ibuprofen 800 mg tablet 800 mg PO Q8H PRN (Reason: pain) Qty: 30 0RF dicyclomine 20 mg tablet 20 mg PO QID PRN (Reason: abdominal pain) Qty: 30 0RF Referrals: No Primary/Family,Physician [Primary Care Provider] - In 1 week Problem List Clinical Impression: Vaginal bleeding, Anemia Patient/Caregiver Discharge Instructions Additional Instructions: Follow-up with your [employer]EL[employer] physician for further treatment and evaluation. Print Language: Kiswahili Stand Alone Forms: Sally Award Info., Patient Portal Info Letter
== END 2025-04-21 23:31 | disposition home or self-care (01) ==
PROVIDERS: Physician Assistant; Emergency Provider Emergency Medicine
DX: N93.9 Abnormal uterine and vaginal bleeding, unspecified (principal); D64.9 Anemia, unspecified
CPT/HCPCS: 36415; 76830; 80053; 80307; 81001; 84702; 85025; 99281

== ENCOUNTER 2025-05-14 13:39 | Emergency (ER) | payer MEDICAID, SELFPAY ==
[2025-05-14 14:11] VITALS: BP 121/82; PULSE 86; RESP 18; TEMP 37; O2SAT 99; BMI 27.4
--- NOTE | 2025-05-14 14:19 | EDNOTE_ITS ---
ED Skin Abcess FB-RME/HPI General Chief complaint: Skin/Abscess/Foreign Body Stated complaint: INCISION FROM CHOLECYSTECTOMY OPEN, DRAINAGE Time Seen by Provider: 05/14/25 13:53 Arrival date/time: 05/14/25 13:39 30-year-old female patient came in for evaluation regarding possible surgical site dehiscence. Patient had a laparoscopic cholecystectomy done in [place] 2 weeks ago few days ago patient noticed serous drainage with wound opening on the top laparoscopic site. Patient is denying any fever no abdominal pain no vomiting. Patient had a scheduled consult or follow-up with surgeon in 4 days Related Data Previous Rx's ?Medication ?Instructions ?Recorded acetaminophen 500 mg tablet 1,000 mg (2 x 500 mg) PO Q 6H PRN 07/09/24 (Tylenol Extra Strength) pain #30 tabs hydrocodone 5 mg-acetaminophen 325 1 tab PO BID PRN pa in #10 tabs 08/27/24 mg tablet ibuprofen 600 mg tablet 600 mg PO Q6H PRN pain #20 t abs 09/21/24 metoclopramide HCl 5 mg tablet 5 mg PO TID PRN nausea and 09/30/24 (Reglan) vomiting #20 tabs fluconazole 100 mg tablet 100 mg PO QDAY #2 tab-caps 0 12/22/24 (Diflucan) ibuprofen 800 mg tablet 800 mg PO Q8H PRN pain #30 t abs 12/22/24 dicyclomine 20 mg tablet 20 mg PO QID PRN abdominal p ain 01/20/25 #30 tabs ibuprofen 800 mg tablet 800 mg PO Q8H PRN pain #30 t abs 01/20/25 sulfamethoxazole 800 1 tab PO BID #14 tabs mg-trimethoprim 160 mg tablet (Bactrim DS) Allergies Allergy/AdvReac Type Severity Reaction Status Date / Time No Known Allergies Allergy Verified 05/14/25 13:44 Review of Systems Review of Systems Narrative Review of Systems: Review of system reviewed and within normal limits except mentioned in HPI ED Exam Narrative Physical exam: VITAL SIGNS: Reviewed. GENERAL APPEARANCE: Alert and interactive, follows commands, no acute distress, HEAD AND FACE: Non-traumatic. ENT: PERRL, pink conjunctivitis, eyelid no trauma, Mucous membrane moist. NECK: Supple, nontender, no nuchal rigidity. CHEST: No tenderness, no crepitus, no paradoxical movement, no retractions. LUNGS: Clear, well ventilated, symmetric, no rales, no wheezing, no ronchi, no stridor, good breath sounds bilaterally. HEART: Regular rate, regular rhythm, no murmur, no gallops. ABDOMEN: Soft, positive bowel sounds, nondistended, no guarding, nontender, no rebound, no masses, laparoscopic site, small wound dehiscence on the top incision, no drainage noted no redness nontender RECTAL: Deferred. GENITAL: Deferred. NEUROLOGICAL: Gross motor function intact sensory function intact, Appropriate for age. MUSCULOSKELETAL: low back nontender, full range of motion. EXTREMITIES: Nontender, full range of motion. SKIN: Color pink, dry, no rash, no lacerations, no abrasions, no contusions. LYMPHATICS: Deferred. Course Quality Measures none Orders Category Date Time Status Trimethoprim/Sulfa 160/800 Ds [Bactrim Ds] Med 05/14/25 14:17 Once 1 tab PO X1 ONE Vital Signs Vital signs: Vital Signs Temperature 98.6 F 05/14/25 14:11 Pulse Rate 86 05/14/25 14:11 Respiratory Rate 18 05/14/25 14:11 Blood Pressure 121/82 05/14/25 14:11 Pulse Oximetry (%) 99 05/14/25 14:11 Oxygen Delivery Method Room Air 05/14/25 14:11 Skin / Abscess / Foreign Body MDM Narrative MDM Narrative:: 30-year-old female patient came in for evaluation regarding possible surgical site dehiscence. Patient had a laparoscopic cholecystectomy done in [place] 2 weeks ago few days ago patient noticed serous drainage with wound opening on the top laparoscopic site. Patient is denying any fever no abdominal pain no vomiting. Patient had a scheduled consult or follow-up with surgeon in 4 days Clinically there is mild infection to the laparoscopic site, with wound dehiscence patient will be started on Bactrim. Advised to follow-up with surgeon in 4 days. Patient stable for discharge home Patient data External records reviewed:: None Clinical information provided by:: patient Social determinants that could affect healthcare access:: none Patient has the following chronic illnesses:: None How is presenting disease/condition affected by chronic disease/condition?: no chronic disease Evaluation data The following diagnostics were reviewed and interpreted by me:: other (specify) (None) Lab and/or radiology exams considered but not ordered:: None Interpretation Summary: None Medications / Prescriptions Medications or Prescriptions considered but not ordered:: None Medication administrations:: Medication Administration History Trimethoprim/Sulfamethoxazole (Trimethoprim/Sulfa 160/800 Ds Tablet) 1 tab PO X1 ONE Stop: 05/14/25 14:18 Bactrim Consultations Consultation(s) initiated? (list below): No Diagnosis Skin/Abscess Differential Diagnosis: abscess of skin or subcutaneous tissue and cellulitis Most likely diagnosis given after review of the tests above:: Wound dehiscence, Admission Indicated Admission indicated?: not indicated Admission Request Was there a request for admission?: No Disposition Plan Disposition Plan: Discharge Discharge Attestation Discharge Attestation: The patient was given an opportunity to ask questions and understood the discharge instructions. Discharge instructions specifically effects, indications for sooner follow up or return to the emergency department, and the expected course of current diagnosis. Patient condition: Stable Discharge Plan Plan Patient Disposition: HOME (Self Care) Discharge Disposition comment: Stable Prescriptions/Referrals Prescriptions/Med Rec: New sulfamethoxazole-trimethoprim [Bactrim DS] 800-160 mg tablet 1 tab PO BID Qty: 14 0RF No Action acetaminophen [Tylenol Extra Strength] 500 mg tablet 1,000 mg PO Q6H PRN (Reason: pain) Qty: 30 0RF metoclopramide HCl [Reglan] 5 mg tablet 5 mg PO TID PRN (Reason: nausea and vomiting) Qty: 20 0RF ibuprofen 800 mg tablet 800 mg PO Q8H PRN (Reason: pain) Qty: 30 0RF fluconazole [Diflucan] 100 mg tablet 100 mg PO QDAY Qty: 2 0RF hydrocodone-acetaminophen 5-325 mg tablet 1 tab PO BID MDD 10mg PRN (Reason: pain) Qty: 10 0RF ibuprofen 600 mg tablet 600 mg PO Q6H PRN (Reason: pain) Qty: 20 0RF ibuprofen 800 mg tablet 800 mg PO Q8H PRN (Reason: pain) Qty: 30 0RF dicyclomine 20 mg tablet 20 mg PO QID PRN (Reason: abdominal pain) Qty: 30 0RF Problem List Clinical Impression: Abdominal wound dehiscence Patient/Caregiver Discharge Instructions Discharge Activity: activity as tolerated Education Materials: ED Post Op Wound Check, Infection Additional Instructions: Thank you for the opportunity for serving you today. You are stable for discharged . You are advised to: Follow-up with your surgeon next week Return to ED for worsening of symptoms Increase oral fluids Take medication as prescribed Print Language: Japanese Stand Alone Forms: Sally Award Info., Patient Portal Info Letter PA/JOSE Supervising Physician ZANE/JOSE Supervising Physician: MD fitz
[2025-05-14] MEDS: TRIMETHOPRIM/SULFA 160/800 DS TABLET 1 TAB PO (15:04)
== END 2025-05-14 15:09 | disposition home or self-care (01) ==
LOC: SERX 15:43
PROVIDERS: Emergency Provider Family Medicine
DX: T81.328A Disruption or dehiscence of closure of other specified internal operation (surgical) wound, initial encounter (principal); Y83.6 Removal of other organ (partial) (total) as the cause of abnormal reaction of the patient, or of later complication, without mention of misadventure at the time of the procedure
CPT/HCPCS: 99281; A9270